=== PATIENT | female | born 1970 | race Two or more races ===

== ENCOUNTER 2017-01-25 21:49 | Inpatient (IN) | payer MEDICAID ==
[~2017-01-25] VITALS: Ht 170.2 cm; Wt 63.5 kg
[~2017-01-25 21:49] MED LIST: DIFLUCAN150 MG PO; KEFLEX500 MG ORAL; METRONIDAZOLE500 MG ORAL; NKM
[2017-01-25 22:12] VITALS: BP 166/96
[2017-01-25] MEDS ORDERED: Acetaminophen 500mg (ES) tab ORAL ONE (22:30)
[2017-01-25] MEDS ORDERED: Ertapenem 1 GM in NS 55 ML IV ONE (22:30)
[2017-01-25] MEDS ORDERED: NS 1000ml 1,900 ML IVLG ONE (22:30)
--- NOTE | 2017-01-25 22:38 | Emergency Room Report ---
History of Present Illness General Chief Complaint: Female Urogenital Problems Source: Patient Present Illness HPI Is a 46-year-old female with a history of recurrent urinary tract infection. She just finished a course of Macrobid. She had a urine culture done 7 days ago which grew out ESBL Escherichia coli. It is sensitive to Macrobid. Is intermediate to Augmentin. Unfortunately, it is resistant to all of the oral antibiotics. It is sensitive to Invanz, imipenem, and cefoxitin. It is resistant to ceftriaxone, Zosyn, Levaquin, Cipro, and Bactrim. I reviewed his urine culture from her e-mail. She presents with chief complaint of left flank pain and fever. Onset couple days. Also with oral infection that got better after amoxicillin. Body pain is 7/10. No fever or chills but no nausea no vomiting. Allergies: Coded Allergies: No Known Allergies (Unverified , 03/16/16) Patient History Past Medical History: see triage record, old chart reviewed Past Surgical History: other Pertinent Family History: none Social History: Denies: smoking Last Menstrual Period: 01/09/17 Now: No Immunizations: other Reviewed Nursing Documentation: PMH: Agreed, PSxH: Agreed Review of Systems Constitutional: Reports: fever, malaise Eye: Denies: blurred vision, eye pain ENT: Denies: ear pain, nose congestion, throat swelling Respiratory: Denies: cough, shortness of breath Cardiovascular: Denies: chest pain, palpitations Gastrointestinal: Denies: abdominal pain, diarrhea, nausea, vomiting Genitourinary: Reports: dysuria, frequency Musculoskeletal: Denies: back pain, joint pain Skin: Denies: rash Neurological: Denies: headache, numbness Endocrine: Denies: increased thirst, increased urine Hematologic/Lymphatic: Denies: easy bruising All Other Systems: negative except mentioned in HPI Physical Exam Vital Signs Date Time Temp Pulse Resp B/P Pulse Ox O2 Delivery O2 Flow Rate FiO2 01/25/17 21:57 98.4 119 16 166/96 100 Room Air vitals with tachycardia and hypertension Sp02 EP Interpretation: reviewed, normal General Appearance: well appearing, no apparent distress, alert Head: normocephalic, atraumatic Eyes: bilateral eye EOMI, bilateral eye PERRL ENT: hearing grossly normal, normal pharynx Neck: full range of motion, supple, no meningismus Respiratory: chest non-tender, lungs clear, normal breath sounds Cardiovascular #1: regular rate, rhythm, no murmur Gastrointestinal: normal bowel sounds, non tender, no mass, no organomegaly, no bruit, non-distended Genitourinary: CVA tenderness (L) Musculoskeletal: back normal, gait/station normal, normal range of motion Psychiatric: mood/affect normal Skin: warm/dry Medical Decision Making Diagnostic Impression: Primary Impression: Sepsis Qualified Codes: A41.9 - Sepsis, unspecified organism Additional Impressions: Infection due to ESBL-producing Escherichia coli UTI (urinary tract infection) Qualified Codes: N30.00 - Acute cystitis without hematuria ER Course Patient presents with left flank pain and evidence of UTI. She just finished Macrobid. It is sensitive to the Escherichia coli that cultured out a week ago. Unfortunately she also has severe resistant to multiple drugs from his Escherichia coli. I gave her Invanz. Because of the fever worrisome for sepsis. Will admit for IV antibiotics. There is a small kidney stone. She may have had an obstructing stone before that can cause frequent infection. There is no evidence of that now. Lab Results Impression labs with leukocytosis CT/MRI/US Diagnostic Results CT/MRI/US Diagnostic Results : Imaging Test Ordered: CT abdomen and pelvis Impression read by radiologist. left kidney stone. No obstruction. Last Vital Signs Date Time Temp Pulse Resp B/P Pulse Ox O2 Delivery O2 Flow Rate FiO2 01/25/17 21:57 98.4 119 16 166/96 100 Room Air Status: improved Disposition: ADMITTED INPATIENT Condition: Serious Referrals: NOT CHOSEN LÓPEZ/,REFERRING (PCP) LARRY SEGOVIA M.D. Jan 25, 2017 22:38
[2017-01-25 22:46] LABS: APPEARANCE,URINE CLEAR; KETONES,URINE NEGATIVE (NEGATIVE); LEUKOCYTE ESTERASE ,URINE 2+ (NEGATIVE); NITRITE,URINE NEGATIVE (NEGATIVE); PH,URINE 6.5 (4.5-8.0); PROTEIN,URINE 1+ (NEGATIVE); UROBILINOGEN,URINE NORMAL MG/DL (0.0-1.0)
[2017-01-25 23:11] LABS: BACTERIA,URINE FEW /HPF; RBC,URINE 0-2 /HPF (0 - 2); SQUAMOUS EPITHELIAL CELL,UR FEW /LPF (NONE/OCC)
[2017-01-25] MEDS ORDERED: Ertapenem (INVanz) Inj ONE (23:16)
[2017-01-25 23:18] LABS: MEAN CORPUSCULAR HEMOGLOBIN 31.1 PG (27.0-31.0); MEAN CORPUSCULAR HGB CONC 34.1 G/DL (32.0-36.0); MEAN CORPUSCULAR VOLUME 91 FL (80-99); MEAN PLATELET VOLUME 5.6 FL (6.5-10.1); PLATELET COUNT 289 K/UL (150-450); RED BLOOD COUNT 4.42 M/UL (4.20-5.40); RED CELL DISTRIBUTION WIDTH 12.2 % (11.6-14.8); TROPONIN I < 0.30 ng/mL (<=0.30); WHITE BLOOD COUNT 15.8 K/UL (4.8-10.8)
[2017-01-25 23:23] LABS: REFLEX LACTIC ACID YES OR NO YES
[2017-01-25 23:24] LABS: PROTHROMBIN TIME 10.3 SEC (9.30-11.50)
[2017-01-25] MEDS ORDERED: Miralax 17gm pkt ORAL PRN (23:30)
[2017-01-25] MEDS ORDERED: Nitroglycerin Subl 0.4mg tab (Bottle Of 25) SL PRN (23:30)
[2017-01-25 23:35] LABS: ALANINE AMINOTRANSFERASE 14 U/L (3-33); ALBUMIN/GLOBULIN RATIO 1.4 (1.0-2.7); ANION GAP 18 (5-15); ASPARTATE AMINO TRANSFERASE 17 U/L (5-40); CARBON DIOXIDE 22 mEQ/L (20-30); CHLORIDE 96 mEQ/L (98-107); CREATININE 0.8 mg/dL (0.5-0.9); GLOMERULAR FILTRATION RATE > 60 mL/min (>60); HEMOLYSIS 5; POTASSIUM 3.7 mEQ/L (3.4-4.9); SODIUM 136 mEQ/L (135-145); TOTAL PROTEIN 6.5 g/dL (6.6-8.7)
[2017-01-26 00:21] VITALS: BP 152/83
[2017-01-26 00:36] LABS: BAND NEUTROPHILS % (MANUAL) 2 % (0-8); LYMPHOCYTES % (MANUAL) 3 % (20-45); NEUTROPHILS % (MANUAL) 93 % (45-75); TOTAL CELLS COUNTED 100
[2017-01-26 00:37] LABS: BASOPHILS % (MANUAL) 0 % (0-2); EOSINOPHILS % (MANUAL) 0 % (0-3); PLATELET ESTIMATE ADEQUATE; PLATELET MORPHOLOGY NORMAL
[2017-01-26] MEDS ORDERED: Vancomycin 1 GM in D5W 275 ML IVPB SCH (02:00)
[2017-01-26] MEDS ORDERED: Vancomycin 1gm inj IVPB ONE (02:52)
[2017-01-26 04:00] VITALS: BP 130/66
[2017-01-26] MEDS ORDERED: Ertapenem (INVanz) Inj ONE (06:51)
[2017-01-26 06:54] LABS: BASOPHILS % (AUTO) 0.8 % (0.0-2.0); EOSINOPHILS % (AUTO) 0.4 % (0.0-3.0); LYMPHOCYTES % (AUTO) 7.4 % (20.0-45.0); MEAN CORPUSCULAR HEMOGLOBIN 29.8 PG (27.0-31.0); MEAN CORPUSCULAR HGB CONC 33.2 G/DL (32.0-36.0); MEAN CORPUSCULAR VOLUME 90 FL (80-99); MONOCYTES % (AUTO) 6.6 % (1.0-10.0); NEUTROPHILS % (AUTO) 84.7 % (45.0-75.0); PLATELET COUNT 315 K/UL (150-450); RED CELL DISTRIBUTION WIDTH 12.5 % (11.6-14.8); WHITE BLOOD COUNT 13.7 K/UL (4.8-10.8)
[2017-01-26 07:08] LABS: ALANINE AMINOTRANSFERASE 16 U/L (3-33); ALBUMIN/GLOBULIN RATIO 1.3 (1.0-2.7); ANION GAP 13 (5-15); ASPARTATE AMINO TRANSFERASE 22 U/L (5-40); CALCIUM 8.2 mg/dL (8.6-10.2); CARBON DIOXIDE 22 mEQ/L (20-30); CHLORIDE 101 mEQ/L (98-107); CREATININE 0.7 mg/dL (0.5-0.9); GLOMERULAR FILTRATION RATE > 60 mL/min (>60); HEMOLYSIS 4; SODIUM 136 mEQ/L (135-145); TOTAL PROTEIN 5.8 g/dL (6.6-8.7)
[2017-01-26 08:00] VITALS: BP_SYST 120; BP_SYST 20; BP_DIAS 79; BP_DIAS 97
[2017-01-26] MEDS ORDERED: Morphine Sulfate 4mg/ml Inj IVP PRN (08:00)
[2017-01-26] MEDS: DuoNeb 0.5-3(2.5)mg/3ml neb HHN PRN ×2 (08:41→20:32)
[2017-01-26] MEDS: Morphine Sulfate 2mg/ml Inj IVP PRN ×2 (08:53→21:14)
[2017-01-26] MEDS: Heparin 5000 units/ml inj SUBQ SCH ×2 (08:54→21:03)
[2017-01-26] MEDS ORDERED: Cefepime HCl 2 GM in D5W 110 ML IV SCH (09:00)
--- NOTE | 2017-01-26 09:11 | Diagnostic Imaging Report ---
Indication: Abdominal pain, recurrent urinary tract infection, painful urination Technique: Spiral acquisitions obtained through the abdomen and pelvis. No oral contrast utilized, per emergency room physician request No IV contrast utilized, per referring physician request.. Multiplanar reconstructions were generated. Total dose length product 525 mGycm. CTDIvol(s) 11 mGy. Dose reduction achieved using automated exposure control Comparison: None Findings: There is a 3 mm calculus within the left lower pole collecting system. No right renal calculi. No ureteral calculi, hydronephrosis, or hydroureter demonstrated. Note, however, that the distal ureters are not well demonstrated, due to a paucity of body fat. There are numerous calcifications within the left pelvis which probably represent phleboliths but ureteral calculus as etiology of any of these is not completely excludable. The bladder is unremarkable The appendix is normal. There is no evidence of diverticulosis or diverticulitis. No small bowel distention. No free or loculated intraperitoneal air or fluid. Distal esophagus, stomach, duodenum are unremarkable. Likely contrast limits assessment of the other solid organs. The gallbladder is nondistended. The bile ducts are normal in caliber. The liver, pancreas, spleen, adrenals are unremarkable. No retroperitoneal or mesenteric mass or adenopathy. No pelvic mass or adenopathy. The included lung bases demonstrate centrilobular interstitial septal thickening diffusely, as well as peripheral vague nodular opacities on the right and scattered groundglass opacities bilaterally.. The heart size is normal. Impression: Nonobstructing left lower pole 3 mm renal calculus. No evidence of ureteral calculi or obstructive uropathy Bilateral basilar pulmonary parenchymal interstitial disease, as well as nodular and groundglass opacities. This is nonspecific. Consider further evaluation with high resolution CT as clinically indicated graft no other acute or significant findings This agrees with the preliminary interpretation provided overnight by [facility]. The CT scanner at [facility] is accredited by the [employer] and the scans are performed using protocols designed to limit radiation exposure to as low as reasonably achievable to attain images of sufficient resolution adequate for diagnostic evaluation.
[2017-01-26 12:00] VITALS: BP 114/76
--- NOTE | 2017-01-26 12:07 | Consultation ---
Consult Note Consult Note Id Dic # [id number] SEJAL RUEDA M.D. Jan 26, 2017 12:07
--- NOTE | 2017-01-26 13:52 | Diagnostic Imaging Report ---
Indication: DYSPNEA Technique: One view of the chest Comparison: none Findings: There is diffuse bilateral interstitial disease. No effusions, or focal airspace consolidation. Heart size is normal. Impression: Bilateral diffuse interstitial disease, acuity indeterminate in the absence of prior studies. Differential considerations are vast, including pulmonary edema, infectious or noninfectious inflammatory process, chronic interstitial fibrotic change. Right clinical findings
[2017-01-26] MEDS: Meropenem 1 GM in NS 110 ML IVPB SCH ×2 (14:27→21:03)
--- NOTE | 2017-01-26 15:00 | History and Physical ---
History of Present Illness General Date patient seen: Jan 26, 2017 Reason for Hospitalization: Female Urogenital Problems Present Illness HPI 46-year-old female with a history of recurrent urinary tract infection with ESBL Escherichia coli. She presents with chief complaint of left flank pain and fever. Onset couple days. Also with oral infection that got better after amoxicillin. Body pain is 7/10. No fever or chills but no nausea no vomiting. She also c/o fo shortness of breath and some pleuritic chest pain for the last few days. She has been smoking since age 14, use to smoke up to two packs. Allergies: Coded Allergies: No Known Allergies (Unverified , 03/16/16) Medication History Discontinued Medications Cephalexin* (Keflex*), 500 MG ORAL Q6H Discontinued Reason: Therapy completed Fluconazole (Diflucan), 150 MG PO DAILY Discontinued Reason: Therapy completed Metronidazole* (Flagyl*), 500 MG ORAL THREE TIMES A DAY Discontinued Reason: Therapy completed No Known Medications* (NKM - No Known Medications*), 0 ., (Reported) Discontinued Reason: Therapy completed Patient History Healthcare decision maker Resuscitation status Full Code Advanced Directive on File Past Medical/Surgical History Past Medical/Surgical History: (1) Pulmonary fibrosis Review of Systems All Other Systems: negative except mentioned in HPI Physical Exam General Appearance: WD/WN Lines, tubes and drains: peripheral, central line HEENT: normocephalic Respiratory/Chest: chest wall non-tender, lungs clear Breasts: no masses Cardiovascular/Chest: normal peripheral pulses, normal rate Genitourinary/Rectal: normal genital exam Extremities: normal range of motion Last 24 Hour Vital Signs Date Time Temp Pulse Resp B/P Pulse Ox O2 Delivery O2 Flow Rate FiO2 01/26/17 12:00 99.1 93 19 114/76 97 Nasal Cannula 2.0 01/26/17 08:40 100 20 Nasal Cannula 2.0 98 01/26/17 08:40 21 01/26/17 08:40 100 20 97 Nasal Cannula 2.0 01/26/17 08:00 98.8 100 20 120/79 97 Nasal Cannula 2.0 01/26/17 04:00 98.4 96 18 130/66 99 Nasal Cannula 2.0 01/26/17 00:29 98.4 80 16 152/83 100 Room Air 01/26/17 00:21 98.4 80 16 152/83 100 Room Air 01/25/17 22:12 98.4 89 16 166/96 100 Room Air 01/25/17 21:57 98.4 119 16 166/96 100 Room Air Laboratory Tests Test 01/25/17 22:25 01/25/17 22:50 01/26/17 00:15 01/26/17 06:10 Urine Color Brown Urine Appearance Clear Urine pH 6.5 (4.5-8.0) Urine Specific [place] 1.015 (1.005-1.035) Urine Protein 1+ (NEGATIVE) H Urine Glucose (UA) Negative (NEGATIVE) Urine Ketones Negative (NEGATIVE) Urine Occult Blood 1+ (NEGATIVE) H Urine Nitrite Negative (NEGATIVE) Urine Bilirubin Negative (NEGATIVE) Urine Urobilinogen Normal MG/DL (0.0-1.0) Urine Leukocyte Esterase 2+ (NEGATIVE) H Urine RBC 0-2 /HPF (0 - 2) Urine WBC 2-4 /HPF (0 - 2) Urine Squamous Epithelial Cells Few /LPF (NONE/OCC) Urine Bacteria Few /HPF (NONE) Urine HCG, Qualitative Negative White Blood Count 15.8 K/UL (4.8-10.8) H 13.7 K/UL (4.8-10.8) H Red Blood Count 4.42 M/UL (4.20-5.40) 4.50 M/UL (4.20-5.40) Hemoglobin 13.8 G/DL (12.0-16.0) 13.4 G/DL (12.0-16.0) Hematocrit 40.3 % (37.0-47.0) 40.5 % (37.0-47.0) Mean Corpuscular Volume 91 FL (80-99) 90 FL (80-99) Mean Corpuscular Hemoglobin 31.1 PG (27.0-31.0) H 29.8 PG (27.0-31.0) Mean Corpuscular Hemoglobin Concent 34.1 G/DL (32.0-36.0) 33.2 G/DL (32.0-36.0) Red Cell Distribution Width 12.2 % (11.6-14.8) 12.5 % (11.6-14.8) Platelet Count 289 K/UL (150-450) 315 K/UL (150-450) Mean Platelet Volume 5.6 FL (6.5-10.1) L 6.0 FL (6.5-10.1) L Neutrophils (%) (Auto) % (45.0-75.0) 84.7 % (45.0-75.0) H Lymphocytes (%) (Auto) % (20.0-45.0) 7.4 % (20.0-45.0) L Monocytes (%) (Auto) % (1.0-10.0) 6.6 % (1.0-10.0) Eosinophils (%) (Auto) % (0.0-3.0) 0.4 % (0.0-3.0) Basophils (%) (Auto) % (0.0-2.0) 0.8 % (0.0-2.0) Differential Total Cells Counted 100 Neutrophils % (Manual) 93 % (45-75) H Lymphocytes % (Manual) 3 % (20-45) L Monocytes % (Manual) 2 % (1-10) Eosinophils % (Manual) 0 % (0-3) Basophils % (Manual) 0 % (0-2) Band Neutrophils 2 % (0-8) Platelet Estimate Adequate Platelet Morphology Normal Red Blood Cell Morphology Normal Prothrombin Time 10.3 SEC (9.30-11.50) Prothromb Time International Ratio 1.0 (0.9-1.1) Activated Partial Thromboplast Time 27 SEC (23-33) Sodium Level 136 mEQ/L (135-145) 136 mEQ/L (135-145) Potassium Level 3.7 mEQ/L (3.4-4.9) 4.0 mEQ/L (3.4-4.9) Chloride Level 96 mEQ/L (98-107) L 101 mEQ/L (98-107) Carbon Dioxide Level 22 mEQ/L (20-30) 22 mEQ/L (20-30) Anion Gap 18 (5-15) H 13 (5-15) Blood Urea Nitrogen 8 mg/dL (7-23) 6 mg/dL (7-23) L Creatinine 0.8 mg/dL (0.5-0.9) 0.7 mg/dL (0.5-0.9) Estimat Glomerular Filtration Rate > 60 mL/min (>60) > 60 mL/min (>60) Glucose Level 162 mg/dL (74-106) H 104 mg/dL (74-106) Lactic Acid Level 3.10 mmol/L (0.66-2.22) H 0.80 mmol/L (0.66-2.22) Calcium Level 9.0 mg/dL (8.6-10.2) 8.2 mg/dL (8.6-10.2) L Total Bilirubin 0.4 mg/dL (0.0-1.2) 0.6 mg/dL (0.0-1.2) Aspartate Amino Transf (AST/SGOT) 17 U/L (5-40) 22 U/L (5-40) Alanine Aminotransferase (ALT/SGPT) 14 U/L (3-33) 16 U/L (3-33) Alkaline Phosphatase 68 U/L (35-104) 64 U/L (35-104) Creatine Kinase MB 2.0 ng/mL (< 3.8) Troponin I < 0.30 ng/mL (<=0.30) Total Protein 6.5 g/dL (6.6-8.7) L 5.8 g/dL (6.6-8.7) L Albumin 3.8 g/dL (3.5-5.2) 3.3 g/dL (3.5-5.2) L Globulin 2.7 g/dL 2.5 g/dL Albumin/Globulin Ratio 1.4 (1.0-2.7) 1.3 (1.0-2.7) Height (Feet): 5 Height (Inches): 7.00 Weight (Pounds): 140 Medications Current Medications Medications (Trade) Dose Ordered Sig/Adriana Route PRN Reason Start Time Stop Time Status Last Admin Dose Admin Acetaminophen (Tylenol) 650 mg Q4H PRN ORAL fever 01/25/17 23:30 02/24/17 23:29 Albuterol/ Ipratropium (DuoNeb 0.5-3(2.5)mg/3ml) 3 ml Q4H PRN HHN Shortness of Breath 01/25/17 23:30 01/30/17 23:29 01/26/17 08:41 Heparin Sodium (Porcine) (Heparin 5000 units/ml) 5,000 units EVERY 12 HOURS SUBQ 01/26/17 09:00 02/25/17 08:59 01/26/17 08:54 Meropenem/Sodium Chloride (Merrem/Sodium Chloride) 110 ml @ 220 mls/hr Q8HR IVPB 01/26/17 14:00 01/31/17 13:59 01/26/17 14:27 Morphine Sulfate (Morphine Sulfate) 2 mg Q4H PRN IVP Moderate Pain (Pain Scale 4-6) 01/25/17 23:30 02/01/17 23:29 01/26/17 08:53 Morphine Sulfate 4 mg 4 mg Q4H PRN IVP Severe Pain (Pain Scale 7-10) 01/26/17 08:00 02/02/17 07:59 Nitroglycerin (Ntg) 0.4 mg Every 5 Minutes PRN SL Prn Chest Pain 01/25/17 23:30 02/24/17 23:29 Ondansetron HCl (Zofran) 4 mg Q6H PRN IVP Nausea & Vomiting 01/25/17 23:30 02/24/17 23:29 Polyethylene Glycol (Miralax) 17 gm DAILYPRN PRN ORAL Constipation 01/25/17 23:30 02/24/17 23:29 Temazepam (Restoril) 15 mg HSPRN PRN ORAL Insomnia 01/25/17 23:30 02/01/17 23:29 Assessment/Plan Problem List: (1) Sepsis ICD Codes: A41.9 - Sepsis, unspecified organism SNOMED: 81551280 Qualifiers: Qualified Codes: A41.9 - Sepsis, unspecified organism (2) Pulmonary fibrosis ICD Codes: J84.10 - Pulmonary fibrosis, unspecified SNOMED: 40825267 (3) Infection due to ESBL-producing Escherichia coli ICD Codes: A49.8 - Other bacterial infections of unspecified site; Z16.12 - Extended spectrum beta lactamase (ESBL) resistance SNOMED: 350309567 (4) UTI (urinary tract infection) ICD Codes: N39.0 - Urinary tract infection, site not specified SNOMED: 10481991 Qualifiers: Qualified Codes: N30.00 - Acute cystitis without hematuria Status Narrative IV abx per ID Ct chest respiratory treatment chest pt RAE FONTENOT Jan 26, 2017 15:00
[2017-01-26 16:00] VITALS: BP 111/70
[2017-01-26 19:00] VITALS: BP 116/72
--- NOTE | 2017-01-26 20:58 | Consultation ---
DATE OF CONSULTATION: 01/26/2017 CONSULTING PHYSICIAN: Prem Nguyen M.D REFERRING PHYSICIAN: Balbir Nguyen M.D. REASON FOR CONSULTATION: Evaluation of the patient due to ESBL E. coli. HISTORY OF PRESENT ILLNESS: The patient is a 46-year-old female, who has a history of urinary tract infection. The urine culture grew ESBL E. coli. The patient was placed on Macrobid. The patient's dysuria improved, however, now the patient comes to the hospital with general weakness, left flank tenderness, and overall feeling weak. Infectious Disease consultation has been requested for further evaluation of the patient and antibiotic management. PAST MEDICAL HISTORY: None. ALLERGIES: No known drug allergies. SOCIAL HISTORY: Significant for smoking. No history of alcohol or drug abuse. FAMILY HISTORY: Noncontributory. REVIEW OF SYSTEMS: HEENT: No recent change in vision or hearing. Pulmonary: Occasional cough. Cardiovascular: No chest pain or palpitation. Gastrointestinal: No nausea or vomiting. Genitourinary: No dysuria currently, however, the patient has left flank tenderness. Neurologic: No seizure. MEDICATIONS: Vancomycin and cefepime. PHYSICAL EXAMINATION: VITAL SIGNS: Temperature 98 degrees, blood pressure 120/79, pulse 86, and respiratory rate 18. HEENT: Mild pale conjunctivae. No icterus. NECK: No lymphadenopathy. CHEST: Coarse breathing sounds. HEART: S1 and S2. ABDOMEN: Soft. The patient has left flank tenderness. NEUROLOGIC: Awake and alert. SKIN: No rash. LABORATORY DATA: White blood cells 13, hemoglobin 13, and platelets 315,000. UA is unremarkable. BUN 6, creatinine 0.7. ALT, AST, and alkaline phosphatase are unremarkable. Ultrasound of the abdomen showed nonobstructing left lower lobe pole renal calculi. No evidence of ureteral calculi or obstructive uropathy. ASSESSMENT: The patient is a 46-year-old female, who has been admitted to this medical center with left flank pain. The patient overall is feeling weak. The patient's symptoms appeared to be due to left pyelonephritis. The patient brought to rule out possibility of bacteremia. PLAN: 1. We change antibiotic to meropenem. 2. Monitor CBC. 3. Monitor BMP. 4. Monitor cultures (blood and urine). 5. Based on the patient's clinical course and laboratories, we will do further recommendations. Thank you, Dr. Nguyen, for allowing me to participate in the care of this patient. I will follow the patient with you during this hospitalization. Prem Nguyen M.D. DR: BROCK JOB#: [id number] CC:
[2017-01-27] VITALS: BP 129/62
[2017-01-27 04:00] VITALS: BP 103/68
[2017-01-27] MEDS: Meropenem 1 GM in NS 110 ML IVPB SCH ×3 (05:01→22:00)
[2017-01-27 08:15] VITALS: BP 93/52
[2017-01-27] MEDS: Heparin 5000 units/ml inj SUBQ SCH (10:11)
[2017-01-27 12:15] VITALS: BP 109/72
--- NOTE | 2017-01-27 15:26 | Infectious Diseases Prog Note ---
Assessment/Plan Assessment/Plan A: The patient is a 46-year-old female UTI ESBL E.coli ( outside [facility] ) Pyelonephritis Lt Left flank tenderness US : nonobstructing left lower lobe pole renal calcul PLAN: cont meropenem d# 2 / , upon DC will change to Invanz to complete the course Monitor CBC Monitor BMP. Monitor cultures (blood and urine) Subjective Constitutional: Denies: anorexia, chills, drenching sweats, fatigue, fever, no symptoms, other Allergies: Coded Allergies: No Known Allergies (Unverified , 03/16/16) Objective Vital Signs Last 24 Hour Vital Signs Date Time Temp Pulse Resp B/P Pulse Ox O2 Delivery O2 Flow Rate FiO2 01/27/17 12:15 97.9 91 21 109/72 100 Room Air 01/27/17 08:15 99.1 84 24 93/52 95 Room Air 01/27/17 04:00 98.2 90 18 103/68 97 Room Air 01/27/17 01:12 98.1 01/27/17 00:00 100.6 94 18 129/62 Room Air 01/26/17 20:35 90 20 Room Air 21 01/26/17 20:34 92 20 100 Room Air 21 01/26/17 20:32 90 20 97 Room Air 21 01/26/17 19:00 98.1 100 18 116/72 Room Air 01/26/17 16:00 96.8 96 20 111/70 96 Nasal Cannula 2.0 Height (Feet): 5 Height (Inches): 7.00 Weight (Pounds): 140 HEENT: anicteric Respiratory/Chest: normal breath sounds Cardiovascular: regular rhythm Abdomen: no organomegaly Microbiology Date/Time Source Procedure Growth Status 01/25/17 22:50 Blood Blood Culture - Preliminary NO GROWTH AFTER 24 HOURS Resulted 01/25/17 22:35 Blood Blood Culture - Preliminary NO GROWTH AFTER 24 HOURS Resulted 01/26/17 02:30 Urine,Clean Catch Urine Culture - Preliminary NO GROWTH Resulted Current Medications Medications (Trade) Dose Ordered Sig/Adriana Route PRN Reason Start Time Stop Time Status Last Admin Dose Admin Acetaminophen (Tylenol) 650 mg Q4H PRN ORAL Mild Pain/Temp > 100.5 01/27/17 14:45 02/26/17 14:44 Albuterol/ Ipratropium (DuoNeb 0.5-3(2.5)mg/3ml) 3 ml Q4H PRN HHN Shortness of Breath 01/25/17 23:30 01/30/17 23:29 01/26/17 20:32 Meropenem/Sodium Chloride (Merrem/Sodium Chloride) 110 ml @ 220 mls/hr Q8HR IVPB 01/26/17 14:00 01/31/17 13:59 01/27/17 14:24 Morphine Sulfate (Morphine Sulfate) 2 mg Q4H PRN IVP Moderate Pain (Pain Scale 4-6) 01/25/17 23:30 02/01/17 23:29 01/26/17 21:14 Morphine Sulfate 4 mg 4 mg Q4H PRN IVP Severe Pain (Pain Scale 7-10) 01/26/17 08:00 02/02/17 07:59 Nitroglycerin (Ntg) 0.4 mg Every 5 Minutes PRN SL Prn Chest Pain 01/25/17 23:30 02/24/17 23:29 Ondansetron HCl (Zofran) 4 mg Q6H PRN IVP Nausea & Vomiting 01/25/17 23:30 02/24/17 23:29 Polyethylene Glycol (Miralax) 17 gm DAILYPRN PRN ORAL Constipation 01/25/17 23:30 02/24/17 23:29 Temazepam (Restoril) 15 mg HSPRN PRN ORAL Insomnia 01/25/17 23:30 02/01/17 23:29 SEJAL RUEDA M.D. Jan 27, 2017 15:26
--- NOTE | 2017-01-27 15:31 | Pulmonology Progress Note ---
Assessment/Plan Problems: (1) Sepsis (2) Pulmonary fibrosis (3) Infection due to ESBL-producing Escherichia coli (4) UTI (urinary tract infection) Assessment/Plan IV abx check CT of chest pain control hematuria, dc Heparin sq Subjective ROS Limited/Unobtainable: No Constitutional: Reports: no symptoms Respiratory: Reports: no symptoms Allergies: Coded Allergies: No Known Allergies (Unverified , 03/16/16) Objective Last 24 Hour Vital Signs Date Time Temp Pulse Resp B/P Pulse Ox O2 Delivery O2 Flow Rate FiO2 01/27/17 12:15 97.9 91 21 109/72 100 Room Air 01/27/17 08:15 99.1 84 24 93/52 95 Room Air 01/27/17 04:00 98.2 90 18 103/68 97 Room Air 01/27/17 01:12 98.1 01/27/17 00:00 100.6 94 18 129/62 Room Air 01/26/17 20:35 90 20 Room Air 21 01/26/17 20:34 92 20 100 Room Air 21 01/26/17 20:32 90 20 97 Room Air 21 01/26/17 19:00 98.1 100 18 116/72 Room Air 01/26/17 16:00 96.8 96 20 111/70 96 Nasal Cannula 2.0 Intake and Output 01/26/17 01/27/17 19:00 07:00 Intake Total 460 ml Balance 460 ml Intake Oral 240 ml IV Total 220 ml # Voids 3 General Appearance: WD/WN HEENT: normocephalic Respiratory/Chest: chest wall non-tender, lungs clear Cardiovascular: normal peripheral pulses, normal rate Abdomen: normal bowel sounds, soft, non tender Genitourinary: normal external genitalia Skin: no rash Microbiology Date/Time Source Procedure Growth Status 01/25/17 22:50 Blood Blood Culture - Preliminary NO GROWTH AFTER 24 HOURS Resulted 01/25/17 22:35 Blood Blood Culture - Preliminary NO GROWTH AFTER 24 HOURS Resulted 01/26/17 02:30 Urine,Clean Catch Urine Culture - Preliminary NO GROWTH Resulted Current Medications Medications (Trade) Dose Ordered Sig/Adriana Route PRN Reason Start Time Stop Time Status Last Admin Dose Admin Acetaminophen (Tylenol) 650 mg Q4H PRN ORAL Mild Pain/Temp > 100.5 01/27/17 14:45 02/26/17 14:44 Albuterol/ Ipratropium (DuoNeb 0.5-3(2.5)mg/3ml) 3 ml Q4H PRN HHN Shortness of Breath 01/25/17 23:30 01/30/17 23:29 01/26/17 20:32 Meropenem/Sodium Chloride (Merrem/Sodium Chloride) 110 ml @ 220 mls/hr Q8HR IVPB 01/26/17 14:00 01/31/17 13:59 01/27/17 14:24 Morphine Sulfate (Morphine Sulfate) 2 mg Q4H PRN IVP Moderate Pain (Pain Scale 4-6) 01/25/17 23:30 02/01/17 23:29 01/26/17 21:14 Morphine Sulfate 4 mg 4 mg Q4H PRN IVP Severe Pain (Pain Scale 7-10) 01/26/17 08:00 02/02/17 07:59 Nitroglycerin (Ntg) 0.4 mg Every 5 Minutes PRN SL Prn Chest Pain 01/25/17 23:30 02/24/17 23:29 Ondansetron HCl (Zofran) 4 mg Q6H PRN IVP Nausea & Vomiting 01/25/17 23:30 02/24/17 23:29 Polyethylene Glycol (Miralax) 17 gm DAILYPRN PRN ORAL Constipation 01/25/17 23:30 02/24/17 23:29 Temazepam (Restoril) 15 mg HSPRN PRN ORAL Insomnia 01/25/17 23:30 02/01/17 23:29 RAE FONTENOT Jan 27, 2017 15:31
--- NOTE | 2017-01-27 17:04 | Diagnostic Imaging Report ---
Clinical Indication: DYSPNEA Technique: Spiral acquisition obtained through the chest. No IV contrast utilized, per high resolution protocol. Axial 5 x 5 mm slices were reconstructed. Axial 1 mm thick slices were reconstructed using high resolution algorithm at 10 mm intervals. Multiplanar reconstructions generated. Total dose length product 605 mGycm. CTDIvol(s) 16 mGy. Dose reduction achieved using automated exposure control Comparison: None Findings: There are bilateral moderate to large pleural effusions. There is resultant bilateral basilar compressive parenchymal atelectasis in the lower lobes. High-resolution images demonstrate subtle centrilobular smooth interstitial septal thickening diffusely, most striking in the inferior lingula and left lower lobe. This is less striking on CT images than on recent chest radiograph, however. No evidence of bronchiectasis, generalized nodularity, or groundglass opacity. There is a 5 mm nodular opacity seen in the posteromedial left lower lobe, image 29 series 5 and image 11 of series 9, much better appreciated on the high-resolution images. There is a 3 mm pleural-based opacity in the superior segment right lower lobe, image 20 of series 5. No evidence of consolidation. No large masses are demonstrated. There is some scarring at the left lung apex. There is a small anterior wall pericardial effusion. The heart size is normal. There are prominent but not frankly enlarged precarinal and left hilar nodes, measuring up to 12 mm long axis dimension. The included portions of the thyroid are unremarkable. No axillary or chest wall mass or adenopathy demonstrated. The esophagus is unremarkable. The bones are unremarkable. Impression: Bilateral moderate to large pleural effusions. Resultant basilar compressive atelectatic changes Smooth interstitial septal thickening diffusely, particularly of the left lower lobe and inferior lingula. Appearance is nonspecific, although most suggestive of interstitial edema. Findings are somewhat less striking than on plain radiograph of the previous day, may indicate some improvement. Small pericardial effusion Minimal left apical parenchymal scarring The CT scanner at [facility] is accredited by the [employer] and the scans are performed using protocols designed to limit radiation exposure to as low as reasonably achievable to attain images of sufficient resolution adequate for diagnostic evaluation.
[2017-01-27 20:00] VITALS: BP 115/74
[2017-01-28] VITALS: BP 112/75
[2017-01-28 04:00] VITALS: BP 117/76
[2017-01-28] MEDS: Meropenem 1 GM in NS 110 ML IVPB SCH ×3 (06:14→22:19)
[2017-01-28 07:23] LABS: BASOPHILS % (AUTO) 0.4 % (0.0-2.0); EOSINOPHILS % (AUTO) 3.9 % (0.0-3.0); LYMPHOCYTES % (AUTO) 25.2 % (20.0-45.0); MEAN CORPUSCULAR HEMOGLOBIN 30.2 PG (27.0-31.0); MEAN CORPUSCULAR HGB CONC 33.2 G/DL (32.0-36.0); MEAN CORPUSCULAR VOLUME 91 FL (80-99); MEAN PLATELET VOLUME 5.7 FL (6.5-10.1); MONOCYTES % (AUTO) 6.1 % (1.0-10.0); NEUTROPHILS % (AUTO) 64.4 % (45.0-75.0); PLATELET COUNT 320 K/UL (150-450); RED BLOOD COUNT 4.26 M/UL (4.20-5.40); RED CELL DISTRIBUTION WIDTH 12.8 % (11.6-14.8); WHITE BLOOD COUNT 8.6 K/UL (4.8-10.8)
[2017-01-28 07:33] LABS: ALANINE AMINOTRANSFERASE 20 U/L (3-33); ALBUMIN/GLOBULIN RATIO 1.1 (1.0-2.7); ANION GAP 14 (5-15); ASPARTATE AMINO TRANSFERASE 18 U/L (5-40); CALCIUM 8.9 mg/dL (8.6-10.2); CARBON DIOXIDE 23 mEQ/L (20-30); CHLORIDE 100 mEQ/L (98-107); CREATININE 0.7 mg/dL (0.5-0.9); CRP QUANT 8.3 mg/dL (< 0.5); GLOMERULAR FILTRATION RATE > 60 mL/min (>60); HEMOLYSIS 2; MAGNESIUM 1.9 mg/dL (1.7-2.5); POTASSIUM 4.1 mEQ/L (3.4-4.9); SODIUM 137 mEQ/L (135-145); TOTAL PROTEIN 6.3 g/dL (6.6-8.7)
[2017-01-28 08:09] VITALS: BP 125/73
[2017-01-28 09:24] LABS: ERYTHROCYTE SEDIMENTATION RATE 60 MM/HR (0-20)
--- NOTE | 2017-01-28 10:09 | Infectious Diseases Prog Note ---
Assessment/Plan Assessment/Plan A: The patient is a 46-year-old female UTI ESBL E.coli ( outside [facility] ) Pyelonephritis Lt Left flank tenderness , SP US : nonobstructing left lower lobe pole renal calcul Dental pain x 1 d ? infection no obvious abscess Pleural effusions CT: Bilateral moderate to large pleural effusions PLAN: cont meropenem d# 3 / , upon DC will change to Invanz to complete the course Monitor CBC Monitor BMP. Monitor cultures (blood and urine) Subjective Constitutional: Denies: anorexia, chills, drenching sweats, fatigue, fever, no symptoms, other Allergies: Coded Allergies: No Known Allergies (Unverified , 03/16/16) Objective Vital Signs Last 24 Hour Vital Signs Date Time Temp Pulse Resp B/P Pulse Ox O2 Delivery O2 Flow Rate FiO2 01/28/17 08:09 98.1 97 19 125/73 97 Room Air 01/28/17 04:00 97.7 84 18 117/76 97 Room Air 01/28/17 00:00 97.3 89 18 112/75 99 Room Air 01/27/17 20:00 98.2 95 18 115/74 100 Room Air 01/27/17 19:30 94 20 Room Air 21 01/27/17 12:15 97.9 91 21 109/72 100 Room Air Height (Feet): 5 Height (Inches): 7.00 Weight (Pounds): 140 HEENT: anicteric Respiratory/Chest: normal breath sounds Cardiovascular: regular rhythm Abdomen: no organomegaly Microbiology Date/Time Source Procedure Growth Status 01/25/17 22:50 Blood Blood Culture - Preliminary NO GROWTH AFTER 48 HOURS Resulted 01/25/17 22:35 Blood Blood Culture - Preliminary NO GROWTH AFTER 48 HOURS Resulted 01/26/17 02:30 Urine,Clean Catch Urine Culture - Preliminary NO GROWTH AFTER 24 HOURS Resulted Laboratory Tests Test 01/28/17 06:23 White Blood Count 8.6 K/UL (4.8-10.8) Red Blood Count 4.26 M/UL (4.20-5.40) Hemoglobin 12.8 G/DL (12.0-16.0) Hematocrit 38.7 % (37.0-47.0) Mean Corpuscular Volume 91 FL (80-99) Mean Corpuscular Hemoglobin 30.2 PG (27.0-31.0) Mean Corpuscular Hemoglobin Concent 33.2 G/DL (32.0-36.0) Red Cell Distribution Width 12.8 % (11.6-14.8) Platelet Count 320 K/UL (150-450) Mean Platelet Volume 5.7 FL (6.5-10.1) L Neutrophils (%) (Auto) 64.4 % (45.0-75.0) Lymphocytes (%) (Auto) 25.2 % (20.0-45.0) Monocytes (%) (Auto) 6.1 % (1.0-10.0) Eosinophils (%) (Auto) 3.9 % (0.0-3.0) H Basophils (%) (Auto) 0.4 % (0.0-2.0) Erythrocyte Sedimentation Rate 60 MM/HR (0-20) H Sodium Level 137 mEQ/L (135-145) Potassium Level 4.1 mEQ/L (3.4-4.9) Chloride Level 100 mEQ/L (98-107) Carbon Dioxide Level 23 mEQ/L (20-30) Anion Gap 14 (5-15) Blood Urea Nitrogen 5 mg/dL (7-23) L Creatinine 0.7 mg/dL (0.5-0.9) Estimat Glomerular Filtration Rate > 60 mL/min (>60) Glucose Level 99 mg/dL (74-106) Calcium Level 8.9 mg/dL (8.6-10.2) Phosphorus Level 3.0 mg/dL (2.5-4.8) Magnesium Level 1.9 mg/dL (1.7-2.5) Total Bilirubin 0.3 mg/dL (0.0-1.2) Aspartate Amino Transf (AST/SGOT) 18 U/L (5-40) Alanine Aminotransferase (ALT/SGPT) 20 U/L (3-33) Alkaline Phosphatase 74 U/L (35-104) C-Reactive Protein, Quantitative 8.3 mg/dL (< 0.5) H Total Protein 6.3 g/dL (6.6-8.7) L Albumin 3.4 g/dL (3.5-5.2) L Globulin 2.9 g/dL Albumin/Globulin Ratio 1.1 (1.0-2.7) HIV (1&2) Antibody Rapid Negative (NEGATIVE) Current Medications Medications (Trade) Dose Ordered Sig/Adriana Route PRN Reason Start Time Stop Time Status Last Admin Dose Admin Acetaminophen (Tylenol) 650 mg Q4H PRN ORAL Mild Pain/Temp > 100.5 01/27/17 14:45 02/26/17 14:44 01/27/17 15:47 Albuterol/ Ipratropium (DuoNeb 0.5-3(2.5)mg/3ml) 3 ml Q4H PRN HHN Shortness of Breath 01/25/17 23:30 01/30/17 23:29 01/26/17 20:32 Meropenem/Sodium Chloride (Merrem/Sodium Chloride) 110 ml @ 220 mls/hr Q8HR IVPB 01/26/17 14:00 01/31/17 13:59 01/28/17 06:14 Nitroglycerin 0.4 mg 0.4 mg Every 5 Minutes PRN SL Prn Chest Pain 01/25/17 23:30 02/24/17 23:29 Ondansetron HCl (Zofran) 4 mg Q6H PRN IVP Nausea & Vomiting 01/25/17 23:30 02/24/17 23:29 Polyethylene Glycol (Miralax) 17 gm DAILYPRN PRN ORAL Constipation 01/25/17 23:30 02/24/17 23:29 Temazepam (Restoril) 15 mg HSPRN PRN ORAL Insomnia 01/25/17 23:30 02/01/17 23:29 SEJAL RUEDA M.D. Jan 28, 2017 10:09
[2017-01-28 11:53] VITALS: BP 126/80
[2017-01-28 16:07] VITALS: BP 109/68
[2017-01-28] MEDS: Norco 5mg/325mg tab ORAL PRN (16:47)
--- NOTE | 2017-01-28 18:20 | Pulmonology Progress Note ---
Assessment/Plan Problems: (1) Sepsis (2) Pulmonary fibrosis (3) Infection due to ESBL-producing Escherichia coli (4) UTI (urinary tract infection) Assessment/Plan IV abx CT of chest reviewee pain control dc planning with home health to give IV antibiotics in am Subjective Interval Events: wants to smoke Allergies: Coded Allergies: No Known Allergies (Unverified , 03/16/16) Objective Last 24 Hour Vital Signs Date Time Temp Pulse Resp B/P Pulse Ox O2 Delivery O2 Flow Rate FiO2 01/28/17 16:07 97.9 83 20 109/68 99 Room Air 01/28/17 11:53 98.6 91 22 126/80 95 Room Air 01/28/17 08:09 98.1 97 19 125/73 97 Room Air 01/28/17 06:48 89 18 Room Air 01/28/17 04:00 97.7 84 18 117/76 97 Room Air 01/28/17 00:00 97.3 89 18 112/75 99 Room Air 01/27/17 20:00 98.2 95 18 115/74 100 Room Air 01/27/17 19:30 94 20 Room Air 21 Intake and Output 01/27/17 01/28/17 19:00 07:00 Intake Total 1070 ml Balance 1070 ml Intake Oral 960 ml IV Total 110 ml # Voids 2 Objective General Appearance: WD/WN HEENT: normocephalic Respiratory/Chest: chest wall non-tender, lungs clear, normal breath sounds, no respiratory distress Cardiovascular: normal peripheral pulses, normal rate, regular rhythm Abdomen: normal bowel sounds, soft, non tender, no organomegaly, non distended Skin: no rash 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 Lymphatic: no neck adenopathy Microbiology Date/Time Source Procedure Growth Status 01/25/17 22:50 Blood Blood Culture - Preliminary NO GROWTH AFTER 48 HOURS Resulted 01/25/17 22:35 Blood Blood Culture - Preliminary NO GROWTH AFTER 48 HOURS Resulted 01/26/17 02:30 Urine,Clean Catch Urine Culture - Preliminary NO GROWTH AFTER 24 HOURS Resulted Laboratory Tests 01/28/17 06:23: White Blood Count 8.6, Red Blood Count 4.26, Hemoglobin 12.8, Hematocrit 38.7, Mean Corpuscular Volume 91, Mean Corpuscular Hemoglobin 30.2, Mean Corpuscular Hemoglobin Concent 33.2, Red Cell Distribution Width 12.8, Platelet Count 320, Mean Platelet Volume 5.7L, Neutrophils (%) (Auto) 64.4, Lymphocytes (%) (Auto) 25.2, Monocytes (%) (Auto) 6.1, Eosinophils (%) (Auto) 3.9H, Basophils (%) (Auto ) 0.4, Erythrocyte Sedimentation Rate 60H, Sodium Level 137, Potassium Level 4.1 , Chloride Level 100, Carbon Dioxide Level 23, Anion Gap 14, Blood Urea Nitrogen 5L, Creatinine 0.7, Estimat Glomerular Filtration Rate > 60, Glucose Level 99, Calcium Level 8.9, Phosphorus Level 3.0, Magnesium Level 1.9, Total Bilirubin 0.3, Aspartate Amino Transf (AST/SGOT) 18, Alanine Aminotransferase ( ALT/SGPT) 20, Alkaline Phosphatase 74, C-Reactive Protein, Quantitative 8.3H, Total Protein 6.3L, Albumin 3.4L, Globulin 2.9, Albumin/Globulin Ratio 1.1, HIV (1&2) Antibody Rapid Negative Current Medications Medications (Trade) Dose Ordered Sig/Adriana Route PRN Reason Start Time Stop Time Status Last Admin Dose Admin Acetaminophen (Tylenol) 650 mg Q4H PRN ORAL Mild Pain/Temp > 100.5 01/27/17 14:45 02/26/17 14:44 01/28/17 15:56 Acetaminophen/ Hydrocodone Bitart ([place] 5/325) 1 tab Q6H PRN ORAL For Pain 4-10 01/28/17 16:30 02/04/17 16:29 01/28/17 16:47 Albuterol/ Ipratropium (DuoNeb 0.5-3(2.5)mg/3ml) 3 ml Q4H PRN HHN Shortness of Breath 01/25/17 23:30 01/30/17 23:29 01/26/17 20:32 Meropenem/Sodium Chloride (Merrem/Sodium Chloride) 110 ml @ 220 mls/hr Q8HR IVPB 01/26/17 14:00 01/31/17 13:59 01/28/17 14:18 Nitroglycerin 0.4 mg 0.4 mg Every 5 Minutes PRN SL Prn Chest Pain 01/25/17 23:30 02/24/17 23:29 Ondansetron HCl (Zofran) 4 mg Q6H PRN IVP Nausea & Vomiting 01/25/17 23:30 02/24/17 23:29 Polyethylene Glycol (Miralax) 17 gm DAILYPRN PRN ORAL Constipation 01/25/17 23:30 02/24/17 23:29 Temazepam (Restoril) 15 mg HSPRN PRN ORAL Insomnia 01/25/17 23:30 02/01/17 23:29 RAE FONTENOT Jan 28, 2017 18:20
[2017-01-28 20:00] VITALS: BP_SYST 106; BP_SYST 109; BP_DIAS 67; BP_DIAS 68
[2017-01-29] VITALS: BP 109/86
[2017-01-29 04:00] VITALS: BP 122/76
[2017-01-29] MEDS: Meropenem 1 GM in NS 110 ML IVPB SCH ×3 (05:06→22:11)
[2017-01-29 07:42] VITALS: BP 106/67
[2017-01-29 11:56] VITALS: BP 132/89
[2017-01-29] MEDS: Norco 5mg/325mg tab ORAL PRN ×2 (14:28→23:54)
[2017-01-29 16:00] VITALS: BP 128/83
--- NOTE | 2017-01-29 17:17 | Infectious Diseases Prog Note ---
Assessment/Plan Assessment/Plan A: The patient is a 46-year-old female UTI ESBL E.coli ( outside [facility] ) Pyelonephritis Lt Left flank tenderness , SP US : nonobstructing left lower lobe pole renal calcul Dental pain x 1 d ? infection no obvious abscess Pleural effusions CT: Bilateral moderate to large pleural effusions PLAN: cont meropenem d# / , upon DC will change to Invanz to complete the course Monitor CBC Monitor BMP. Monitor cultures (blood ) possible DC in AM Subjective Constitutional: Denies: anorexia, chills, drenching sweats, fatigue, fever, no symptoms, other Allergies: Coded Allergies: No Known Allergies (Unverified , 03/16/16) Objective Vital Signs Last 24 Hour Vital Signs Date Time Temp Pulse Resp B/P Pulse Ox O2 Delivery O2 Flow Rate FiO2 01/29/17 16:00 98.2 102 16 128/83 99 Room Air 01/29/17 15:25 97.0 01/29/17 11:56 97.0 95 15 132/89 100 Room Air 01/29/17 07:42 97.5 85 15 106/67 98 Room Air 01/29/17 07:10 86 18 Room Air 21 01/29/17 04:00 98.2 71 20 122/76 100 Room Air 01/29/17 00:00 97.8 78 20 109/86 97 Room Air 2.0 21 01/28/17 20:00 98.1 82 20 106/67 96 Room Air 01/28/17 20:00 97.9 83 20 109/68 99 Room Air 2.0 21 01/28/17 19:05 91 20 Room Air 21 Height (Feet): 5 Height (Inches): 7.00 Weight (Pounds): 140 HEENT: atraumatic Respiratory/Chest: no respiratory distress Cardiovascular: regularly irregular Abdomen: no organomegaly Current Medications Medications (Trade) Dose Ordered Sig/Adriana Route PRN Reason Start Time Stop Time Status Last Admin Dose Admin Acetaminophen (Tylenol) 650 mg Q4H PRN ORAL Mild Pain/Temp > 100.5 01/27/17 14:45 02/26/17 14:44 01/28/17 23:25 Acetaminophen/ Hydrocodone Bitart ([place] 5/325) 1 tab Q6H PRN ORAL For Pain 4-10 01/28/17 16:30 02/04/17 16:29 01/29/17 14:28 Albuterol/ Ipratropium (DuoNeb 0.5-3(2.5)mg/3ml) 3 ml Q4H PRN HHN Shortness of Breath 01/25/17 23:30 01/30/17 23:29 01/26/17 20:32 Meropenem/Sodium Chloride (Merrem/Sodium Chloride) 110 ml @ 220 mls/hr Q8HR IVPB 01/26/17 14:00 01/31/17 13:59 01/29/17 14:21 Nitroglycerin 0.4 mg 0.4 mg Every 5 Minutes PRN SL Prn Chest Pain 01/25/17 23:30 02/24/17 23:29 Ondansetron HCl (Zofran) 4 mg Q6H PRN IVP Nausea & Vomiting 01/25/17 23:30 02/24/17 23:29 Polyethylene Glycol (Miralax) 17 gm DAILYPRN PRN ORAL Constipation 01/25/17 23:30 02/24/17 23:29 Temazepam (Restoril) 15 mg HSPRN PRN ORAL Insomnia 01/25/17 23:30 02/01/17 23:29 SEJAL RUEDA M.D. Jan 29, 2017 17:17
[2017-01-29 20:00] VITALS: BP 134/91
--- NOTE | 2017-01-29 22:04 | Pulmonology Progress Note ---
Assessment/Plan Problems: (1) Sepsis (2) Pulmonary fibrosis (3) Infection due to ESBL-producing Escherichia coli (4) UTI (urinary tract infection) Assessment/Plan IV abx CT of chest reviewee pain control dc planning with home health to give IV antibiotics in am Subjective Allergies: Coded Allergies: No Known Allergies (Unverified , 03/16/16) Objective Last 24 Hour Vital Signs Date Time Temp Pulse Resp B/P Pulse Ox O2 Delivery O2 Flow Rate FiO2 01/29/17 20:00 98.1 104 17 134/91 99 Room Air 01/29/17 19:25 84 21 Room Air 21 01/29/17 16:00 98.2 102 16 128/83 99 Room Air 01/29/17 15:25 97.0 01/29/17 11:56 97.0 95 15 132/89 100 Room Air 01/29/17 07:42 97.5 85 15 106/67 98 Room Air 01/29/17 07:10 86 18 Room Air 21 01/29/17 04:00 98.2 71 20 122/76 100 Room Air 01/29/17 00:00 97.8 78 20 109/86 97 Room Air 2.0 21 Intake and Output 01/28/17 01/29/17 19:00 07:00 Intake Total 480 ml 110 ml Balance 480 ml 110 ml Intake Oral 480 ml IV Total 110 ml # Voids 1 Objective General Appearance: WD/WN HEENT: normocephalic Respiratory/Chest: chest wall non-tender, lungs clear, normal breath sounds, no respiratory distress Cardiovascular: normal peripheral pulses, normal rate, regular rhythm Abdomen: normal bowel sounds, soft, non tender, no organomegaly, non distended Skin: no rash 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 Lymphatic: no neck adenopathy Current Medications Medications (Trade) Dose Ordered Sig/Adriana Route PRN Reason Start Time Stop Time Status Last Admin Dose Admin Acetaminophen (Tylenol) 650 mg Q4H PRN ORAL Mild Pain/Temp > 100.5 01/27/17 14:45 02/26/17 14:44 01/28/17 23:25 Acetaminophen/ Hydrocodone Bitart ([place] 5/325) 1 tab Q6H PRN ORAL For Pain 4-10 01/28/17 16:30 02/04/17 16:29 01/29/17 14:28 Albuterol/ Ipratropium (DuoNeb 0.5-3(2.5)mg/3ml) 3 ml Q4H PRN HHN Shortness of Breath 01/25/17 23:30 01/30/17 23:29 01/26/17 20:32 Meropenem/Sodium Chloride (Merrem/Sodium Chloride) 110 ml @ 220 mls/hr Q8HR IVPB 01/26/17 14:00 01/31/17 13:59 01/29/17 14:21 Nitroglycerin 0.4 mg 0.4 mg Every 5 Minutes PRN SL Prn Chest Pain 01/25/17 23:30 02/24/17 23:29 Ondansetron HCl (Zofran) 4 mg Q6H PRN IVP Nausea & Vomiting 01/25/17 23:30 02/24/17 23:29 Polyethylene Glycol (Miralax) 17 gm DAILYPRN PRN ORAL Constipation 01/25/17 23:30 02/24/17 23:29 Temazepam (Restoril) 15 mg HSPRN PRN ORAL Insomnia 01/25/17 23:30 02/01/17 23:29 RAE FONTENOT Jan 29, 2017 22:04
[2017-01-29] MEDS ORDERED: D5W 275ml ONE (22:43)
[2017-01-29] MEDS ORDERED: Tubing IV Secondary IV ONE (22:43)
[2017-01-29] MEDS ORDERED: NS 550ML IV ONE (22:43)
[2017-01-30] VITALS: BP 117/77
[2017-01-30 02:08] LABS: APPEARANCE,URINE SLIGHTLY CLOUDY; KETONES,URINE 1+ (NEGATIVE); LEUKOCYTE ESTERASE ,URINE 3+ (NEGATIVE); NITRITE,URINE NEGATIVE (NEGATIVE); PH,URINE 7 (4.5-8.0); PROTEIN,URINE NEGATIVE (NEGATIVE); UROBILINOGEN,URINE NORMAL MG/DL (0.0-1.0)
[2017-01-30 02:30] LABS: AMORPHOUS SEDIMENT,UR MANY /LPF; BACTERIA,URINE MODERATE /HPF; SQUAMOUS EPITHELIAL CELL,UR FEW /LPF (NONE/OCC); WBC,URINE 15-20 /HPF (0 - 2)
--- NOTE | 2017-01-30 03:28 | Consultation ---
DATE OF CONSULTATION: 01/29/2017 NEHISTORY OF PRESENT ILLNESS: This is a 46-year-old female with a history of recurrent urinary tract infection, and infection due to Escherichia coli, pulmonary fibrosis, and substance abuse who has been admitted to the hospital for treatment. She is currently receiving intravenous antibiotics. Psychiatrist was consulted, as the patient presented with depression. During the evaluation, the patient endorsed depressed mood, anhedonia, worthlessness, and hopelessness. She elaborated in regards to her medical condition being homeless, stated that the infection is still coming back in different parts of her body. She believes that her treatment is not effective. She also requested to be allowed to smoke outside of the hospital during her current hospitalization; however, it was explained to her that it is against the hospital policy. The patient stated that if she is not able to smoke, she would rather leave against medical advice. During the evaluation, she was able to understand, process, communicate, and appreciate the informations given to her in regards to her current medical conditions, pros and cons of staying in the hospital versus leaving the hospital. She was also very hopeless about getting better and the infection getting resolved. PAST PSYCHIATRIC HISTORY: Denies any history of psychiatric illness. Denied any psychiatric hospitalization. Denies any suicide attempts. PAST MEDICAL HISTORY: Includes recurrent urinary tract infection and medication resistant infection. ALLERGIES: No known drug allergies. SUBSTANCE ABUSE HISTORY: No history of illicit drug use or alcohol. She is a smoker. There is no toxicology to verify this information. 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 She is distant from her parents. She recently lost her job. MENTAL STATUS EXAMINATION: Alert and oriented x4. Cooperative with exam. Mood is depressed. Affect is flat and congruent with mood. Thought process is linear. Thought content, no suicidal or homicidal ideation. ASSESSMENT: AXIS I: Major depressive disorder. AXIS II: Deferred. AXIS III: Sepsis. AXIS IV: High. AXIS V: 30. PLAN: 1. I do recommend that antidepressant preferably selective serotonin reuptake inhibitors in this patient. However, she was reluctant to take any psychotropic medication at this time. 2. She does not believe that she has any depression or anxiety or any sort of mental illness. 3. The patient has capacity to leave against medical advice. If she decides to the hospital, she may leave. 4. Discussed the case with the charge nurse, as well as with the staff. Tyler Ibarra M.D. DR: SEGUNDO JOB#: [id number] CC:
[2017-01-30 04:00] VITALS: BP 121/78
[2017-01-30] MEDS: Meropenem 1 GM in NS 110 ML IVPB SCH (05:18)
[2017-01-30 08:08] VITALS: BP 131/86
--- NOTE | 2017-02-02 10:31 | Discharge Summary ---
Discharge Summary Hospital Course Date of Admission Jan 25, 2017 at 23:13 Date of Discharge Jan 30, 2017 at 08:58 Admitting Diagnosis Sepsis, pyelo HPI Chela Joyner is a 46 year old female who was admitted on Jan 25, 2017 at 23:13 for Sepsis,Pyelo Hospital Course dc summary #[id number] Discharge Discharge Disposition Patient signed AMA Discharge Diagnoses: Discharge Instructions Discharge Instructions Special Instructions I have been assigned to complete a D/C Summary on this account. I was not involved in the patient management Rivera Lozano)Tabitha NP Feb 02, 2017 10:31
--- NOTE | 2017-02-03 01:58 | Discharge Summary 2 SIG ---
DATE OF ADMISSION: 01/25/2017 DATE OF SIGNING AGAINST MEDICAL ADVISE : 01/30/2017 REASON FOR ADMISSION: 46-year-old female with a history of recurrent urinary tract infection presented with fever and left flank pain for few days. The patient also had a dental infection, which improved after amoxicillin treatment. No fevers. No chills. No nausea. No vomiting. Workup in the emergency room revealed leukocytosis and elevated lactic acid. The patient was tachycardic and febrile. Urinalysis revealed few bacteria, no pyuria and negative for nitrate. Imaging revealed nonobstructive left renal calculi. The patient was admitted for further management. ADMITTING DIAGNOSES: 1. Sepsis. 2. Recurrent urinary tract infection with Escherichia coli, Extended-spectrum beta-lactamase. 3. Pyelonephritis. 4. Nonobstructive left renal calculi. HOSPITAL COURSE: The patient was admitted. The patient was started on empiric antibiotics. Blood culture were negative. Urine culture was negative. Repeated urinalysis on 01/30/2017 revealed moderate bacteria and pyuria. The patient was on antibiotic as per ID. Chest x-ray revealed bilateral diffuse interstitial disease, acuity undetermined. Subsequently, CT of the chest was ordered, which revealed basilar compressive atelectatic changes and bilateral pleural effusion. Findings, seen on the previous day on CXR, indicate some improvement. Supplemental oxygen and pulmonary toilet provided as needed. Respiratory status was stable;pulse oximetry was stable on the room air. The patient wanted to leave against medical advice. Psychiatric evaluation was requested. Psychiatrist diagnosed the patient with major depressive disorder and advised the patient to start her on selective serotonin reuptake inhibitor. However, the patient was reluctant to start any antidepressant medication. She did not believe that she has any depression or anxiety. According to psychiatrist, the patient had a mental capacity to make informed decision and can leave against medical advice. The risks and consequences for leaving against medical advice were discussed with the patient by the nursing staff. The patient insisted on leaving and signed the form. FINAL DIAGNOSES: 1. Sepsis. 2. Recurrent urinary tract infection with Extended-spectrum beta-lactamase Escherichia coli. 3. Pyelonephritis. 4. Nonobstructive left renal calculi. 5. Bilateral pleural effusion. 6. Major depression. Balbir Nguyen M.D. I have been assigned to dictate discharge summary on this account and I was not involved in the patient's management. Tabitha Stafford (Vanchtein) NJustinePJustine DR: DEBRA JOB#: [id number] CC: FELIX
== END 2017-01-30 08:58 | disposition left against medical advice (07) | DRG 720 ==
LOC: ENRESERVDT → ENRESERVTM → EMR 22:00 → 4E 23:13 → EDBEDREQ 23:51
DX: A41.9 Sepsis, unspecified organism (principal); J84.10 Pulmonary fibrosis, unspecified; N39.0 Urinary tract infection, site not specified; B96.20 Unspecified Escherichia coli [E. coli] as the cause of diseases classified elsewhere; Z16.12 Extended spectrum beta lactamase (ESBL) resistance; N12 Tubulo-interstitial nephritis, not specified as acute or chronic; N20.0 Calculus of kidney; F32.9 Major depressive disorder, single episode, unspecified; Z59.0 Homelessness; F17.200 Nicotine dependence, unspecified, uncomplicated
CPT/HCPCS: 36415; 71010; 71250; 74176; 80053; 81001; 81003; 81025; 82553; 83605; 83735; 84100; 84484; 85007; 85025; 85610; 85651; 85730; 86140; 86703; 87040; 87086; 93005; 94640; 94664; J7620

== ENCOUNTER 2018-04-11 17:32 | Emergency (ER) | payer SELFPAY ==
[~2018-04-11] VITALS: Ht 170.2 cm; Wt 61.7 kg
[2018-04-11 18:02] VITALS: BP 156/96
--- NOTE | 2018-04-11 18:26 | Emergency Room Report ---
History of Present Illness General Chief Complaint: General Complaint Source: Patient, Medical Record Present Illness HPI 47-year-old female presents with multiple complaints, she reports she was at her urgent care doctor's office in he sent her here because he didn't know to do with her. She reports she's been having dysuria for many months, has been diagnosed with Escherichia coli multiple times, is not currently on antibiotics. She also has a rash that is itchy with small patches all over, but mainly the back of her head and arms, she reports she feels like she has some white stuff in her tongue. She denies palmar or sole involvement of her rash. Does not have involvement of this red rash or sloughing in her genital anal or oral area. She is not currently on antibiotics or any new medications. She reports she's also been diagnosed with thrush. she says she's been admitted to our hospital as well as [facility] in the past for similar complaints. She reports she's not ever been able to follow-up with a cistern room working supervisor, infectious disease specialist, or bpo specialist. Allergies: Coded Allergies: No Known Allergies (Unverified , 03/16/16) Patient History Past Medical History: see triage record Last Menstrual Period: 04/06/18 Reviewed Nursing Documentation: PMH: Agreed; PSxH: Agreed Nursing Documentation-PMH Past Medical History: No History, Except For Hx Cancer: No Hx Gastrointestinal Problems: Yes Hx Neurological Problems: Yes Hx Vertigo: Yes Review of Systems All Other Systems: negative except mentioned in HPI Physical Exam Vital Signs Date Time Temp Pulse Resp B/P (MAP) Pulse Ox O2 Delivery O2 Flow Rate FiO2 04/11/18 17:39 97.9 105 18 156/96 100 Room Air 97.9 Sp02 EP Interpretation: reviewed, normal General Appearance: no apparent distress, alert, non-toxic Head: normocephalic Eyes: bilateral eye normal inspection, bilateral eye PERRL, bilateral eye EOMI ENT: normal ENT inspection, hearing grossly normal, normal pharynx, no angioedema, normal voice, moist mucus membranes, other - no thrush, no oral rashes, sloughing edema, gingival irritation or any other abnormalities but tongue slightly pale; +torus palatini Neck: normal inspection, full range of motion, supple, supple/symm/no masses Respiratory: chest non-tender, lungs clear, normal breath sounds, chest symmetrical, palpation of chest normal Cardiovascular #1: normal peripheral pulses, regular rate, rhythm Cardiovascular #2: 2+ radial (R), 2+ radial (L) Gastrointestinal: normal inspection, non tender, soft, no mass, no guarding, no rebound Rectal: deferred Genitourinary: normal inspection, no CVA tenderness, adnexa normal, bladder normal, cervix normal, ext genitalia/vag normal, urethra normal, other - no genital candidiasis, sloughing, erythema, cmt, discharge, or any abnormalities, with RANDY Vizcaino at bedside Musculoskeletal: back normal, gait/station normal, normal range of motion, non- tender, no calf tenderness Neurologic: alert, responsive, retail account representative III-XII nml as tested, motor strength/tone normal, sensory intact, speech normal Psychiatric: judgement/insight normal, mood/affect normal Skin: normal color, warm/dry, normal turgor, rash - Few small patches Of erythema and tiny papules over posterior scalp, antecubital fossa, no plaques, no raised areas, no masses, no wheals Lymphatic: no adenopathy Medical Decision Making Diagnostic Impression: Primary Impression: Encounter for generalized patient complaints Additional Impression: Rash and nonspecific skin eruption ER Course patient with multiple chronic complaints, nonspecific rash, uti symptoms, abdominal cramps. Has been to [facility] and other hospitals for the same, sent by an urgent care today for our evaluation. exam shows a mild rash, possibly some type of atopic dermatitis, will treat with steroids, recommended patient get f/u with a cistern room working supervisor and obtain allergy testing as well. these are all long-standing complaints. no obvious allergens identified by my history- taking. wet prep showed clue cells, ua with uti vs. chronic colonization based on history. Will give rx for both, dc home with derm f/u recs. Last Vital Signs Date Time Temp Pulse Resp B/P (MAP) Pulse Ox O2 Delivery O2 Flow Rate FiO2 04/11/18 18:02 97.9 84 18 156/96 100 Room Air 97.9 Disposition: HOME, SELF-CARE Condition: Stable RAJENDRA DELEON M.D Apr 11, 2018 18:26
[2018-04-11 19:11] LABS: APPEARANCE,URINE CLEAR; BILIRUBIN, URINE NEGATIVE (NEGATIVE); COLOR,URINE PALE YELLOW; GLUCOSE, URINE (UA) NEGATIVE (NEGATIVE); KETONES,URINE NEGATIVE (NEGATIVE); LEUKOCYTE ESTERASE ,URINE NEGATIVE (NEGATIVE); NITRITE,URINE POSITIVE (NEGATIVE); PH,URINE 7 (4.5-8.0); PROTEIN,URINE NEGATIVE (NEGATIVE); UROBILINOGEN,URINE NORMAL MG/DL (0.0-1.0)
[2018-04-11 19:20] LABS: BASOPHILS % (AUTO) 1.6 % (0.0-2.0); EOSINOPHILS % (AUTO) 1.5 % (0.0-3.0); HEMATOCRIT 39.2 % (37.0-47.0); HEMOGLOBIN 13.7 G/DL (12.0-16.0); LYMPHOCYTES % (AUTO) 41.4 % (20.0-45.0); MEAN CORPUSCULAR VOLUME 88 FL (80-99); MONOCYTES % (AUTO) 9.1 % (1.0-10.0); NEUTROPHILS % (AUTO) 46.4 % (45.0-75.0); PLATELET COUNT 293 K/UL (150-450); RED BLOOD COUNT 4.47 M/UL (4.20-5.40); RED CELL DISTRIBUTION WIDTH 11.5 % (11.6-14.8); WHITE BLOOD COUNT 6.7 K/UL (4.8-10.8)
[2018-04-11 19:31] LABS: ANION GAP 6 mmol/L (5-15); BLOOD UREA NITROGEN 11 mg/dL (7-18); CALCIUM 9.3 MG/DL (8.5-10.1); CARBON DIOXIDE 31 MMOL/L (21-32); CHLORIDE 103 MMOL/L (98-107); CREATININE 0.9 MG/DL (0.55-1.30); POTASSIUM 4.3 MMOL/L (3.5-5.1); SODIUM 140 MMOL/L (136-145)
[2018-04-11 19:35] LABS: ALANINE AMINOTRANSFERASE 24 U/L (12-78); ALBUMIN 3.9 G/DL (3.4-5.0); ALBUMIN/GLOBULIN RATIO 1.1 (1.0-2.7); ALKALINE PHOSPHATASE 62 U/L (46-116); ASPARTATE AMINO TRANSFERASE 17 U/L (15-37); BILIRUBIN,TOTAL 0.3 MG/DL (0.2-1.0)
[2018-04-11 20:02] VITALS: BP 145/90
[2018-04-11] MEDS ORDERED: PREDNISONE20 MG ORAL (21:07)
[2018-04-11] MEDS ORDERED: METRONIDAZOLE500 MG ORAL (21:07)
[2018-04-11] MEDS ORDERED: CIPROFLOXACIN500 M2 ORAL (21:07)
[2018-04-11 21:29] VITALS: BP 145/90
== END 2018-04-11 21:24 | disposition home or self-care (01) ==
LOC: EMR 20:01
DX: R21 Rash and other nonspecific skin eruption (principal); R30.0 Dysuria
CPT/HCPCS: 36415; 80053; 81003; 81025; 83690; 85025; 87086; 87210; 87491; 87590; 99283; J7512

== ENCOUNTER 2019-05-09 02:21 | Emergency (ER) | payer SELFPAY ==
[~2019-05-09] VITALS: Ht 170.2 cm; Wt 61.2 kg
[~2019-05-09 02:21] MED LIST changes: +CIPROFLOXACIN500 M2 ORAL; +PREDNISONE20 MG ORAL
[2019-05-09 02:31] VITALS: BP 138/92
--- NOTE | 2019-05-09 02:31 | NUR ---
ED Nurse Note: PT AMBULATED TO ED C/O BUG BITES ON HER NECK AND LEGS X 1 DAY
--- NOTE | 2019-05-09 02:42 | Emergency Room Report ---
History of Present Illness General Chief Complaint: Skin Rash/Abscess Source: Patient Present Illness [facility] This a 48-year-old female with history of multidrug-resistant UTI. She presents with increased urination and her odor to her urine. Onset for last couple days. No fever chills but no nausea no vomiting. Slight discharge. Second complaint is rash and itching. Onset today. 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 Last month she did the same thing and the same thing happened. She noticed that this person has no she is tender in bed. All of her closer aches. Patient said that she has some issues with the health department. This is itching. Allergies: Coded Allergies: No Known Allergies (Unverified , 03/16/16) Patient History Past Medical History: see triage record, old chart reviewed Past Surgical History: none Pertinent Family History: none Social History: Denies: smoking Last Menstrual Period: 04/21/19 Now: No Immunizations: other Reviewed Nursing Documentation: PMH: Agreed; PSxH: Agreed Nursing Documentation-PMH Past Medical History: No Stated History Hx Cancer: No Hx Gastrointestinal Problems: Yes Hx Neurological Problems: Yes Hx Vertigo: Yes Review of Systems Eye: Denies: eye pain, blurred vision ENT: Denies: ear pain, nose congestion, throat swelling Respiratory: Denies: cough, shortness of breath Cardiovascular: Denies: chest pain, palpitations Gastrointestinal: Denies: abdominal pain, diarrhea, nausea, vomiting Genitourinary: Reports: frequency Musculoskeletal: Denies: back pain, joint pain Skin: Reports: rash Neurological: Denies: headache, numbness Endocrine: Denies: increased thirst, increased urine Hematologic/Lymphatic: Denies: easy bruising All Other Systems: negative except mentioned in HPI Physical Exam Vital Signs Date Time Temp Pulse Resp B/P (MAP) Pulse Ox O2 Delivery O2 Flow Rate FiO2 05/09/19 02:31 98.8 98 18 138/92 (107) 100 Room Air Vitals normal Sp02 EP Interpretation: reviewed, normal General Appearance: well appearing, no apparent distress, alert Head: normocephalic, atraumatic Eyes: bilateral eye PERRL, bilateral eye EOMI ENT: hearing grossly normal, normal pharynx Neck: full range of motion, supple, no meningismus Respiratory: chest non-tender, lungs clear, normal breath sounds Cardiovascular #1: regular rate, rhythm, no murmur Gastrointestinal: normal bowel sounds, non tender, no mass, no organomegaly, no bruit, non-distended Musculoskeletal: back normal, gait/station normal, normal range of motion Psychiatric: mood/affect normal Medical Decision Making Diagnostic Impression: Primary Impression: UTI (urinary tract infection) Qualified Codes: N30.00 - Acute cystitis without hematuria Additional Impression: Rash and other nonspecific skin eruption ER Course She presents with UTI. 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 Sensitive to Macrobid. Her rash may be contact dermatitis versus delusional parasitosis. Will cover for possible cellulitis. Does not look like scabies. Will discharge home. Last Vital Signs Date Time Temp Pulse Resp B/P (MAP) Pulse Ox O2 Delivery O2 Flow Rate FiO2 05/09/19 02:31 98.8 98 18 138/92 (107) 100 Room Air Status: improved Disposition: HOME, SELF-CARE Condition: Stable Scripts Nitrofurantoin Monohyd/M-Cryst (Nitrofurantoin [place]-Mcr 100 mg) 100 Mg Capsule 100 MG ORAL Q12H, #14 CAP Prov: Maurizio Victoria MD 05/09/19 Doxycycline Monohydrate* (DOXYCYCLINE MONOHYDRATE*) 100 Mg Capsule 100 MG ORAL Q12H, #14 CAP 0 Refills Prov: Maurizio Victoria MD 05/09/19 Additional Instructions: Follow up with your doctor in 7 days. Return if worse. Maurizio Victoria MD May 09, 2019 02:42
--- NOTE | 2019-05-09 02:50 | NUR ---
ED Nurse Note: URINE SPECIMEN SENT TO LAB
[2019-05-09 03:03] LABS: BILIRUBIN, URINE NEGATIVE (NEGATIVE); GLUCOSE, URINE (UA) NEGATIVE (NEGATIVE); KETONES,URINE NEGATIVE (NEGATIVE); LEUKOCYTE ESTERASE ,URINE 2+ (NEGATIVE); NITRITE,URINE POSITIVE (NEGATIVE); PH,URINE 7 (4.5-8.0); PROTEIN,URINE 1+ (NEGATIVE); UROBILINOGEN,URINE NORMAL MG/DL (0.0-1.0)
[2019-05-09 03:08] LABS: APPEARANCE,URINE CLOUDY; COLOR,URINE YELLOW
[2019-05-09] MEDS ORDERED: MACROBID100 MG ORAL (03:15)
[2019-05-09] MEDS ORDERED: DOXYCYCLINE MO100 MG ORAL (03:15)
[2019-05-09 03:20] VITALS: BP 121/89
--- NOTE | 2019-05-09 03:20 | NUR ---
ER DISCHARGE NOTE: Patient is cleared to be discharged per ERMD, pt is aox4, on room air, with stable vital signs. pt was given dc and prescription instructions, pt was able to verbalize understanding, pt id band removed. pt is able to ambulate with steady gait. pt took all belongings.
== END 2019-05-09 03:20 | disposition home or self-care (01) ==
LOC: EMR 02:54
DX: N30.00 Acute cystitis without hematuria (principal); R21 Rash and other nonspecific skin eruption
CPT/HCPCS: 81003; 87086; 87181; 99283

== ENCOUNTER 2019-05-31 21:37 | Inpatient (IN) | payer MEDICAID ==
[~2019-05-31] VITALS: Ht 170.2 cm; Wt 56.7 kg
[~2019-05-31 21:37] MED LIST changes: +DOXYCYCLINE MO100 MG ORAL; +MACROBID100 MG ORAL
--- NOTE | 2019-05-31 21:55 | NUR ---
ED Nurse Note: pt walked into ED C/O generalized weakness and nausea for the last 2 days since she started taking ABx of macrobid and doxycycline for her UTI. Pt is alertx4.
[2019-05-31 21:56] VITALS: BP 132/86
--- NOTE | 2019-05-31 22:08 | Emergency Room Report ---
History of Present Illness General Chief Complaint: Generalized Weakness Source: Patient Present Illness HPI Patient presents with complaints of general weakness reports that she was recently on antibiotics for a bladder infection And soon after starting the medicine she started to feel more weak Diffuse body aches as well patient feels that the acne on her face is worsening Denies any vomiting or diarrhea denies any recent travel denies any neck pain or photophobia Allergies: Coded Allergies: No Known Allergies (Unverified , 03/16/16) Patient History Past Medical History: see triage record Last Menstrual Period: n/a Now: No Reviewed Nursing Documentation: PMH: Agreed; PSxH: Agreed Nursing Documentation-PMH Past Medical History: No History, Except For Hx Cancer: No Hx Gastrointestinal Problems: Yes Hx Neurological Problems: Yes Hx Vertigo: Yes Review of Systems All Other Systems: negative except mentioned in HPI Physical Exam Vital Signs Date Time Temp Pulse Resp B/P (MAP) Pulse Ox O2 Delivery O2 Flow Rate FiO2 05/31/19 21:48 99.0 115 18 145/86 (105) 98 Room Air 05/31/19 21:56 98 Sp02 EP Interpretation: reviewed, normal General Appearance: well appearing, no apparent distress Head: normocephalic, atraumatic Eyes: bilateral eye PERRL, bilateral eye EOMI ENT: hearing grossly normal, normal pharynx Neck: supple Respiratory: lungs clear Cardiovascular #1: regular rate, rhythm Gastrointestinal: non tender, soft Genitourinary: no CVA tenderness Musculoskeletal: normal inspection Neurologic: alert, oriented x3, responsive Psychiatric: normal inspection Skin: other - Appearance of acne in the lower facial region, also brownish discoloration appears to be chronic on the upper maxilla and upper lip area Lymphatic: no adenopathy Medical Decision Making Diagnostic Impression: Primary Impression: Sepsis ER Course Multiple differentials including but not limited to pneumonia, appendicitis, viral pathology entertained Patient's white blood cell count is elevated With this further extensive search is made for infectious pathology lactic acid was normal CT abdomen pelvis does not show any acute disease CT of the chest revealed some pulmonary edema Urine sample is otherwise clear Patient initiated on broad-spectrum antibiotics given the abnormal lung findings and requires close follow-up Labs Test 05/31/19 22:18 05/31/19 23:26 06/01/19 01:23 White Blood Count 23.6 K/UL (4.8-10.8) 19.2 K/UL (4.8-10.8) Red Blood Count 4.45 M/UL (4.20-5.40) 4.06 M/UL (4.20-5.40) Hemoglobin 13.7 G/DL (12.0-16.0) 12.4 G/DL (12.0-16.0) Hematocrit 38.7 % (37.0-47.0) 36.8 % (37.0-47.0) Mean Corpuscular Volume 87 FL (80-99) 91 FL (80-99) Mean Corpuscular Hemoglobin 30.8 PG (27.0-31.0) 30.6 PG (27.0-31.0) Mean Corpuscular Hemoglobin Concent 35.5 G/DL (32.0-36.0) 33.7 G/DL (32.0-36.0) Red Cell Distribution Width 11.3 % (11.6-14.8) 12.3 % (11.6-14.8) Platelet Count 287 K/UL (150-450) 208 K/UL (150-450) Mean Platelet Volume 4.9 FL (6.5-10.1) 5.0 FL (6.5-10.1) Neutrophils (%) (Auto) % (45.0-75.0) % (45.0-75.0) Lymphocytes (%) (Auto) % (20.0-45.0) % (20.0-45.0) Monocytes (%) (Auto) % (1.0-10.0) % (1.0-10.0) Eosinophils (%) (Auto) % (0.0-3.0) % (0.0-3.0) Basophils (%) (Auto) % (0.0-2.0) % (0.0-2.0) Differential Total Cells Counted 100 100 Neutrophils % (Manual) 85 % (45-75) 87 % (45-75) Lymphocytes % (Manual) 9 % (20-45) 8 % (20-45) Monocytes % (Manual) 5 % (1-10) 5 % (1-10) Eosinophils % (Manual) 0 % (0-3) 0 % (0-3) Basophils % (Manual) 0 % (0-2) 0 % (0-2) Band Neutrophils 1 % (0-8) 0 % (0-8) Platelet Estimate Adequate Adequate Platelet Morphology Normal Normal Red Blood Cell Morphology Normal Urine Color Pale yellow Urine Appearance Cloudy Urine pH 9 (4.5-8.0) Urine Specific [place] 1.015 (1.005-1.035) Urine Protein Negative (NEGATIVE) Urine Glucose (UA) Negative (NEGATIVE) Urine Ketones Negative (NEGATIVE) Urine Blood Negative (NEGATIVE) Urine Nitrite Negative (NEGATIVE) Urine Bilirubin Negative (NEGATIVE) Urine Urobilinogen Normal MG/DL (0.0-1.0) Urine Leukocyte Esterase Negative (NEGATIVE) Urine HCG, Qualitative Negative (NEGATIVE) Sodium Level 137 MMOL/L (136-145) Potassium Level 4.3 MMOL/L (3.5-5.1) Chloride Level 104 MMOL/L (98-107) Carbon Dioxide Level 26 MMOL/L (21-32) Anion Gap 7 mmol/L (5-15) Blood Urea Nitrogen 9 mg/dL (7-18) Creatinine 1.0 MG/DL (0.55-1.30) Estimat Glomerular Filtration Rate 59.2 mL/min (>60) Glucose Level 98 MG/DL (74-106) Calcium Level 9.7 MG/DL (8.5-10.1) Total Bilirubin 0.7 MG/DL (0.2-1.0) Aspartate Amino Transf (AST/SGOT) 20 U/L (15-37) Alanine Aminotransferase (ALT/SGPT) 22 U/L (12-78) Alkaline Phosphatase 60 U/L (46-116) Total Protein 7.1 G/DL (6.4-8.2) Albumin 3.5 G/DL (3.4-5.0) Globulin 3.6 g/dL Albumin/Globulin Ratio 1.0 (1.0-2.7) Lipase 179 U/L (73-393) Urine Opiates Screen Negative (NEGATIVE) Urine Barbiturates Screen Negative (NEGATIVE) Phencyclidine (PCP) Screen Negative (NEGATIVE) Urine Amphetamines Screen Negative (NEGATIVE) Urine Benzodiazepines Screen Negative (NEGATIVE) Urine Cocaine Screen Negative (NEGATIVE) Urine Marijuana (THC) Screen Negative (NEGATIVE) Lactic Acid Level 1.00 mmol/L (0.4-2.0) Rhythm Strip Diag. Results EP Interpretation: yes Rate: 87 Rhythm: NSR, no PVC's, no ectopy Chest X-Ray Diagnostic Results Chest X-Ray Diagnostic Results : Chest X-Ray Ordered: Yes # of Views/Limited/Complete: 1 View Indication: Chest Pain EP Interpretation: Yes Interpretation: no consolidation, no effusion, no pneumothorax Impression: No acute disease Electronically Signed by: Calos Kim DO CT/MRI/US Diagnostic Results CT/MRI/US Diagnostic Results : Impression CT chest: Pulmonary edema no other finding CT abdomen pelvis appendix normal no obvious acute pathology Last Vital Signs Date Time Temp Pulse Resp B/P (MAP) Pulse Ox O2 Delivery O2 Flow Rate FiO2 05/31/19 21:56 111 15 Room Air 98 05/31/19 21:56 99.0 132/86 98 Status: improved Disposition: ADMITTED INPATIENT Condition: Serious Calos Kim DO May 31, 2019 22:08
[2019-05-31] MEDS ORDERED: Ketorolac 30mg Inj IV ONE (22:15)
[2019-05-31 22:34] LABS: APPEARANCE,URINE CLOUDY; BILIRUBIN, URINE NEGATIVE (NEGATIVE); COLOR,URINE PALE YELLOW; GLUCOSE, URINE (UA) NEGATIVE (NEGATIVE); KETONES,URINE NEGATIVE (NEGATIVE); LEUKOCYTE ESTERASE ,URINE NEGATIVE (NEGATIVE); NITRITE,URINE NEGATIVE (NEGATIVE); PH,URINE 9 (4.5-8.0); PROTEIN,URINE NEGATIVE (NEGATIVE); UROBILINOGEN,URINE NORMAL MG/DL (0.0-1.0)
[2019-05-31 22:35] LABS: HEMATOCRIT 38.7 % (37.0-47.0); HEMOGLOBIN 13.7 G/DL (12.0-16.0); MEAN CORPUSCULAR VOLUME 87 FL (80-99); PLATELET COUNT 287 K/UL (150-450); RED BLOOD COUNT 4.45 M/UL (4.20-5.40); RED CELL DISTRIBUTION WIDTH 11.3 % (11.6-14.8)
[2019-05-31 22:38] LABS: WHITE BLOOD COUNT 23.6 K/UL (4.8-10.8)
[2019-05-31 22:48] LABS: ANION GAP 7 mmol/L (5-15); BLOOD UREA NITROGEN 9 mg/dL (7-18); CALCIUM 9.7 MG/DL (8.5-10.1); CARBON DIOXIDE 26 MMOL/L (21-32); CHLORIDE 104 MMOL/L (98-107); POTASSIUM 4.3 MMOL/L (3.5-5.1); SODIUM 137 MMOL/L (136-145)
[2019-05-31 22:56] LABS: ALANINE AMINOTRANSFERASE 22 U/L (12-78); ALBUMIN 3.5 G/DL (3.4-5.0); ALKALINE PHOSPHATASE 60 U/L (46-116); ASPARTATE AMINO TRANSFERASE 20 U/L (15-37); BILIRUBIN,TOTAL 0.7 MG/DL (0.2-1.0)
--- NOTE | 2019-05-31 23:38 | NUR ---
ED Nurse Note: pt in bed resting with eyes closed. VSS.
[2019-06-01] VITALS (7 sets, daily range): BP systolic 108–135; BP diastolic 67–81
[2019-06-01] MEDS ORDERED: Isovue-300 100ml vial INJ PRN
--- NOTE | 2019-06-01 00:09 | NUR ---
ED Nurse Note: pt wants his father Toño claros to be called at [phone] for any updates in the AM.
--- NOTE | 2019-06-01 00:36 | NUR ---
ED Nurse Note: pt left for CT scan
--- NOTE | 2019-06-01 01:16 | NUR ---
ED Nurse Note: returned back from CT scan
[2019-06-01 01:31] LABS: HEMATOCRIT 36.8 % (37.0-47.0); HEMOGLOBIN 12.4 G/DL (12.0-16.0); MEAN CORPUSCULAR VOLUME 91 FL (80-99); PLATELET COUNT 208 K/UL (150-450); RED BLOOD COUNT 4.06 M/UL (4.20-5.40); RED CELL DISTRIBUTION WIDTH 12.3 % (11.6-14.8); WHITE BLOOD COUNT 19.2 K/UL (4.8-10.8)
--- NOTE | 2019-06-01 01:47 | NUR ---
ED Nurse Note: pt in bed resting with eyes closed VSS.
--- NOTE | 2019-06-01 01:48 | Diagnostic Imaging Report ---
Clinical Indication: Abdominal pain for one week Technique: No oral contrast utilized, per emergency room physician request IV administration nonionic contrast. Venous phase spiral acquisition obtained through the abdomen and pelvis. Multiplanar reconstructions were generated. Total dose length product 616.83 mGycm. CTDIvol(s) 12.1 mGy. Dose reduction achieved using automated exposure control Comparison: none Findings: The appendix is normal. There is no evidence of diverticulosis or diverticulitis. No small bowel distention. No free or loculated intraperitoneal gas is evident. There is trace free fluid in the pelvic cul-de-sac The distal esophagus, stomach, duodenum are unremarkable. The liver is unremarkable. The gallbladder is contracted, unremarkable. No biliary ductal dilatation. The pancreas, spleen, adrenals, right kidney are unremarkable. Left kidney demonstrates a 3 mm lower pole calyceal calculus. No or ureteral calculi, hydronephrosis, or hydroureter. There is a circumaortic left renal vein incidentally noted. No retroperitoneal or mesenteric mass or adenopathy. No pelvic mass or adenopathy. Normal uterus and ovaries. The included lung bases demonstrate interstitial septal thickening. There is a nodular opacity in the posterior medial left lower lobe that measures 6 mm in diameter, image 9 of series 5. There are posterior dependent atelectatic changes. The bones are unremarkable. Impression: Bilateral basilar pulmonary parenchymal interstitial septal thickening, nonspecific as regards etiology, could indicate interstitial edema No acute abdominal process Trace free pelvic fluid, most likely physiologic Nonobstructive 3 mm left lower pole calyceal calculus Other findings as noted, including posterior dependent pulmonary atelectatic changes, circumaortic left renal vein The above findings are in agreement with [facility] preliminary report 6 mm left lower lobe nodule. Recommend 12 month follow-up CT. This finding was phoned to patient's nurse at the time of interpretation The CT scanner at [facility] is accredited by the [employer] and the scans are performed using protocols designed to limit radiation exposure to as low as reasonably achievable to attain images of sufficient resolution adequate for diagnostic evaluation.
--- NOTE | 2019-06-01 02:25 | Diagnostic Imaging Report ---
Clinical Indication: Cough for one week Technique: Spiral acquisitions obtained through the chest. No IV contrast utilized, reason not stated. Multiplanar reconstructions generated. Total dose length product 469.09 mGycm. CTDIvol(s) 14.25 mGy. Dose reduction achieved using automated exposure control Comparison: 01/27/2017 Findings: There is diffuse bilateral centrilobular interstitial septal thickening, which is not evident previously. Previously demonstrated bilateral pleural effusions and resultant atelectatic changes are no longer evident. There is a 6 mm nodule at the left lung base, image 37 series 5 which is not evident previously, may have previously administered by atelectatic lung, however. No focal dense consolidation. There is some dependent atelectasis posteriorly at both lung bases. No mediastinal or hilar mass or adenopathy demonstrated. The heart size is normal. No pericardial effusion. The included portion of the thyroid is unremarkable. No axillary or chest wall mass or adenopathy. The bones are unremarkable. Please refer to separate abdomen pelvis CT report for details of the upper abdominal anatomy Impression: Bilateral diffuse interstitial septal thickening, most likely on the basis of interstitial edema No dense consolidation demonstrated The above findings are in agreement with the [facility] preliminary report 6 mm left basilar lung nodule. Recommend 6-12 month short interval follow-up CT scan. This was not described on the [facility] preliminary report. This finding was phoned to patient's nurse at the time of interpretation The CT scanner at [facility] is accredited by the [employer] and the scans are performed using protocols designed to limit radiation exposure to as low as reasonably achievable to attain images of sufficient resolution adequate for diagnostic evaluation.
--- NOTE | 2019-06-01 03:12 | NUR ---
NURSE NOTES: Received telephone report from RANDY Wynne (ED). Per RN, will do pt inventory then will send pt up.
--- NOTE | 2019-06-01 03:29 | NUR ---
ER DISCHARGE NOTE: Pt was brought up to 311-2 via [place] [place] in stable condition. Report given to RANDY Jason. Belonging list signed.
--- NOTE | 2019-06-01 03:30 | NUR ---
NURSE NOTES: Received pt from ED via [facility]. VSS. A&ox4, in room air. No s/s of acute distress & c/o 7/10 generalized pain. Med recon done. Skin intact. IV site intact & Levaquin still infusing from ER. Pt belongings list signed & accounted for. Oriented to hospital facility. Pt able to ambulate. Called & left msg to Dr. Christian's exchange number for admission orders. Bed in lowest position, call light within reach. Will continue to monitor.
--- NOTE | 2019-06-01 04:45 | NUR ---
NURSE NOTES: Dr. Alonzo (on-call for Dr. Christian) called back with admission orders. Carried out.
[2019-06-01] MEDS ORDERED: HYDROcodone/Acetamin 5/325 tab ORAL PRN (05:00)
[2019-06-01] MEDS ORDERED: Morphine Sulfate 2mg/ml Inj(IV/IM USE ONLY) IVP PRN (05:00)
[2019-06-01 07:08] LABS: BASOPHILS % (AUTO) 0.3 % (0.0-2.0); EOSINOPHILS % (AUTO) 1.6 % (0.0-3.0); HEMATOCRIT 35.5 % (37.0-47.0); HEMOGLOBIN 12.1 G/DL (12.0-16.0); MEAN CORPUSCULAR VOLUME 89 FL (80-99); NEUTROPHILS % (AUTO) 81.2 % (45.0-75.0); PLATELET COUNT 248 K/UL (150-450); RED BLOOD COUNT 3.97 M/UL (4.20-5.40); RED CELL DISTRIBUTION WIDTH 11.9 % (11.6-14.8); WHITE BLOOD COUNT 14.2 K/UL (4.8-10.8)
--- NOTE | 2019-06-01 07:26 | NUR ---
HAND-OFF: Report given to Charge nurseMila. Dugan in stable condition. SBAR copy given to charge nurse.
--- NOTE | 2019-06-01 07:30 | NUR ---
NURSE NOTES: Written report received from Casie PADILLA. Rounds made. Patient sleeping in supine position, in bed, awakes to name. No distress on RA, no cough, wheeze noted to bilateral lung sounds with auscultation. Right wrist heplock intact, site asymptomatic. Will apply SCDs. No edema noted. Skin intact. Call light in reach, bed in lowest position, will continue to monitor.
--- NOTE | 2019-06-01 10:06 | NUR ---
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 CT ABD PELVIS W/ CONT: Trace interstitial edema at the lung bases IS: NS 1000ML IV x 3 TORADOL 30MG IV LEVAQUIN 750MG IVPB Admitted to [facility] status DCP: Pending Hospital Stay
--- NOTE | 2019-06-01 11:00 | NUR ---
NURSE NOTES: Updated patient and mother on new orders for stool specimen collection, verbalized understanding, all supplies provided, signs posted at door and bathroom. Will continue to monitor.
--- NOTE | 2019-06-01 11:02 | History and Physical ---
History of Present Illness General Date patient seen: Jun 01, 2019 Reason for Hospitalization: Generalized Weakness Present Illness HPI HPI: 48-year-old female past medical history of UTI, PID, presents with generalized weakness, muscle aches. Patient had initial work-up in ED and was not found to have a source of sepsis with elevated white count. UA negative, chest x-ray negative. At interview patient denies any cough, sore throat, abdominal pain, nausea, vomiting, dysuria, vaginal discharge, ear pain. Upon further discussion patient admits to having been exposed to bug bites a month ago. Patient also complains of joint pains and rash. Patient admits to having prior episodes of feeling the same where she develops generalized malaise weakness and a flare of rash. Patient is noted to have malar rash was asked about prior history of lupus. Per patient, she has been tested for lupus, Lyme disease and other autoimmune diseases that have been found to be negative. Patient denies any family history of lupus or any other autoimmune diseases. Past medical history: As above Medications: None Allergies: None Family history: As above, denies family history of autoimmune diseases Past social history: Denies EtOH, drug abuse. Admits to smoking 1 pack/week. ROS: As stated above. Aside from HPI all other review of systems are negative including more than 12 systems. Allergies: Coded Allergies: No Known Allergies (Unverified , 03/16/16) Medication History Scheduled Doxycycline Monohydrate* (Doxycycline Monohydrate*), 100 MG ORAL Q12H Nitrofurantoin Monohyd/M-Cryst (Nitrofurantoin [place]-Mcr 100 mg), 100 MG ORAL Q12H Discontinued Medications Ciprofloxacin Hcl* (Ciprofloxacin Hcl*), 250 MG ORAL Q12H Discontinued Reason: Pt stopped taking med Metronidazole* (Flagyl*), 500 MG ORAL THREE TIMES A DAY Discontinued Reason: Pt stopped taking med Prednisone* (Prednisone*), 40 MG ORAL DAILY Discontinued Reason: Pt stopped taking med Patient History Healthcare decision maker Resuscitation status Full Code Advanced Directive on File No Physical Exam Last 24 Hour Vital Signs Date Time Temp Pulse Resp B/P (MAP) Pulse Ox O2 Delivery O2 Flow Rate FiO2 06/01/19 04:42 Room Air 06/01/19 03:30 98.3 85 18 119/79 (92) 99 06/01/19 03:28 99.0 93 16 132/74 99 Room Air 98 06/01/19 01:44 98.2 92 18 130/72 99 Room Air 06/01/19 00:01 98.9 91 18 128/80 98 Room Air 05/31/19 21:56 111 15 Room Air 98 05/31/19 21:56 99.0 110 18 132/86 98 Room Air 05/31/19 21:48 99.0 115 18 145/86 (105) 98 Room Air Intake and Output 05/31/19 06/01/19 18:59 06:59 Intake Total 2760 ml Balance 2760 ml Intake Oral 60 ml IV Total 2700 ml # Voids 2 Laboratory Tests Test 05/31/19 22:18 05/31/19 23:26 06/01/19 01:23 06/01/19 07:00 White Blood Count 23.6 K/UL (4.8-10.8) *H 19.2 K/UL (4.8-10.8) H 14.2 K/UL (4.8-10.8) H Red Blood Count 4.45 M/UL (4.20-5.40) 4.06 M/UL (4.20-5.40) L 3.97 M/UL (4.20-5.40) L Hemoglobin 13.7 G/DL (12.0-16.0) 12.4 G/DL (12.0-16.0) 12.1 G/DL (12.0-16.0) Hematocrit 38.7 % (37.0-47.0) 36.8 % (37.0-47.0) L 35.5 % (37.0-47.0) L Mean Corpuscular Volume 87 FL (80-99) 91 FL (80-99) 89 FL (80-99) Mean Corpuscular Hemoglobin 30.8 PG (27.0-31.0) 30.6 PG (27.0-31.0) 30.5 PG (27.0-31.0) Mean Corpuscular Hemoglobin Concent 35.5 G/DL (32.0-36.0) 33.7 G/DL (32.0-36.0) 34.2 G/DL (32.0-36.0) Red Cell Distribution Width 11.3 % (11.6-14.8) L 12.3 % (11.6-14.8) 11.9 % (11.6-14.8) Platelet Count 287 K/UL (150-450) 208 K/UL (150-450) 248 K/UL (150-450) Mean Platelet Volume 4.9 FL (6.5-10.1) L 5.0 FL (6.5-10.1) L 5.3 FL (6.5-10.1) L Neutrophils (%) (Auto) % (45.0-75.0) % (45.0-75.0) 81.2 % (45.0-75.0) H Lymphocytes (%) (Auto) % (20.0-45.0) % (20.0-45.0) 13.0 % (20.0-45.0) L Monocytes (%) (Auto) % (1.0-10.0) % (1.0-10.0) 4.0 % (1.0-10.0) Eosinophils (%) (Auto) % (0.0-3.0) % (0.0-3.0) 1.6 % (0.0-3.0) Basophils (%) (Auto) % (0.0-2.0) % (0.0-2.0) 0.3 % (0.0-2.0) Differential Total Cells Counted 100 100 Neutrophils % (Manual) 85 % (45-75) H 87 % (45-75) H Lymphocytes % (Manual) 9 % (20-45) L 8 % (20-45) L Monocytes % (Manual) 5 % (1-10) 5 % (1-10) Eosinophils % (Manual) 0 % (0-3) 0 % (0-3) Basophils % (Manual) 0 % (0-2) 0 % (0-2) Band Neutrophils 1 % (0-8) 0 % (0-8) Platelet Estimate Adequate Adequate Platelet Morphology Normal Normal Red Blood Cell Morphology Normal Urine Color Pale yellow Urine Appearance Cloudy Urine pH 9 (4.5-8.0) Urine Specific [place] 1.015 (1.005-1.035) Urine Protein Negative (NEGATIVE) Urine Glucose (UA) Negative (NEGATIVE) Urine Ketones Negative (NEGATIVE) Urine Blood Negative (NEGATIVE) Urine Nitrite Negative (NEGATIVE) Urine Bilirubin Negative (NEGATIVE) Urine Urobilinogen Normal MG/DL (0.0-1.0) Urine Leukocyte Esterase Negative (NEGATIVE) Urine HCG, Qualitative Negative (NEGATIVE) Sodium Level 137 MMOL/L (136-145) Potassium Level 4.3 MMOL/L (3.5-5.1) Chloride Level 104 MMOL/L (98-107) Carbon Dioxide Level 26 MMOL/L (21-32) Anion Gap 7 mmol/L (5-15) Blood Urea Nitrogen 9 mg/dL (7-18) Creatinine 1.0 MG/DL (0.55-1.30) Estimat Glomerular Filtration Rate 59.2 mL/min (>60) Glucose Level 98 MG/DL (74-106) Calcium Level 9.7 MG/DL (8.5-10.1) Total Bilirubin 0.7 MG/DL (0.2-1.0) Aspartate Amino Transf (AST/SGOT) 20 U/L (15-37) Alanine Aminotransferase (ALT/SGPT) 22 U/L (12-78) Alkaline Phosphatase 60 U/L (46-116) Total Protein 7.1 G/DL (6.4-8.2) Albumin 3.5 G/DL (3.4-5.0) Globulin 3.6 g/dL Albumin/Globulin Ratio 1.0 (1.0-2.7) Lipase 179 U/L (73-393) Urine Opiates Screen Negative (NEGATIVE) Urine Barbiturates Screen Negative (NEGATIVE) Phencyclidine (PCP) Screen Negative (NEGATIVE) Urine Amphetamines Screen Negative (NEGATIVE) Urine Benzodiazepines Screen Negative (NEGATIVE) Urine Cocaine Screen Negative (NEGATIVE) Urine Marijuana (THC) Screen Negative (NEGATIVE) Lactic Acid Level 1.00 mmol/L (0.4-2.0) Height (Feet): 5 Height (Inches): 7.00 Weight (Pounds): 125 Medications Current Medications Medications (Trade) Dose Ordered Sig/Adriana Route PRN Reason Start Time Stop Time Status Last Admin Dose Admin Acetaminophen (Tylenol) 650 mg Q4H PRN ORAL Mild Pain/Temp > 100.5 06/01/19 05:00 07/01/19 04:59 06/01/19 10:52 Acetaminophen/ Hydrocodone Bitart ([place] 5/325) 1 tab Q4H PRN ORAL Moderate Pain (Pain Scale 4-6) 06/01/19 05:00 06/08/19 04:59 Acetaminophen/ Hydrocodone Bitart ([place] 5/325) 2 tab Q4H PRN ORAL Severe Pain (Pain Scale 7-10) 06/01/19 05:00 06/08/19 04:59 Iopamidol (Isovue-300 100ml) 100 ml NOW PRN INJ Radiology Procedure 06/01/19 00:00 Levofloxacin 150 ml @ 100 mls/hr Q24H IVPB 06/02/19 03:00 06/09/19 02:59 Morphine Sulfate (Morphine Sulfate) 2 mg Q4H PRN IVP Severe breakthru pain 06/01/19 05:00 06/08/19 04:59 Ondansetron HCl (Zofran) 4 mg Q4H PRN IVP Nausea & Vomiting 06/01/19 05:00 07/01/19 04:59 Objective Narrative GENERAL: No acute distress, alert, appears unwell HEENT: NCAT, non-icteric eyes, pupils PERRLA, malar rash Neck: No cervical lymphadenopathy, trachea midline CV: Regular rate and rhythm, no murmurs rubs or gallops RESP: Clear to auscultation bilaterally, no wheezes/rhonchi/crackles EXT: Normal muscle tone, +5/5 muscle strength, no synovitis or pain/tenderness on palpation of muscles and joints NEURO: No obvious deficits, alert and oriented x3 Assessment/Plan Diagnosis [place] I: 48-year-old female past medical history of UTI, PID, presents with generalized weakness, muscle aches #Vague symptoms, generalized malaise, SIRS space DDX: Viral etiology versus PID, vs autoimmune versus infectious including rickettsial diseases -Pelvic exam -ID consult, appreciate recs -Chest x-ray: Negative -UA negative -No open wounds -Titers per ID such as Lyme disease -Rheumatology consult -ARNOL, lupus Sjogren's work-up -abx per ID -Supportive care - CT a/p: Bilateral diffuse interstitial septal thickening, most likely on the basis of interstitial edema #Acute leukocytosis -WBC 23.6-19 0.2-14.2 -Plan as per above #Lung nodule -Follow-up outpatient x-ray #Smoking history -Social work -Cessation education -Nicotine patch if amenable Advanced care planning discussion with patient. Time spent: 18 minutes. Patient would like to be code The time of my note may not reflect the time of my patient encounter. Seizures prior charts reviewed including labs, notes, imaging, and interpretation spending more than 38 minutes on review. Patient wet mount negative for trichomonas, was negative for gonorrhea chlamydia, CT abdomen pelvis negative, UA positive. Hilary Dawson DO Jun 01, 2019 11:02
--- NOTE | 2019-06-01 11:56 | Diagnostic Imaging Report ---
Indication: Chest pain for one day Technique: One view of the chest Comparison: 01/26/2017 Findings: Bilateral interstitial edema appears similar to the previous exam. No focal airspace consolidation. No effusions. The heart size is normal. Impression: Bilateral interstitial edema, similar to that seen on prior study of 01/26/2017
--- NOTE | 2019-06-01 12:07 | Infectious Diseases Prog Note ---
Assessment/Plan Assessment/Plan Full consult dictated: A) 1) possible sepsis, leukocytosis, weakness, aches 2) ? source 3) pmh o/w neg 4) allergies - nkda P) 1) levofloxacin and flagyl 2) check cultures 3) monitor labs 4) thank you Subjective Allergies: Coded Allergies: No Known Allergies (Unverified , 03/16/16) Objective Vital Signs Last 24 Hour Vital Signs Date Time Temp Pulse Resp B/P (MAP) Pulse Ox O2 Delivery O2 Flow Rate FiO2 06/01/19 08:00 97.7 72 20 127/78 (94) 96 06/01/19 04:42 Room Air 06/01/19 03:30 98.3 85 18 119/79 (92) 99 06/01/19 03:28 99.0 93 16 132/74 99 Room Air 98 06/01/19 01:44 98.2 92 18 130/72 99 Room Air 06/01/19 00:01 98.9 91 18 128/80 98 Room Air 05/31/19 21:56 111 15 Room Air 98 05/31/19 21:56 99.0 110 18 132/86 98 Room Air 05/31/19 21:48 99.0 115 18 145/86 (105) 98 Room Air Height (Feet): 5 Height (Inches): 7.00 Weight (Pounds): 125 Laboratory Tests Test 05/31/19 22:18 05/31/19 23:26 06/01/19 01:23 06/01/19 07:00 White Blood Count 23.6 K/UL (4.8-10.8) *H 19.2 K/UL (4.8-10.8) H 14.2 K/UL (4.8-10.8) H Red Blood Count 4.45 M/UL (4.20-5.40) 4.06 M/UL (4.20-5.40) L 3.97 M/UL (4.20-5.40) L Hemoglobin 13.7 G/DL (12.0-16.0) 12.4 G/DL (12.0-16.0) 12.1 G/DL (12.0-16.0) Hematocrit 38.7 % (37.0-47.0) 36.8 % (37.0-47.0) L 35.5 % (37.0-47.0) L Mean Corpuscular Volume 87 FL (80-99) 91 FL (80-99) 89 FL (80-99) Mean Corpuscular Hemoglobin 30.8 PG (27.0-31.0) 30.6 PG (27.0-31.0) 30.5 PG (27.0-31.0) Mean Corpuscular Hemoglobin Concent 35.5 G/DL (32.0-36.0) 33.7 G/DL (32.0-36.0) 34.2 G/DL (32.0-36.0) Red Cell Distribution Width 11.3 % (11.6-14.8) L 12.3 % (11.6-14.8) 11.9 % (11.6-14.8) Platelet Count 287 K/UL (150-450) 208 K/UL (150-450) 248 K/UL (150-450) Mean Platelet Volume 4.9 FL (6.5-10.1) L 5.0 FL (6.5-10.1) L 5.3 FL (6.5-10.1) L Neutrophils (%) (Auto) % (45.0-75.0) % (45.0-75.0) 81.2 % (45.0-75.0) H Lymphocytes (%) (Auto) % (20.0-45.0) % (20.0-45.0) 13.0 % (20.0-45.0) L Monocytes (%) (Auto) % (1.0-10.0) % (1.0-10.0) 4.0 % (1.0-10.0) Eosinophils (%) (Auto) % (0.0-3.0) % (0.0-3.0) 1.6 % (0.0-3.0) Basophils (%) (Auto) % (0.0-2.0) % (0.0-2.0) 0.3 % (0.0-2.0) Differential Total Cells Counted 100 100 Neutrophils % (Manual) 85 % (45-75) H 87 % (45-75) H Lymphocytes % (Manual) 9 % (20-45) L 8 % (20-45) L Monocytes % (Manual) 5 % (1-10) 5 % (1-10) Eosinophils % (Manual) 0 % (0-3) 0 % (0-3) Basophils % (Manual) 0 % (0-2) 0 % (0-2) Band Neutrophils 1 % (0-8) 0 % (0-8) Platelet Estimate Adequate Adequate Platelet Morphology Normal Normal Red Blood Cell Morphology Normal Urine Color Pale yellow Urine Appearance Cloudy Urine pH 9 (4.5-8.0) Urine Specific [place] 1.015 (1.005-1.035) Urine Protein Negative (NEGATIVE) Urine Glucose (UA) Negative (NEGATIVE) Urine Ketones Negative (NEGATIVE) Urine Blood Negative (NEGATIVE) Urine Nitrite Negative (NEGATIVE) Urine Bilirubin Negative (NEGATIVE) Urine Urobilinogen Normal MG/DL (0.0-1.0) Urine Leukocyte Esterase Negative (NEGATIVE) Urine HCG, Qualitative Negative (NEGATIVE) Sodium Level 137 MMOL/L (136-145) Potassium Level 4.3 MMOL/L (3.5-5.1) Chloride Level 104 MMOL/L (98-107) Carbon Dioxide Level 26 MMOL/L (21-32) Anion Gap 7 mmol/L (5-15) Blood Urea Nitrogen 9 mg/dL (7-18) Creatinine 1.0 MG/DL (0.55-1.30) Estimat Glomerular Filtration Rate 59.2 mL/min (>60) Glucose Level 98 MG/DL (74-106) Calcium Level 9.7 MG/DL (8.5-10.1) Total Bilirubin 0.7 MG/DL (0.2-1.0) Aspartate Amino Transf (AST/SGOT) 20 U/L (15-37) Alanine Aminotransferase (ALT/SGPT) 22 U/L (12-78) Alkaline Phosphatase 60 U/L (46-116) Total Protein 7.1 G/DL (6.4-8.2) Albumin 3.5 G/DL (3.4-5.0) Globulin 3.6 g/dL Albumin/Globulin Ratio 1.0 (1.0-2.7) Lipase 179 U/L (73-393) Urine Opiates Screen Negative (NEGATIVE) Urine Barbiturates Screen Negative (NEGATIVE) Phencyclidine (PCP) Screen Negative (NEGATIVE) Urine Amphetamines Screen Negative (NEGATIVE) Urine Benzodiazepines Screen Negative (NEGATIVE) Urine Cocaine Screen Negative (NEGATIVE) Urine Marijuana (THC) Screen Negative (NEGATIVE) Lactic Acid Level 1.00 mmol/L (0.4-2.0) Current Medications Medications (Trade) Dose Ordered Sig/Adriana Route PRN Reason Start Time Stop Time Status Last Admin Dose Admin Acetaminophen (Tylenol) 650 mg Q4H PRN ORAL Mild Pain/Temp > 100.5 06/01/19 05:00 07/01/19 04:59 06/01/19 10:52 Acetaminophen/ Hydrocodone Bitart ([place] 5/325) 1 tab Q4H PRN ORAL Moderate Pain (Pain Scale 4-6) 06/01/19 05:00 06/08/19 04:59 Acetaminophen/ Hydrocodone Bitart ([place] 5/325) 2 tab Q4H PRN ORAL Severe Pain (Pain Scale 7-10) 06/01/19 05:00 06/08/19 04:59 Iopamidol (Isovue-300 100ml) 100 ml NOW PRN INJ Radiology Procedure 06/01/19 00:00 Levofloxacin 150 ml @ 100 mls/hr Q24H IVPB 06/02/19 03:00 06/09/19 02:59 Morphine Sulfate (Morphine Sulfate) 2 mg Q4H PRN IVP Severe breakthru pain 06/01/19 05:00 06/08/19 04:59 Ondansetron HCl (Zofran) 4 mg Q4H PRN IVP Nausea & Vomiting 06/01/19 05:00 07/01/19 04:59 Milagros Escalona MD Jun 01, 2019 12:07
--- NOTE | 2019-06-01 17:39 | NUR ---
CASE MANAGEMENT:NOTE INTERQUAL MET
--- NOTE | 2019-06-01 17:40 | NUR ---
NURSE NOTES: Message with CT of Abdomen/Pelvis results left for Dr. Dawson at this time. Awaiting call back.
--- NOTE | 2019-06-01 19:15 | NUR ---
HAND-OFF: Report given to Pablo PADILLA. Endorsed stool for C-diff is needed.
--- NOTE | 2019-06-01 19:30 | NUR ---
NURSE NOTES: Receive a report from RANDY Wilson. Round is done. Pt is lying in bed awake and alert. General body ache persist but manageable after Tylenol po medication. No coughing, no N/V noted. Breathing is even and non labored. On SCDs L/E bilaterally. IV site is on right wrist without infiltration. Pt is aware of collecting stool but no BM yet. Call light within reach. Will continue to monitor.
--- NOTE | 2019-06-01 21:45 | NUR ---
NURSE NOTES: Pt gets out of bed with family member, and ambulates via wheel chair. No dizziness/CONH noted. But still general body ache 04/19. Provide prn pain medication. Explain S/E of medication. No chilling or febrile sensation noted. Will continue to monitor.
[2019-06-02] VITALS: BP 107/63
--- NOTE | 2019-06-02 02:30 | Progress Note ---
DATE: 06/02/2019 SUBJECTIVE: The patient is calm, in no acute distress. Eating, able to answer the questions. No behavior issues. Denied any depressive or manic symptoms. Compliant with her medication. Nurses stated the patient has been cooperative and has not reported any suicidal ideation. No behavior issues. The patient was bizarre. MENTAL STATUS EXAMINATION: The patient is alert, oriented times self, place, and situation. Mood is neutral. Affect is blunted, congruent with mood. Thought process is linear and goal oriented. Thought content, no suicidal or homicidal ideations. ASSESSMENT: [place] I Anxiety disorder. [place] II Deferred. [place] III As above. [place] IV Low. [place] V 50. PLAN: 1. The patient will not be started on any psychotropic medications. 2. The patient is not an imminent danger to self or others. 3. The patient was provided with reality orientation and supportive therapy. Tyler Ibarra M.D. DR: BENSON JOB#: [id number] CC: FELIX
[2019-06-02 04:00] VITALS: BP 100/60
[2019-06-02] MEDS: HYDROcodone/Acetamin 5/325 tab ORAL PRN ×2 (05:14→10:33)
[2019-06-02 06:31] LABS: BASOPHILS % (AUTO) 0.8 % (0.0-2.0); EOSINOPHILS % (AUTO) 4.5 % (0.0-3.0); HEMATOCRIT 36.5 % (37.0-47.0); HEMOGLOBIN 12.2 G/DL (12.0-16.0); LYMPHOCYTES % (AUTO) 26.1 % (20.0-45.0); MEAN CORPUSCULAR VOLUME 92 FL (80-99); MONOCYTES % (AUTO) 10.8 % (1.0-10.0); NEUTROPHILS % (AUTO) 57.8 % (45.0-75.0); PLATELET COUNT 249 K/UL (150-450); RED BLOOD COUNT 3.96 M/UL (4.20-5.40); RED CELL DISTRIBUTION WIDTH 12.5 % (11.6-14.8); WHITE BLOOD COUNT 6.6 K/UL (4.8-10.8)
[2019-06-02 06:56] LABS: ALANINE AMINOTRANSFERASE 33 U/L (12-78); ALBUMIN 2.7 G/DL (3.4-5.0); ALBUMIN/GLOBULIN RATIO 0.8 (1.0-2.7); ALKALINE PHOSPHATASE 50 U/L (46-116); ANION GAP 8 mmol/L (5-15); ASPARTATE AMINO TRANSFERASE 28 U/L (15-37); BILIRUBIN,TOTAL 0.2 MG/DL (0.2-1.0); BLOOD UREA NITROGEN 10 mg/dL (7-18); CALCIUM 8.4 MG/DL (8.5-10.1); CARBON DIOXIDE 24 MMOL/L (21-32); CHLORIDE 109 MMOL/L (98-107); CREATININE 0.8 MG/DL (0.55-1.30); POTASSIUM 3.7 MMOL/L (3.5-5.1); SODIUM 141 MMOL/L (136-145)
--- NOTE | 2019-06-02 07:20 | NUR ---
NURSE NOTES: Report received from o RN, rounds made. Patient sleeping in semi-fowlers position in bed, awakens to name. No distress on RA. Denies need for pain medication at this time. Right wrist heplock intact. Bilateral SCDs off. Call light in reach, bed in lowest position, will continue to monitor.
--- NOTE | 2019-06-02 07:30 | NUR ---
HAND-OFF: Report given to RANDY Wilson. Round is done. Pt did not have bowel movement over night. Still pending for C-diff stool exam.
[2019-06-02 08:00] VITALS: BP 104/65
[2019-06-02] MEDS: Doxycycline Hyclate 100 MG in D5W 110 ML IV SCH ×2 (10:33→21:48)
[2019-06-02] MEDS ORDERED: Lidocaine 1% MPF 10mg/ml 5ml INJ SCH (11:00)
--- NOTE | 2019-06-02 11:35 | NUR ---
NURSE NOTES: Notified Dr. Dawson of Mg 1.5, no further orders at this time.
[2019-06-02 12:00] VITALS: BP 144/89
--- NOTE | 2019-06-02 12:06 | General Progress Note ---
Assessment/Plan Assessment/Plan: 48-year-old female past medical history of UTI, PID, presents with generalized weakness, muscle aches #Vague symptoms, generalized malaise, SIRS space DDX: Viral etiology versus PID, vs autoimmune versus infectious including rickettsial diseases #Sepsis secondary to GPC bacteremia -discharge noted on pelvic exam - f/u wet mount, gc chalmydia,culture - gpc on bxs, f/u identification and sensitivities -Repeat blood cultures -Check 2D echo -abx per ID: Change antibiotics to Flagyl, Vanco, doxy; s/p one dose ceftriaxone 250 mg IM -ID consult, appreciate recs -Chest x-ray: Negative -UA negative -No open wounds -Titers per ID such as Lyme disease -Rheumatology consult, not available -ARNOL, lupus Sjogren's work-up, pending -Supportive care - CT a/p: Bilateral diffuse interstitial septal thickening, most likely on the basis of interstitial edema #Acute leukocytosis, resolved -WBC 23.6-19 0.2-14.2 -Plan as per above #Lung nodule -Follow-up outpatient x-ray #Smoking history -Social work -Cessation education -Nicotine patch if amenable # FULL CODE The time of my note may not reflect the time of my patient encounter. Subjective Date patient seen: Jun 02, 2019 Allergies: Coded Allergies: No Known Allergies (Unverified , 03/16/16) Subjective Patient states her muscle aches have improved she denies joint pain. Admits to dry cough and pain with deep inspiration. Admits to lower abdominal pain. Denies dysuria or vaginal discharge. Objective Last 24 Hour Vital Signs Date Time Temp Pulse Resp B/P (MAP) Pulse Ox O2 Delivery O2 Flow Rate FiO2 06/02/19 08:00 98.0 74 18 104/65 (78) 97 06/02/19 04:00 98.2 80 20 100/60 (73) 95 06/02/19 00:00 98.3 73 20 107/63 (78) 99 06/01/19 21:00 Room Air 06/01/19 20:00 98.6 88 20 108/67 (81) 96 06/01/19 16:00 98.9 77 16 135/81 (99) 100 06/01/19 12:00 97.0 79 19 118/70 (86) 97 Intake and Output 06/01/19 06/02/19 18:59 06:59 Intake Total 953 ml 150 ml Balance 953 ml 150 ml Intake Oral 953 ml 150 ml # Voids 2 3 Laboratory Tests 06/02/19 05:40: White Blood Count 6.6#, Red Blood Count 3.96L, Hemoglobin 12.2, Hematocrit 36.5L , Mean Corpuscular Volume 92, Mean Corpuscular Hemoglobin 30.8, Mean Corpuscular Hemoglobin Concent 33.4, Red Cell Distribution Width 12.5, Platelet Count 249, Mean Platelet Volume 5.2L, Neutrophils (%) (Auto) 57.8, Lymphocytes ( %) (Auto) 26.1, Monocytes (%) (Auto) 10.8H, Eosinophils (%) (Auto) 4.5H, Basophils (%) (Auto) 0.8, Sodium Level 141, Potassium Level 3.7, Chloride Level 109H, Carbon Dioxide Level 24, Anion Gap 8, Blood Urea Nitrogen 10, Creatinine 0.8, Estimat Glomerular Filtration Rate > 60, Glucose Level 117H, Calcium Level 8.4L, Phosphorus Level 3.5, Magnesium Level 1.5L, Total Bilirubin 0.2, Aspartate Amino Transf (AST/SGOT) 28, Alanine Aminotransferase (ALT/SGPT) 33, Alkaline Phosphatase 50, Total Protein 6.0L, Albumin 2.7L, Globulin 3.3, Albumin /Globulin Ratio 0.8L, Anti-Nuclear Antibody Screen [Pending], Anti-Double Strand DNA Antibody [Pending], Complement C3 [Pending], Complement C4 [Pending] Height (Feet): 5 Height (Inches): 7.00 Weight (Pounds): 125 Objective GENERAL: No acute distress, appears comfortable, alert HEENT: NCAT, non-icteric eyes, pupils PERRLA Neck: No cervical lymphadenopathy, trachea midline CV: Regular rate and rhythm, no murmurs rubs or gallops RESP: Clear to auscultation bilaterally, no wheezes/rhonchi/crackles ABD: soft, non-distended, no TTP Pelvic exam, thin white discharge at introitus, cervix not visualized, sample sent for gonorrhea chlamydia wet mount and culture. No cervical motion tenderness no ovarian masses noted EXT: Normal muscle tone, +5/5 muscle strength NEURO: No obvious deficits, alert and oriented x3 Hilary Dawson DO Jun 02, 2019 12:06
--- NOTE | 2019-06-02 13:46 | Cardiology Report ---
APPROVED REPORT EXAM: Two-dimensional and M-mode echocardiogram with Doppler and color Doppler. INDICATION [place] M-Mode DIMENSIONS IVSd1.3 (0.7-1.1cm)Left Atrium (MM)3.3 (1.6-4.0cm) LVDd3.3 (3.5-5.6cm)Aortic Root2.9 (2.0-3.7cm) PWd0.8 (0.7-1.1cm)Aortic Cusp Exc.1.7 (1.5-2.0cm) LVDs1.4 (2.5-4.0cm) PWs1.7 cm Normal left ventricular chamber size, systolic function and wall motion. Left ventricular ejection fraction estimated to be 55 %. Mild left ventricular hypertrophy. No evidence of pericardial effusion. All other cardiac chamber sizes are within normal limits. Normal appearing aortic, mitral, pulmonic and tricuspid valves. Mitral annulus and aortic root calcification. IVC dilated at 2.6 cm with slight physiological collapse. No discrete vegetations seen. A color flow and spectral Doppler study was performed and revealed: No aortic regurgitation. Trace mitral regurgitation. Normal left ventricular diastolic function. Trace tricuspid regurgitation. Tricuspid systolic velocities suggests peak right ventricular systolic pressure of 28 mmHg. No pulmonic regurgitation present.
[2019-06-02] MEDS ORDERED: Vancomycin 1.5gm Premix q24h IVPB SCH (15:00)
[2019-06-02 16:00] VITALS: BP 154/85
--- NOTE | 2019-06-02 16:08 | NUR ---
CASE MANAGEMENT:REVIEW 06/02/19 SI: SEPSIS D/T BACTEREMIA. LUNG NODULE 97.7 86 20 144/89 99% ON RA MAG-1.5 IS: IV VANCOMYCIN Q12 IV DOXYCYCLINE Q12 IV FLAGYL Q8HRS IV LEVAQUIN Q24 NORCO PO Q4HRS PRN : MED/SURG STATUS 3EAST
--- NOTE | 2019-06-02 16:10 | Infectious Diseases Prog Note ---
Assessment/Plan Assessment/Plan Full consult dictated: A) 1) possible sepsis, leukocytosis, gram + bc, ? gonorrhea, ? chlamydia 2) ? source of + blood cultures 3) pmh o/w neg 4) allergies - nkda P) 1) vancomycin started, doxy pending chlamydia testing, ceftriaxone x 1 for gonorrhea tx 2) check cultures 3) monitor labs 4) d/w Dr. Dawson Subjective Allergies: Coded Allergies: No Known Allergies (Unverified , 03/16/16) Objective Vital Signs Last 24 Hour Vital Signs Date Time Temp Pulse Resp B/P (MAP) Pulse Ox O2 Delivery O2 Flow Rate FiO2 06/02/19 12:00 97.7 86 20 144/89 (107) 99 06/02/19 08:00 98.0 74 18 104/65 (78) 97 06/02/19 04:00 98.2 80 20 100/60 (73) 95 06/02/19 00:00 98.3 73 20 107/63 (78) 99 06/01/19 21:00 Room Air 06/01/19 20:00 98.6 88 20 108/67 (81) 96 Height (Feet): 5 Height (Inches): 7.00 Weight (Pounds): 125 Microbiology Date/Time Source Procedure Growth Status 05/31/19 23:45 Blood Blood Culture - Preliminary Resulted 05/31/19 23:30 Blood Blood Culture - Preliminary Resulted 06/02/19 11:00 Vaginal Wet Prep - Final Complete Laboratory Tests Test 06/02/19 05:40 White Blood Count 6.6 K/UL (4.8-10.8) # Red Blood Count 3.96 M/UL (4.20-5.40) L Hemoglobin 12.2 G/DL (12.0-16.0) Hematocrit 36.5 % (37.0-47.0) L Mean Corpuscular Volume 92 FL (80-99) Mean Corpuscular Hemoglobin 30.8 PG (27.0-31.0) Mean Corpuscular Hemoglobin Concent 33.4 G/DL (32.0-36.0) Red Cell Distribution Width 12.5 % (11.6-14.8) Platelet Count 249 K/UL (150-450) Mean Platelet Volume 5.2 FL (6.5-10.1) L Neutrophils (%) (Auto) 57.8 % (45.0-75.0) Lymphocytes (%) (Auto) 26.1 % (20.0-45.0) Monocytes (%) (Auto) 10.8 % (1.0-10.0) H Eosinophils (%) (Auto) 4.5 % (0.0-3.0) H Basophils (%) (Auto) 0.8 % (0.0-2.0) Sodium Level 141 MMOL/L (136-145) Potassium Level 3.7 MMOL/L (3.5-5.1) Chloride Level 109 MMOL/L (98-107) H Carbon Dioxide Level 24 MMOL/L (21-32) Anion Gap 8 mmol/L (5-15) Blood Urea Nitrogen 10 mg/dL (7-18) Creatinine 0.8 MG/DL (0.55-1.30) Estimat Glomerular Filtration Rate > 60 mL/min (>60) Glucose Level 117 MG/DL (74-106) H Calcium Level 8.4 MG/DL (8.5-10.1) L Phosphorus Level 3.5 MG/DL (2.5-4.9) Magnesium Level 1.5 MG/DL (1.8-2.4) L Total Bilirubin 0.2 MG/DL (0.2-1.0) Aspartate Amino Transf (AST/SGOT) 28 U/L (15-37) Alanine Aminotransferase (ALT/SGPT) 33 U/L (12-78) Alkaline Phosphatase 50 U/L (46-116) Total Protein 6.0 G/DL (6.4-8.2) L Albumin 2.7 G/DL (3.4-5.0) L Globulin 3.3 g/dL Albumin/Globulin Ratio 0.8 (1.0-2.7) L Anti-Nuclear Antibody Screen Pending Anti-Double Strand DNA Antibody Pending Complement C3 Pending Complement C4 Pending Current Medications Medications (Trade) Dose Ordered Sig/Adriana Route PRN Reason Start Time Stop Time Status Last Admin Dose Admin Acetaminophen (Tylenol) 650 mg Q4H PRN ORAL Mild Pain/Temp > 100.5 06/01/19 05:00 07/01/19 04:59 06/01/19 10:52 Acetaminophen/ Hydrocodone Bitart ([place] 5/325) 1 tab Q4H PRN ORAL Moderate Pain (Pain Scale 4-6) 06/01/19 05:00 06/08/19 04:59 06/02/19 10:33 Acetaminophen/ Hydrocodone Bitart ([place] 5/325) 2 tab Q4H PRN ORAL Severe Pain (Pain Scale 7-10) 06/01/19 05:00 06/08/19 04:59 06/01/19 21:54 Doxycycline Hyclate 100 mg/ Dextrose 110 ml @ 110 mls/hr Q12HR IV 06/02/19 10:00 06/09/19 09:59 06/02/19 10:33 Iopamidol (Isovue-300 100ml) 100 ml NOW PRN INJ Radiology Procedure 06/01/19 00:00 06/03/19 00:00 Morphine Sulfate (Morphine Sulfate) 2 mg Q4H PRN IVP Severe breakthru pain 06/01/19 05:00 06/08/19 04:59 Ondansetron HCl (Zofran) 4 mg Q4H PRN IVP Nausea & Vomiting 06/01/19 05:00 07/01/19 04:59 06/02/19 12:43 Vancomycin HCl (Vanco rx to dose) 1 ea DAILY PRN MISC Per rx protocol 06/02/19 11:45 07/02/19 11:44 Vancomycin HCl 750 mg/Dextrose 275 ml @ 183.333 mls/hr Q12H IVPB 06/03/19 03:00 06/08/19 02:59 Milagros Escalona MD Jun 02, 2019 16:09
--- NOTE | 2019-06-02 16:57 | Hematology/Onc Progress Note ---
Assessment/Plan Assessment/Plan ASSESSMENT AND RECS # Lung nodule left lower lobe approx 0.5cm --> f/u outpatient x-ray --> can get ct scan chest in 12 months --> given age and risk factors, low liklihood mlaignancy # Leukocytosis/elevated white blood cell count, unspecified likely related to sepsis --> have reviewed peripheral smear and bandemia/neutrophilia noted --> continue antibiotics if they have been started by ID team --> monitor for resolution # Generalized malaise --> due to infection # Sepsis secondary to GPC bacteremia --> ID is following, appreciate recs --> abx per ID # Smoking history The timing of this note does not necessarily reflect the time of the patient was seen. GREATLY APPRECIATE CONSULTATION. Subjective HEENT: Denies: no symptoms, eye pain, blurred vision, tearing, double vision, ear pain, ear discharge, nose pain, nose congestion, throat pain, throat swelling, mouth pain, mouth swelling, other Cardiovascular: Denies: no symptoms, chest pain, edema, irregular heart rate, lightheadedness, palpitations, syncope, other Respiratory: Denies: no symptoms, cough, shortness of breath, SOB with excertion, SOB at rest, sputum, wheezing, other Gastrointestinal/Abdominal: Denies: no symptoms, abdomen distended, abdominal pain, black stools, tarry stools, blood in stool, constipated, diarrhea, difficulty swallowing, nausea, poor appetite, poor fluid intake, rectal bleeding , vomiting, other Genitourinary: Denies: no symptoms, burning, discharge, frequency, flank pain, hematuria, incontinence, pain, urgency, other Neurologic/Psychiatric: Denies: no symptoms, anxiety, depressed, emotional problems, headache, numbness, paresthesia, pre-existing deficit, seizure, tingling, tremors, weakness, other Allergies: Coded Allergies: No Known Allergies (Unverified , 03/16/16) Subjective 06/02: no overnight events, cdiff pending, labs reviewed Objective Objective Current Medications Medications (Trade) Dose Ordered Sig/Adriana Route PRN Reason Start Time Stop Time Status Last Admin Dose Admin Acetaminophen (Tylenol) 650 mg Q4H PRN ORAL Mild Pain/Temp > 100.5 06/01/19 05:00 07/01/19 04:59 06/01/19 10:52 Acetaminophen/ Hydrocodone Bitart ([place] 5/325) 1 tab Q4H PRN ORAL Moderate Pain (Pain Scale 4-6) 06/01/19 05:00 06/08/19 04:59 06/02/19 10:33 Acetaminophen/ Hydrocodone Bitart ([place] 5/325) 2 tab Q4H PRN ORAL Severe Pain (Pain Scale 7-10) 06/01/19 05:00 06/08/19 04:59 06/01/19 21:54 Doxycycline Hyclate 100 mg/ Dextrose 110 ml @ 110 mls/hr Q12HR IV 06/02/19 10:00 06/09/19 09:59 06/02/19 10:33 Iopamidol (Isovue-300 100ml) 100 ml NOW PRN INJ Radiology Procedure 06/01/19 00:00 06/03/19 00:00 Morphine Sulfate (Morphine Sulfate) 2 mg Q4H PRN IVP Severe breakthru pain 06/01/19 05:00 06/08/19 04:59 Ondansetron HCl (Zofran) 4 mg Q4H PRN IVP Nausea & Vomiting 06/01/19 05:00 07/01/19 04:59 06/02/19 12:43 Vancomycin HCl (Vanco rx to dose) 1 ea DAILY PRN MISC Per rx protocol 06/02/19 11:45 07/02/19 11:44 Vancomycin HCl 750 mg/Dextrose 275 ml @ 183.333 mls/hr Q12H IVPB 06/03/19 03:00 06/08/19 02:59 Last 24 Hour Vital Signs Date Time Temp Pulse Resp B/P (MAP) Pulse Ox O2 Delivery O2 Flow Rate FiO2 06/02/19 12:00 97.7 86 20 144/89 (107) 99 06/02/19 08:00 98.0 74 18 104/65 (78) 97 06/02/19 04:00 98.2 80 20 100/60 (73) 95 06/02/19 00:00 98.3 73 20 107/63 (78) 99 06/01/19 21:00 Room Air 06/01/19 20:00 98.6 88 20 108/67 (81) 96 06/01/19 16:00 98.9 77 16 135/81 (99) 100 06/01/19 12:00 97.0 79 19 118/70 (86) 97 06/01/19 09:00 Room Air 06/01/19 08:00 97.7 72 20 127/78 (94) 96 06/01/19 04:42 Room Air 06/01/19 03:30 98.3 85 18 119/79 (92) 99 06/01/19 03:28 99.0 93 16 132/74 99 Room Air 98 06/01/19 01:44 98.2 92 18 130/72 99 Room Air 06/01/19 00:01 98.9 91 18 128/80 98 Room Air 05/31/19 21:56 111 15 Room Air 98 05/31/19 21:56 99.0 110 18 132/86 98 Room Air 05/31/19 21:48 99.0 115 18 145/86 (105) 98 Room Air Intake and Output 06/01/19 06/02/19 19:00 07:00 Intake Total 953 ml 150 ml Balance 953 ml 150 ml Intake Oral 953 ml 150 ml # Voids 2 3 Labs Test 05/31/19 22:18 05/31/19 23:26 06/01/19 01:23 06/01/19 07:00 White Blood Count 23.6 K/UL (4.8-10.8) 19.2 K/UL (4.8-10.8) 14.2 K/UL (4.8-10.8) Red Blood Count 4.45 M/UL (4.20-5.40) 4.06 M/UL (4.20-5.40) 3.97 M/UL (4.20-5.40) Hemoglobin 13.7 G/DL (12.0-16.0) 12.4 G/DL (12.0-16.0) 12.1 G/DL (12.0-16.0) Hematocrit 38.7 % (37.0-47.0) 36.8 % (37.0-47.0) 35.5 % (37.0-47.0) Mean Corpuscular Volume 87 FL (80-99) 91 FL (80-99) 89 FL (80-99) Mean Corpuscular Hemoglobin 30.8 PG (27.0-31.0) 30.6 PG (27.0-31.0) 30.5 PG (27.0-31.0) Mean Corpuscular Hemoglobin Concent 35.5 G/DL (32.0-36.0) 33.7 G/DL (32.0-36.0) 34.2 G/DL (32.0-36.0) Red Cell Distribution Width 11.3 % (11.6-14.8) 12.3 % (11.6-14.8) 11.9 % (11.6-14.8) Platelet Count 287 K/UL (150-450) 208 K/UL (150-450) 248 K/UL (150-450) Mean Platelet Volume 4.9 FL (6.5-10.1) 5.0 FL (6.5-10.1) 5.3 FL (6.5-10.1) Neutrophils (%) (Auto) % (45.0-75.0) % (45.0-75.0) 81.2 % (45.0-75.0) Lymphocytes (%) (Auto) % (20.0-45.0) % (20.0-45.0) 13.0 % (20.0-45.0) Monocytes (%) (Auto) % (1.0-10.0) % (1.0-10.0) 4.0 % (1.0-10.0) Eosinophils (%) (Auto) % (0.0-3.0) % (0.0-3.0) 1.6 % (0.0-3.0) Basophils (%) (Auto) % (0.0-2.0) % (0.0-2.0) 0.3 % (0.0-2.0) Differential Total Cells Counted 100 100 Neutrophils % (Manual) 85 % (45-75) 87 % (45-75) Lymphocytes % (Manual) 9 % (20-45) 8 % (20-45) Monocytes % (Manual) 5 % (1-10) 5 % (1-10) Eosinophils % (Manual) 0 % (0-3) 0 % (0-3) Basophils % (Manual) 0 % (0-2) 0 % (0-2) Band Neutrophils 1 % (0-8) 0 % (0-8) Platelet Estimate Adequate Adequate Platelet Morphology Normal Normal Red Blood Cell Morphology Normal Urine Color Pale yellow Urine Appearance Cloudy Urine pH 9 (4.5-8.0) Urine Specific [place] 1.015 (1.005-1.035) Urine Protein Negative (NEGATIVE) Urine Glucose (UA) Negative (NEGATIVE) Urine Ketones Negative (NEGATIVE) Urine Blood Negative (NEGATIVE) Urine Nitrite Negative (NEGATIVE) Urine Bilirubin Negative (NEGATIVE) Urine Urobilinogen Normal MG/DL (0.0-1.0) Urine Leukocyte Esterase Negative (NEGATIVE) Urine HCG, Qualitative Negative (NEGATIVE) Sodium Level 137 MMOL/L (136-145) Potassium Level 4.3 MMOL/L (3.5-5.1) Chloride Level 104 MMOL/L (98-107) Carbon Dioxide Level 26 MMOL/L (21-32) Anion Gap 7 mmol/L (5-15) Blood Urea Nitrogen 9 mg/dL (7-18) Creatinine 1.0 MG/DL (0.55-1.30) Estimat Glomerular Filtration Rate 59.2 mL/min (>60) Glucose Level 98 MG/DL (74-106) Calcium Level 9.7 MG/DL (8.5-10.1) Total Bilirubin 0.7 MG/DL (0.2-1.0) Aspartate Amino Transf (AST/SGOT) 20 U/L (15-37) Alanine Aminotransferase (ALT/SGPT) 22 U/L (12-78) Alkaline Phosphatase 60 U/L (46-116) Total Protein 7.1 G/DL (6.4-8.2) Albumin 3.5 G/DL (3.4-5.0) Globulin 3.6 g/dL Albumin/Globulin Ratio 1.0 (1.0-2.7) Lipase 179 U/L (73-393) Urine Opiates Screen Negative (NEGATIVE) Urine Barbiturates Screen Negative (NEGATIVE) Phencyclidine (PCP) Screen Negative (NEGATIVE) Urine Amphetamines Screen Negative (NEGATIVE) Urine Benzodiazepines Screen Negative (NEGATIVE) Urine Cocaine Screen Negative (NEGATIVE) Urine Marijuana (THC) Screen Negative (NEGATIVE) Lactic Acid Level 1.00 mmol/L (0.4-2.0) Test 06/02/19 05:40 White Blood Count 6.6 K/UL (4.8-10.8) Red Blood Count 3.96 M/UL (4.20-5.40) Hemoglobin 12.2 G/DL (12.0-16.0) Hematocrit 36.5 % (37.0-47.0) Mean Corpuscular Volume 92 FL (80-99) Mean Corpuscular Hemoglobin 30.8 PG (27.0-31.0) Mean Corpuscular Hemoglobin Concent 33.4 G/DL (32.0-36.0) Red Cell Distribution Width 12.5 % (11.6-14.8) Platelet Count 249 K/UL (150-450) Mean Platelet Volume 5.2 FL (6.5-10.1) Neutrophils (%) (Auto) 57.8 % (45.0-75.0) Lymphocytes (%) (Auto) 26.1 % (20.0-45.0) Monocytes (%) (Auto) 10.8 % (1.0-10.0) Eosinophils (%) (Auto) 4.5 % (0.0-3.0) Basophils (%) (Auto) 0.8 % (0.0-2.0) Sodium Level 141 MMOL/L (136-145) Potassium Level 3.7 MMOL/L (3.5-5.1) Chloride Level 109 MMOL/L (98-107) Carbon Dioxide Level 24 MMOL/L (21-32) Anion Gap 8 mmol/L (5-15) Blood Urea Nitrogen 10 mg/dL (7-18) Creatinine 0.8 MG/DL (0.55-1.30) Estimat Glomerular Filtration Rate > 60 mL/min (>60) Glucose Level 117 MG/DL (74-106) Calcium Level 8.4 MG/DL (8.5-10.1) Phosphorus Level 3.5 MG/DL (2.5-4.9) Magnesium Level 1.5 MG/DL (1.8-2.4) Total Bilirubin 0.2 MG/DL (0.2-1.0) Aspartate Amino Transf (AST/SGOT) 28 U/L (15-37) Alanine Aminotransferase (ALT/SGPT) 33 U/L (12-78) Alkaline Phosphatase 50 U/L (46-116) Total Protein 6.0 G/DL (6.4-8.2) Albumin 2.7 G/DL (3.4-5.0) Globulin 3.3 g/dL Albumin/Globulin Ratio 0.8 (1.0-2.7) Micro Microbiology Date/Time Source Procedure Growth Status 06/02/19 11:00 Vaginal Wet Prep - Final Complete Height (Feet): 5 Height (Inches): 7.00 Weight (Pounds): 125 Objective GENERAL: No acute distress, appears comfortable, alert HEENT: NCAT, non-icteric eyes, pupils PERRLA Neck: No cervical lymphadenopathy, trachea midline CV: Regular rate and rhythm, no murmurs rubs or gallops RESP: Clear to auscultation bilaterally, no wheezes/rhonchi/crackles ABD: soft, non-distended, no TTP Pelvic exam, thin white discharge at introitus, cervix not visualized, sample sent for gonorrhea chlamydia wet mount and culture. No cervical motion tenderness no ovarian masses noted EXT: Normal muscle tone, +5/5 muscle strength NEURO: No obvious deficits, alert and oriented x3 Kenroy Argueta MD Jun 02, 2019 16:57
--- NOTE | 2019-06-02 19:15 | Consultation ---
DATE OF CONSULTATION: 06/02/2019 INFECTIOUS DISEASE CONSULT CONSULTING PHYSICIAN: Milagros Escalona M.D. ATTENDING PHYSICIAN: Brandy Christian M.D. REFERRING PHYSICIAN: Hilary Dawson D.O. REASON FOR CONSULTATION: Possible sepsis, leukocytosis, possible gram-positive bacteremia, rule out STD infection with gonorrhea and chlamydia. CHIEF COMPLAINT: The patient's chief complaint coming into the hospital is sepsis, elevated white count. HISTORY OF PRESENT ILLNESS: This is a very pleasant 48-year-old female who came to [facility] with aches and pains. The patient had no documented fevers in the hospital. However, her white count was quite elevated at 23.6 and she was also tachycardic on admission. There was concern that the patient was septic. Infectious Disease consult requested. The patient yesterday was started on Levaquin and Flagyl. Workup shows that 2 out of 4 bottles have gram-positive organisms. I have added Vanco. The patient had discharge on pelvic exam. The wet mount or wet prep did not show any trichomonads or clue cells, so I discontinued Flagyl. She is currently on doxycycline for treatment for presumptive Chlamydia and she has already gotten Rocephin for the presumptive gonorrhea. Testing for those organisms is pending still. Echo showed no vegetations. Identification of gram-positive blood cultures are pending. The patient will be continued right now on Vanco and doxy. The patient was getting rheumatologic workup. REVIEW OF SYSTEMS: CONSTITUTIONAL: Main issue she came in with aches and pains, general weakness. No fevers. HEAD AND NECK: No obvious headache or thrush or dysphagia. CARDIAC: No chest pain. GASTROINTESTINAL: No nausea, vomiting, or diarrhea. GENITOURINARY: No Charles. No dysuria or frequency. PULMONARY: No congestion or shortness of breath. PAST MEDICAL HISTORY: Includes the following. She has history of off and on aches and pains. She has a history of lung nodule, history of smoking. No other past medical history was noted such as diabetes or hypertension. ALLERGIES: No known drug allergies. SOCIAL HISTORY: Positive smoking. No alcohol or drug abuse. FAMILY HISTORY: Noncontributory. MEDICATIONS: Upon reviewing the MAR, she is on following medications. She is on doxy. She was given 1 dose of Rocephin. She was on Levaquin and Flagyl, which was discontinued. She is on Vanco. She is on Zofran as needed. She is on hydrocodone as needed, acetaminophen as needed. Outside medications noted and reconciliated. She was on Macrobid and doxycycline as an outpatient. PHYSICAL EXAMINATION: VITAL SIGNS: Temperature 98.0, pulse rate is 74, respiratory rate 18, blood pressure 104/65, saturation 97%. GENERAL: Alert, responsive, no distress. HEAD AND NECK: Oral exam, no thrush. Eye exam, no icterus. Neck is supple. No JVD. Normocephalic. HEART: Regular. No gallop or murmur. ABDOMEN: Soft. Positive bowel sounds. Nontender. No rebound. LUNGS: Clear bilaterally. No rhonchi or rales. SKIN: No rash. MUSCULOSKELETAL: No effusion. Legs are without cellulitis. PERIPHERAL VASCULAR: No cyanosis. GENITOURINARY: No Charles. No CVA tenderness. LINE SITES: Without phlebitis. NEUROLOGIC: Intact. LABORATORY AND DIAGNOSTIC DATA: Laboratory data as follows. White count 6.6, hemoglobin 12.2. White count on 05/31/2019 was 23.6. Creatinine 0.8. UA is negative. Cultures wet prep showed no trichomonads and no clue cells. No yeast. Did show bacteria. Blood cultures 2 out of 4 gram-positive cocci in clusters. Identification is pending. Gonorrhea and chlamydia testing are pending. IMAGING STUDIES: 2D echo showed no definitive vegetations. CT scan of the abdomen and pelvis shows the following. It showed no acute abdominal process. CT scan of the chest showed interstitial septal thickening, most likely interstitial edema. No dense consolidation demonstrated. ASSESSMENT AND PLAN: 1. The patient has possible sepsis, elevated white count, SIRS criteria. She did come with tachycardia, elevated white count. The patient has gram-positive blood cultures, questionable bacteremia. The patient is being treated for gonorrhea and Chlamydia presumptively. Wet testing is pending. There was some discharge on pelvic exam per discussion with Dr. Dawson. At this time, she has been already given Rocephin. She is on doxycycline and Vanco currently. Flagyl has been discontinued based on urinalysis and Levaquin has been discontinued. Continue with Vanco and doxycycline. Check followup blood cultures. Check identification of blood cultures. Monitor labs. Case discussed with Dr. Dawson, the patient, and the patient's mother. Echo again showed no vegetations at this time. Continue antibiotics for presumed sepsis pending final workup. 2. No other significant past medical history. 3. She had recent dental work 3 weeks ago. 4. The patient says she has this off and on arthritic and myalgic pain and weakness, unclear etiology. Rheumatologic workup is in progress. 5. We will follow up on Lyme disease and HIV testing. 6. No known allergies. 7. Social history, positive smoker. 8. Family history noncontributory. 9. MAR is noted. 10. Case was discussed with RN. 11. Continue treatment per primary consultants. Milagros Escalona M.D. DR: CLEVE JOB#: [id number] CC:
--- NOTE | 2019-06-02 19:40 | NUR ---
HAND-OFF: Report given to Hina PADILLA/Itzel PADILLA.
[2019-06-02 20:00] VITALS: BP 131/84
--- NOTE | 2019-06-02 20:09 | NUR ---
NURSE NOTES: Pt received in bed, no c/o pain or signs of distress, call light within reach, able to make needs known, bed in lowest position, will continue to monitor.
--- NOTE | 2019-06-02 23:50 | NUR ---
NURSE NOTES: Pt went on elevator in a wheelchair with the guest after stating she was going between floors for a change of scenery. Pt was actually outside the facility smoking with her guest. Pt education was provided and pt stated she was coming back inside, which she did.
[2019-06-03] VITALS: BP 134/80
[2019-06-03] MEDS: Vancomycin 750mg/D5W 275ml IVPB SCH ×4 (03:09→15:33)
[2019-06-03 04:00] VITALS: BP 136/82
[2019-06-03 07:30] LABS: BASOPHILS % (AUTO) 0.9 % (0.0-2.0); EOSINOPHILS % (AUTO) 4.1 % (0.0-3.0); HEMATOCRIT 38.9 % (37.0-47.0); HEMOGLOBIN 12.7 G/DL (12.0-16.0); LYMPHOCYTES % (AUTO) 24.1 % (20.0-45.0); MEAN CORPUSCULAR VOLUME 91 FL (80-99); MONOCYTES % (AUTO) 7.7 % (1.0-10.0); NEUTROPHILS % (AUTO) 63.2 % (45.0-75.0); PLATELET COUNT 279 K/UL (150-450); RED BLOOD COUNT 4.27 M/UL (4.20-5.40); RED CELL DISTRIBUTION WIDTH 12.3 % (11.6-14.8); WHITE BLOOD COUNT 7.9 K/UL (4.8-10.8)
--- NOTE | 2019-06-03 07:30 | NUR ---
NURSE NOTES: Report received from RANDY Robbins. Patient asleep comfortably. No signs or symptoms of distress noted. Bed on lowest position, side rails upx2, brakes engaged. White board updated.
--- NOTE | 2019-06-03 07:37 | NUR ---
HAND-OFF: Report given to RANDY Baig.
[2019-06-03 07:50] LABS: ANION GAP 9 mmol/L (5-15); BLOOD UREA NITROGEN 9 mg/dL (7-18); CALCIUM 8.7 MG/DL (8.5-10.1); CARBON DIOXIDE 24 MMOL/L (21-32); CHLORIDE 107 MMOL/L (98-107); CREATININE 0.7 MG/DL (0.55-1.30); POTASSIUM 3.6 MMOL/L (3.5-5.1); SODIUM 139 MMOL/L (136-145)
[2019-06-03 08:00] VITALS: BP 137/86
[2019-06-03] MEDS: Doxycycline Hyclate 100 MG in D5W 110 ML IV SCH ×2 (09:02→21:03)
--- NOTE | 2019-06-03 11:11 | NUR ---
NURSE NOTES: Pt. left floor against CN advise. Followed through the stairs and emergency exit, alarm was activated. Pt. on the street with hospital gown and own purse. Calmed Pt. reminded hospital rules. "I don't care I have to smoke!!, I need 1 smoke per day!! I'm laying down in bed like a fing person! I need air and smoke!!" suggestion given for nicotine patch, "I don't need a patch! Been smocking for 27 years I'm not about to stop in one click!!.... Pt. back on the floor and safely in bed." CN communicated with MD. Privileges given to go out for air accompanied by staff.
[2019-06-03 12:00] VITALS: BP 139/96
--- NOTE | 2019-06-03 13:17 | General Progress Note ---
Assessment/Plan Assessment/Plan: 48-year-old female past medical history of UTI, PID, presents with generalized weakness, muscle aches #Vague symptoms, generalized malaise, SIRS space DDX: Viral etiology versus PID, vs autoimmune versus infectious including rickettsial diseases #Sepsis secondary to GPC bacteremia -discharge noted on pelvic exam 06/02 - f/u wet mount: neg - gc chalmydia,culture - gpc on bxs, f/u identification and sensitivities -Repeat blood cultures: ngt -Check 2D echo: no veg -abx per ID: cont Vanco/ doxy s/p one dose ceftriaxone 250 mg IM s/p flagyl (wet mount neg) -ID consult, appreciate recs -Chest x-ray: Negative -UA negative -No open wounds -Titers per ID such as Lyme disease -Rheumatology consult, not available -ARNOL, lupus Sjogren's work-up, pending -Supportive care - CT a/p: Bilateral diffuse interstitial septal thickening, most likely on the basis of interstitial edema #Acute leukocytosis, resolved -WBC 23.6-19 0.2-14.2 -Plan as per above #Lung nodule -Follow-up outpatient x-ray -Evaluated by hematology, appreciate recs #Smoking history -Social work -Cessation education -Nicotine patch if amenable; offered to patient however she refused # FULL CODE The time of my note may not reflect the time of my patient encounter. Subjective Date patient seen: Jun 03, 2019 Allergies: Coded Allergies: No Known Allergies (Unverified , 03/16/16) All Systems: reviewed and negative except above Subjective Patient doing better, bcx +, patient attempted to leave the room to smoke, she was offered nicotine patch and refused. Objective Last 24 Hour Vital Signs Date Time Temp Pulse Resp B/P (MAP) Pulse Ox O2 Delivery O2 Flow Rate FiO2 06/03/19 12:00 98.1 85 18 139/96 (110) 99 06/03/19 09:00 Room Air 06/03/19 08:00 98.9 75 17 137/86 (103) 99 06/03/19 04:00 98.7 77 18 136/82 (100) 97 06/03/19 00:00 98.6 79 18 134/80 (98) 97 06/02/19 21:00 Room Air 06/02/19 20:00 98.8 78 16 131/84 (100) 93 06/02/19 16:00 97.7 78 18 154/85 (108) 99 Intake and Output 06/02/19 06/03/19 18:59 06:59 Intake Total 240 ml 773.333 ml Balance 240 ml 773.333 ml Intake Oral 240 ml 480 ml IV Total 293.333 ml # Voids 3 2 Laboratory Tests 06/03/19 07:10: White Blood Count 7.9, Red Blood Count 4.27, Hemoglobin 12.7, Hematocrit 38.9, Mean Corpuscular Volume 91, Mean Corpuscular Hemoglobin 29.8, Mean Corpuscular Hemoglobin Concent 32.7, Red Cell Distribution Width 12.3, Platelet Count 279, Mean Platelet Volume 5.4L, Neutrophils (%) (Auto) 63.2, Lymphocytes (%) (Auto) 24.1, Monocytes (%) (Auto) 7.7, Eosinophils (%) (Auto) 4.1H, Basophils (%) (Auto ) 0.9, Sodium Level 139, Potassium Level 3.6, Chloride Level 107, Carbon Dioxide Level 24, Anion Gap 9, Blood Urea Nitrogen 9, Creatinine 0.7, Estimat Glomerular Filtration Rate > 60, Glucose Level 90, Calcium Level 8.7 Height (Feet): 5 Height (Inches): 7.00 Weight (Pounds): 125 Objective GENERAL: No acute distress, appears comfortable, alert HEENT: NCAT, non-icteric eyes, pupils PERRLA Neck: No cervical lymphadenopathy, trachea midline CV: Regular rate and rhythm, no murmurs rubs or gallops RESP: Clear to auscultation bilaterally, no wheezes/rhonchi/crackles ABD: soft, non-distended, no TTP EXT: Normal muscle tone, +5/5 muscle strength NEURO: No obvious deficits, alert and oriented x3 Hilary Dawson DO Jun 03, 2019 13:16
[2019-06-03] MEDS ORDERED: Vancomycin 1.25gm Premix q24h IVPB SCH (15:00)
[2019-06-03 16:00] VITALS: BP 130/75
[2019-06-03] MEDS ORDERED: NS 275ml ONE (17:00)
[2019-06-03] MEDS ORDERED: Tubing IV Secondary IV ONE (17:00)
--- NOTE | 2019-06-03 19:40 | NUR ---
END OF SHIFT NOTE: Pt. AOx4. Zofran given at AM for N. Lunch and dinner tolerated well. Denies any pain, N/V at this time. 1BM, dry, formed. No stool collected.
--- NOTE | 2019-06-03 19:47 | NUR ---
HAND-OFF: Report given to RANDY Hurtado. Pateint in stable condition. Plan of care endorsed.
[2019-06-03 20:00] VITALS: BP 140/91
[2019-06-03] MEDS ORDERED: DiphenhydrAMINE 50mg/ml Inj IVP PRN (23:15)
[2019-06-04] VITALS (8 sets, daily range): BP systolic 120–143; BP diastolic 81–97
[2019-06-04] MEDS: Vancomycin 750mg/D5W 275ml IVPB SCH ×2 (03:11)
--- NOTE | 2019-06-04 03:37 | NUR ---
NURSE NOTE: Pt is A/Ox4 with stable VS. Orders reviewed and skin is intact. Pt left forearm IV was removed and replaced with a right 22g forearm to do complaints of irritation and some itching which she felt was caused by an earlier dose of Vancomycin. 25mg IV Benadryl order obtained to administer before Vancomycin administration. Pt had one male visitor. RN accompanied both outside for patio privileges at approx. 2230. Pt smoked a cigarette despite education and verbal instruction not do so against MD orders, pt verbalized understanding. SCD's were applied with night time meds but were found to be self removed during later rounding. Pt refused to reapply at that moment. Call correa remains within reach. Bed alarm is on. Will continue to follow plan of care.
--- NOTE | 2019-06-04 07:24 | NUR ---
HAND-OFF: Report given to Kishore. Pt is stable, endorsed plan of care.
--- NOTE | 2019-06-04 07:30 | NUR ---
NURSE NOTES: Patient lying in bed awake. Complain of mild pain and will continue to monitor. Skin intact and dry. IV dressing intact and dry. Bed lowest position. Call light within reach. Will continue to monitor.
[2019-06-04 07:53] LABS: BASOPHILS % (AUTO) 1.2 % (0.0-2.0); EOSINOPHILS % (AUTO) 5.4 % (0.0-3.0); HEMATOCRIT 41.3 % (37.0-47.0); HEMOGLOBIN 13.7 G/DL (12.0-16.0); LYMPHOCYTES % (AUTO) 31.8 % (20.0-45.0); MEAN CORPUSCULAR VOLUME 91 FL (80-99); MONOCYTES % (AUTO) 6.9 % (1.0-10.0); NEUTROPHILS % (AUTO) 54.7 % (45.0-75.0); PLATELET COUNT 277 K/UL (150-450); RED BLOOD COUNT 4.55 M/UL (4.20-5.40); WHITE BLOOD COUNT 7.4 K/UL (4.8-10.8)
[2019-06-04] MEDS: Doxycycline Hyclate 100 MG in D5W 110 ML IV SCH ×2 (08:37→09:00)
[2019-06-04 09:01] LABS: ANION GAP 10 mmol/L (5-15); BLOOD UREA NITROGEN 9 mg/dL (7-18); CALCIUM 9.1 MG/DL (8.5-10.1); CARBON DIOXIDE 23 MMOL/L (21-32); CHLORIDE 106 MMOL/L (98-107); CREATININE 0.7 MG/DL (0.55-1.30); PHOSPHORUS 4.2 MG/DL (2.5-4.9); POTASSIUM 4.1 MMOL/L (3.5-5.1); SODIUM 139 MMOL/L (136-145)
--- NOTE | 2019-06-04 09:50 | NUR ---
NURSE NOTES: Seen and evaluated by and new order received. Order read back and carried out.
--- NOTE | 2019-06-04 10:20 | NUR ---
NURSE NOTES: IV infiltrated during IV infusion. Tried to obtain new IV access but patient doesn't want new IV and asked to change PO. Spoke to regarding IV antibiotic and new order received. Order read back and carried out.
[2019-06-04] MEDS: Doxycycline Monohydrate 100mg ORAL SCH ×2 (10:37→20:22)
--- NOTE | 2019-06-04 11:37 | Hematology/Onc Progress Note ---
Assessment/Plan Assessment/Plan ASSESSMENT AND RECS # Leukocytosis/elevated white blood cell count, unspecified likely related to sepsis --> have reviewed peripheral smear and bandemia/neutrophilia noted --> continue antibiotics by ID team --> wbc trend 19-->14-->7 --> monitor for resolution # Lung nodule left lower lobe approx 0.5cm, noted on ct of the chest/abd/pelvis --> f/u outpatient x-ray --> can get ct scan chest in 12 months --> given age and risk factors, low liklihood mlaignancy # Generalized malaise --> due to infection # Sepsis secondary to bacteremia --> ID is following, appreciate recs --> rheum w/u --> abx per ID # Smoking history The timing of this note does not necessarily reflect the time of the patient was seen. GREATLY APPRECIATE CONSULTATION. Subjective Constitutional: Denies: no symptoms, chills, fever, malaise, weakness, other HEENT: Denies: no symptoms, eye pain, blurred vision, tearing, double vision, ear pain, ear discharge, nose pain, nose congestion, throat pain, throat swelling, mouth pain, mouth swelling, other Cardiovascular: Denies: no symptoms, chest pain, edema, irregular heart rate, lightheadedness, palpitations, syncope, other Gastrointestinal/Abdominal: Denies: no symptoms, abdomen distended, abdominal pain, black stools, tarry stools, blood in stool, constipated, diarrhea, difficulty swallowing, nausea, poor appetite, poor fluid intake, rectal bleeding , vomiting, other Neurologic/Psychiatric: Denies: no symptoms, anxiety, depressed, emotional problems, headache, numbness, paresthesia, pre-existing deficit, seizure, tingling, tremors, weakness, other Endocrine: Denies: no symptoms, excessive sweating, flushing, intolerance to cold, intolerance to heat, increased hunger, increased thirst, increased urine, unexplained weight gain, unexplained weight loss, other Allergies: Coded Allergies: No Known Allergies (Unverified , 03/16/16) Subjective 06/02: no overnight events, cdiff pending, labs reviewed 06/04: remains on doxy and vanc, labs reviewed, no bleeding Objective Objective Current Medications Medications (Trade) Dose Ordered Sig/Adriana Route PRN Reason Start Time Stop Time Status Last Admin Dose Admin Acetaminophen (Tylenol) 650 mg Q4H PRN ORAL Mild Pain/Temp > 100.5 06/01/19 05:00 07/01/19 04:59 06/03/19 21:12 Acetaminophen/ Hydrocodone Bitart ([place] 5/325) 1 tab Q4H PRN ORAL Moderate Pain (Pain Scale 4-6) 06/01/19 05:00 06/08/19 04:59 06/02/19 10:33 Acetaminophen/ Hydrocodone Bitart ([place] 5/325) 2 tab Q4H PRN ORAL Severe Pain (Pain Scale 7-10) 06/01/19 05:00 06/08/19 04:59 06/01/19 21:54 Diphenhydramine HCl (Benadryl) 25 mg Q6H PRN IVP Itching 06/03/19 23:15 07/03/19 23:14 06/04/19 03:10 Doxycycline Monohydrate (Doxycycline Monohydrate) 100 mg EVERY 12 HOURS ORAL 06/04/19 10:30 06/11/19 10:29 06/04/19 10:37 Magnesium Oxide (Mag-Ox 400mg) 400 mg THREE TIMES A DAY ORAL 06/04/19 13:00 07/04/19 12:59 Morphine Sulfate (Morphine Sulfate) 2 mg Q4H PRN IVP Severe breakthru pain 06/01/19 05:00 06/08/19 04:59 Ondansetron HCl (Zofran) 4 mg Q4H PRN IVP Nausea & Vomiting 06/01/19 05:00 07/01/19 04:59 06/03/19 09:01 Vancomycin HCl (Vanco rx to dose) 1 ea DAILY PRN MISC Per rx protocol 06/02/19 11:45 07/02/19 11:44 Vancomycin HCl 750 mg/Dextrose 275 ml @ 183.333 mls/hr Q12H IVPB 06/03/19 03:00 06/08/19 02:59 06/04/19 03:11 Last 24 Hour Vital Signs Date Time Temp Pulse Resp B/P (MAP) Pulse Ox O2 Delivery O2 Flow Rate FiO2 06/04/19 09:00 Room Air 06/04/19 08:00 98.3 83 17 136/81 (99) 100 06/04/19 04:27 99.2 68 19 143/96 (112) 100 06/04/19 00:00 99.2 82 18 142/97 (112) 99 06/03/19 21:00 Room Air 06/03/19 20:00 99.3 87 18 140/91 (107) 100 06/03/19 16:00 98.3 93 19 130/75 (93) 99 06/03/19 12:00 98.1 85 18 139/96 (110) 99 06/03/19 09:00 Room Air 06/03/19 08:00 98.9 75 17 137/86 (103) 99 06/03/19 04:00 98.7 77 18 136/82 (100) 97 06/03/19 00:00 98.6 79 18 134/80 (98) 97 06/02/19 21:00 Room Air 06/02/19 20:00 98.8 78 16 131/84 (100) 93 06/02/19 16:00 97.7 78 18 154/85 (108) 99 06/02/19 12:00 97.7 86 20 144/89 (107) 99 Intake and Output 06/03/19 06/04/19 19:00 07:00 Intake Total 220 ml 700 ml Balance 220 ml 700 ml Intake Oral 700 ml IV Total 220 ml # Voids 4 Labs Test 06/02/19 05:40 06/03/19 07:10 06/04/19 07:10 White Blood Count 6.6 K/UL (4.8-10.8) 7.9 K/UL (4.8-10.8) 7.4 K/UL (4.8-10.8) Red Blood Count 3.96 M/UL (4.20-5.40) 4.27 M/UL (4.20-5.40) 4.55 M/UL (4.20-5.40) Hemoglobin 12.2 G/DL (12.0-16.0) 12.7 G/DL (12.0-16.0) 13.7 G/DL (12.0-16.0) Hematocrit 36.5 % (37.0-47.0) 38.9 % (37.0-47.0) 41.3 % (37.0-47.0) Mean Corpuscular Volume 92 FL (80-99) 91 FL (80-99) 91 FL (80-99) Mean Corpuscular Hemoglobin 30.8 PG (27.0-31.0) 29.8 PG (27.0-31.0) 30.2 PG (27.0-31.0) Mean Corpuscular Hemoglobin Concent 33.4 G/DL (32.0-36.0) 32.7 G/DL (32.0-36.0) 33.2 G/DL (32.0-36.0) Red Cell Distribution Width 12.5 % (11.6-14.8) 12.3 % (11.6-14.8) 12.0 % (11.6-14.8) Platelet Count 249 K/UL (150-450) 279 K/UL (150-450) 277 K/UL (150-450) Mean Platelet Volume 5.2 FL (6.5-10.1) 5.4 FL (6.5-10.1) 5.2 FL (6.5-10.1) Neutrophils (%) (Auto) 57.8 % (45.0-75.0) 63.2 % (45.0-75.0) 54.7 % (45.0-75.0) Lymphocytes (%) (Auto) 26.1 % (20.0-45.0) 24.1 % (20.0-45.0) 31.8 % (20.0-45.0) Monocytes (%) (Auto) 10.8 % (1.0-10.0) 7.7 % (1.0-10.0) 6.9 % (1.0-10.0) Eosinophils (%) (Auto) 4.5 % (0.0-3.0) 4.1 % (0.0-3.0) 5.4 % (0.0-3.0) Basophils (%) (Auto) 0.8 % (0.0-2.0) 0.9 % (0.0-2.0) 1.2 % (0.0-2.0) Sodium Level 141 MMOL/L (136-145) 139 MMOL/L (136-145) 139 MMOL/L (136-145) Potassium Level 3.7 MMOL/L (3.5-5.1) 3.6 MMOL/L (3.5-5.1) 4.1 MMOL/L (3.5-5.1) Chloride Level 109 MMOL/L (98-107) 107 MMOL/L (98-107) 106 MMOL/L (98-107) Carbon Dioxide Level 24 MMOL/L (21-32) 24 MMOL/L (21-32) 23 MMOL/L (21-32) Anion Gap 8 mmol/L (5-15) 9 mmol/L (5-15) 10 mmol/L (5-15) Blood Urea Nitrogen 10 mg/dL (7-18) 9 mg/dL (7-18) 9 mg/dL (7-18) Creatinine 0.8 MG/DL (0.55-1.30) 0.7 MG/DL (0.55-1.30) 0.7 MG/DL (0.55-1.30) Estimat Glomerular Filtration Rate > 60 mL/min (>60) > 60 mL/min (>60) > 60 mL/min (>60) Glucose Level 117 MG/DL (74-106) 90 MG/DL (74-106) 98 MG/DL (74-106) Calcium Level 8.4 MG/DL (8.5-10.1) 8.7 MG/DL (8.5-10.1) 9.1 MG/DL (8.5-10.1) Phosphorus Level 3.5 MG/DL (2.5-4.9) 4.2 MG/DL (2.5-4.9) Magnesium Level 1.5 MG/DL (1.8-2.4) 1.7 MG/DL (1.8-2.4) Total Bilirubin 0.2 MG/DL (0.2-1.0) Aspartate Amino Transf (AST/SGOT) 28 U/L (15-37) Alanine Aminotransferase (ALT/SGPT) 33 U/L (12-78) Alkaline Phosphatase 50 U/L (46-116) Total Protein 6.0 G/DL (6.4-8.2) Albumin 2.7 G/DL (3.4-5.0) Globulin 3.3 g/dL Albumin/Globulin Ratio 0.8 (1.0-2.7) HIV (1&2) Antibody Rapid Negative (NEGATIVE) Height (Feet): 5 Height (Inches): 7.00 Weight (Pounds): 125 Objective GENERAL: No acute distress, appears comfortable, alert HEENT: NCAT, non-icteric eyes, pupils PERRLA Neck: No cervical lymphadenopathy, trachea midline CV: Regular rate and rhythm, no murmurs rubs or gallops RESP: Clear to auscultation bilaterally, no wheezes/rhonchi/crackles ABD: soft, non-distended, no TTP Pelvic exam, thin white discharge at introitus, cervix not visualized, sample sent for gonorrhea chlamydia wet mount and culture. No cervical motion tenderness no ovarian masses noted EXT: Normal muscle tone, +5/5 muscle strength NEURO: No obvious deficits, alert and oriented x3 Kenroy Argueta MD Jun 04, 2019 11:37
--- NOTE | 2019-06-04 12:36 | General Progress Note ---
Assessment/Plan Assessment/Plan: 48-year-old female past medical history of UTI, PID, presents with generalized weakness, muscle aches #Vague symptoms, generalized malaise, SIRS space DDX: Viral etiology versus PID, vs autoimmune versus infectious including rickettsial diseases #Sepsis secondary to GPC bacteremia -discharge noted on pelvic exam 06/02 - f/u wet mount: neg - f/u gc chalmydia,culture - gpc on bxs,staph hominims , contamination? dc vanco? -Check 2D echo: no veg -abx per ID: cont Vanco (06/02) / doxy (06/02-)-> doxy changed to po 2/ iv infiltration s/p one dose ceftriaxone 250 mg IM 06/02 s/p flagyl (wet mount neg) dcd 06/02 -ID consult, appreciate recs -Chest x-ray: Negative -UA negative , repeat -No open wounds -Titers per ID such as Lyme disease -Rheumatology consult, not available -ARNOL, lupus Sjogren's work-up, pending -Supportive care - CT a/p: Bilateral diffuse interstitial septal thickening, most likely on the basis of interstitial edema #Acute leukocytosis, resolved -WBC 23.6-19 0.2-14.2 -Plan as per above #Lung nodule -Follow-up outpatient x-ray -Evaluated by hematology, appreciate recs #Smoking history -Social work -Cessation education -Nicotine patch if amenable; offered to patient however she refused # FULL CODE The time of my note may not reflect the time of my patient encounter. Subjective Date patient seen: Jun 04, 2019 Allergies: Coded Allergies: No Known Allergies (Unverified , 03/16/16) Subjective Patient complains of more discharge. Denies pruritis, ordor, fevers or chills. Objective Last 24 Hour Vital Signs Date Time Temp Pulse Resp B/P (MAP) Pulse Ox O2 Delivery O2 Flow Rate FiO2 06/04/19 12:00 98.6 90 17 120/81 (94) 100 06/04/19 09:00 Room Air 06/04/19 08:00 98.3 83 17 136/81 (99) 100 06/04/19 04:27 99.2 68 19 143/96 (112) 100 06/04/19 00:00 99.2 82 18 142/97 (112) 99 06/03/19 21:00 Room Air 06/03/19 20:00 99.3 87 18 140/91 (107) 100 06/03/19 16:00 98.3 93 19 130/75 (93) 99 Intake and Output 06/03/19 06/04/19 19:00 07:00 Intake Total 220 ml 700 ml Balance 220 ml 700 ml Intake Oral 700 ml IV Total 220 ml # Voids 4 Laboratory Tests 06/04/19 07:10: White Blood Count 7.4, Red Blood Count 4.55, Hemoglobin 13.7, Hematocrit 41.3, Mean Corpuscular Volume 91, Mean Corpuscular Hemoglobin 30.2, Mean Corpuscular Hemoglobin Concent 33.2, Red Cell Distribution Width 12.0, Platelet Count 277, Mean Platelet Volume 5.2L, Neutrophils (%) (Auto) 54.7, Lymphocytes (%) (Auto) 31.8, Monocytes (%) (Auto) 6.9, Eosinophils (%) (Auto) 5.4H, Basophils (%) (Auto ) 1.2, Sodium Level 139, Potassium Level 4.1, Chloride Level 106, Carbon Dioxide Level 23, Anion Gap 10, Blood Urea Nitrogen 9, Creatinine 0.7, Estimat Glomerular Filtration Rate > 60, Glucose Level 98, Calcium Level 9.1, Phosphorus Level 4.2, Magnesium Level 1.7L Height (Feet): 5 Height (Inches): 7.00 Weight (Pounds): 125 Objective GENERAL: No acute distress, appears comfortable, alert HEENT: NCAT, non-icteric eyes, pupils PERRLA Neck: No cervical lymphadenopathy, trachea midline CV: Regular rate and rhythm, no murmurs rubs or gallops RESP: Clear to auscultation bilaterally, no wheezes/rhonchi/crackles ABD: soft, non-distended, no TTP EXT: Normal muscle tone, +5/5 muscle strength NEURO: No obvious deficits, alert and oriented x3 Hilary Dawson DO Jun 04, 2019 12:36
[2019-06-04] MEDS: Magnesium Oxide 400mg tab ORAL SCH ×2 (12:39→17:59)
[2019-06-04] MEDS ORDERED: Fluconazole 100mg tab ORAL SCH (14:15)
--- NOTE | 2019-06-04 14:17 | Infectious Diseases Prog Note ---
Assessment/Plan Assessment/Plan ASSESSMENT AND PLAN: 1. sepsis, ? billing assistant bacteremia, ? chlamydia/gonorrhea/vaginal yeast infection, doubt endocarditis - doxycycline x 10 days more (tx billing assistant blood cultures and possible chlamydia) - s/p ceftriaxone for possible gonorrhea - diflucan x 1 for possible vaginal yeast infection - leukocytosis resolved, echo with vegetation - monitor labs - check surveillance blood cultures - patient refusing iv abx, vancomycin discontinued - d/w Dr. Dawson 2. No other significant past medical history. 3. She had recent dental work 3 weeks ago. 4. The patient says she has this off and on arthritic and myalgic pain and weakness, unclear etiology. Rheumatologic workup is in progress. 5. We will follow up on Lyme disease and HIV testing. 6. No known allergies. 7. Social history, positive smoker. 8. Family history noncontributory. 9. MAR is noted. 10. Case was discussed with RN. 11. Continue treatment per primary consultants. Subjective Constitutional: Denies: fever HEENT: Denies: congestion Respiratory: Denies: shortness of breath Cardiovascular: Denies: chest pain Gastrointestinal/Abdominal: Denies: nausea, vomiting, diarrhea Genitourinary: Denies: dysuria, hematuria Neurologic: Denies: headache Skin: Denies: rash Hematologic: Denies: bleeding Musculoskeletal: Denies: pain Allergies: Coded Allergies: No Known Allergies (Unverified , 03/16/16) Objective Vital Signs Last 24 Hour Vital Signs Date Time Temp Pulse Resp B/P (MAP) Pulse Ox O2 Delivery O2 Flow Rate FiO2 06/04/19 12:00 98.6 90 17 120/81 (94) 100 06/04/19 09:00 Room Air 06/04/19 08:00 98.3 83 17 136/81 (99) 100 06/04/19 04:27 99.2 68 19 143/96 (112) 100 06/04/19 00:00 99.2 82 18 142/97 (112) 99 06/03/19 21:00 Room Air 06/03/19 20:00 99.3 87 18 140/91 (107) 100 06/03/19 16:00 98.3 93 19 130/75 (93) 99 Height (Feet): 5 Height (Inches): 7.00 Weight (Pounds): 125 General Appearance: no acute distress HEENT: normocephalic, atraumatic, anicteric, mucous membranes moist Respiratory/Chest: lungs clear, normal breath sounds, no respiratory distress Cardiovascular: normal rate, regular rhythm, no gallop/murmur, no JVD Abdomen: normal bowel sounds, soft, non tender, no organomegaly, non distended Genitourinary: other - no kovacs, no cva pain Extremities: no cyanosis Skin: no rash Neurologic/Psychiatric: peoplesoft hrms developer II-XII grossly normal, alert, oriented x 3, responsive Lymphatic: no neck adenopathy Musculoskeletal: no effusion Objective CT abdomen and pelvis: Impression: Bilateral basilar pulmonary parenchymal interstitial septal thickening, nonspecific as regards etiology, could indicate interstitial edema No acute abdominal process Trace free pelvic fluid, most likely physiologic Nonobstructive 3 mm left lower pole calyceal calculus Other findings as noted, including posterior dependent pulmonary atelectatic changes, circumaortic left renal vein The above findings are in agreement with [facility] preliminary report 6 mm left lower lobe nodule. Recommend 12 month follow-up CT. This finding was phoned to patient's nurse at the time of interpretation The CT scanner at [facility] is accredited by the [employer] and the scans are performed using protocols designed to limit radiation exposure to as low as reasonably achievable to attain images of sufficient resolution adequate for diagnostic evaluation. CT chest: Impression: Bilateral diffuse interstitial septal thickening, most likely on the basis of interstitial edema No dense consolidation demonstrated The above findings are in agreement with the [facility] preliminary report 6 mm left basilar lung nodule. Recommend 6-12 month short interval follow-up CT scan. This was not described on the [facility] preliminary report. This finding was phoned to patient's nurse at the time of interpretation Microbiology Date/Time Source Procedure Growth Status 05/31/19 23:45 Blood Blood Culture - Final Staph Hominis Ssp Hominis Complete 06/02/19 11:00 Vaginal Wet Prep - Final Complete Laboratory Tests Test 06/04/19 07:10 White Blood Count 7.4 K/UL (4.8-10.8) Red Blood Count 4.55 M/UL (4.20-5.40) Hemoglobin 13.7 G/DL (12.0-16.0) Hematocrit 41.3 % (37.0-47.0) Mean Corpuscular Volume 91 FL (80-99) Mean Corpuscular Hemoglobin 30.2 PG (27.0-31.0) Mean Corpuscular Hemoglobin Concent 33.2 G/DL (32.0-36.0) Red Cell Distribution Width 12.0 % (11.6-14.8) Platelet Count 277 K/UL (150-450) Mean Platelet Volume 5.2 FL (6.5-10.1) L Neutrophils (%) (Auto) 54.7 % (45.0-75.0) Lymphocytes (%) (Auto) 31.8 % (20.0-45.0) Monocytes (%) (Auto) 6.9 % (1.0-10.0) Eosinophils (%) (Auto) 5.4 % (0.0-3.0) H Basophils (%) (Auto) 1.2 % (0.0-2.0) Sodium Level 139 MMOL/L (136-145) Potassium Level 4.1 MMOL/L (3.5-5.1) Chloride Level 106 MMOL/L (98-107) Carbon Dioxide Level 23 MMOL/L (21-32) Anion Gap 10 mmol/L (5-15) Blood Urea Nitrogen 9 mg/dL (7-18) Creatinine 0.7 MG/DL (0.55-1.30) Estimat Glomerular Filtration Rate > 60 mL/min (>60) Glucose Level 98 MG/DL (74-106) Calcium Level 9.1 MG/DL (8.5-10.1) Phosphorus Level 4.2 MG/DL (2.5-4.9) Magnesium Level 1.7 MG/DL (1.8-2.4) L Current Medications Medications (Trade) Dose Ordered Sig/Adriana Route PRN Reason Start Time Stop Time Status Last Admin Dose Admin Acetaminophen (Tylenol) 650 mg Q4H PRN ORAL Mild Pain/Temp > 100.5 06/01/19 05:00 07/01/19 04:59 06/03/19 21:12 Acetaminophen/ Hydrocodone Bitart ([place] 5/325) 1 tab Q4H PRN ORAL Moderate Pain (Pain Scale 4-6) 06/01/19 05:00 06/08/19 04:59 06/02/19 10:33 Acetaminophen/ Hydrocodone Bitart ([place] 5/325) 2 tab Q4H PRN ORAL Severe Pain (Pain Scale 7-10) 06/01/19 05:00 06/08/19 04:59 06/01/19 21:54 Diphenhydramine HCl (Benadryl) 25 mg Q6H PRN IVP Itching 06/03/19 23:15 07/03/19 23:14 06/04/19 03:10 Doxycycline Monohydrate (Doxycycline Monohydrate) 100 mg EVERY 12 HOURS ORAL 06/04/19 10:30 06/11/19 10:29 06/04/19 10:37 Magnesium Oxide (Mag-Ox 400mg) 400 mg THREE TIMES A DAY ORAL 06/04/19 13:00 07/04/19 12:59 06/04/19 12:39 Morphine Sulfate (Morphine Sulfate) 2 mg Q4H PRN IVP Severe breakthru pain 06/01/19 05:00 06/08/19 04:59 Ondansetron HCl (Zofran) 4 mg Q4H PRN IVP Nausea & Vomiting 06/01/19 05:00 07/01/19 04:59 06/03/19 09:01 Vancomycin HCl (Vanco rx to dose) 1 ea DAILY PRN MISC Per rx protocol 06/02/19 11:45 07/02/19 11:44 Vancomycin HCl 750 mg/Dextrose 275 ml @ 183.333 mls/hr Q12H IVPB 06/03/19 03:00 06/08/19 02:59 06/04/19 03:11 Milagros Escalona MD Jun 04, 2019 14:17
--- NOTE | 2019-06-04 18:10 | NUR ---
NURSE NOTES: Collect urine specimen and sent to lab.
[2019-06-04 18:32] LABS: APPEARANCE,URINE CLEAR; BILIRUBIN, URINE NEGATIVE (NEGATIVE); COLOR,URINE PALE YELLOW; GLUCOSE, URINE (UA) NEGATIVE (NEGATIVE); KETONES,URINE NEGATIVE (NEGATIVE); LEUKOCYTE ESTERASE ,URINE NEGATIVE (NEGATIVE); NITRITE,URINE NEGATIVE (NEGATIVE); PH,URINE 7 (4.5-8.0); PROTEIN,URINE NEGATIVE (NEGATIVE); UROBILINOGEN,URINE NORMAL MG/DL (0.0-1.0)
--- NOTE | 2019-06-04 19:18 | NUR ---
HAND-OFF: Report given to Genesis PADILLA. Patient in stable condition.
[2019-06-05 04:00] VITALS: BP 122/74
--- NOTE | 2019-06-05 05:28 | NUR ---
NURSE NOTE: Pt is A/Ox4 with stable VS. Orders reviewed. Skin is intact. Pt does not complain of any pain. At approx. 0415 pt requested to go outside, so she was accompanied by RN. Pt smoked against education and known MD orders against smoking. Pt verbalized understanding of her actions. Charge nurse made aware. Pt showered this AM and bed linens were changed. Call correa remains within reach. Will continue to monitor.
[2019-06-05 05:47] LABS: BASOPHILS % (AUTO) 1.3 % (0.0-2.0); EOSINOPHILS % (AUTO) 4.5 % (0.0-3.0); HEMATOCRIT 41.5 % (37.0-47.0); HEMOGLOBIN 13.8 G/DL (12.0-16.0); LYMPHOCYTES % (AUTO) 37.5 % (20.0-45.0); MEAN CORPUSCULAR VOLUME 92 FL (80-99); MONOCYTES % (AUTO) 8.3 % (1.0-10.0); NEUTROPHILS % (AUTO) 48.4 % (45.0-75.0); PLATELET COUNT 318 K/UL (150-450); RED BLOOD COUNT 4.53 M/UL (4.20-5.40); RED CELL DISTRIBUTION WIDTH 12.2 % (11.6-14.8); WHITE BLOOD COUNT 8.2 K/UL (4.8-10.8)
[2019-06-05 06:06] LABS: ANION GAP 7 mmol/L (5-15); BLOOD UREA NITROGEN 9 mg/dL (7-18); CALCIUM 9.3 MG/DL (8.5-10.1); CARBON DIOXIDE 27 MMOL/L (21-32); CHLORIDE 106 MMOL/L (98-107); CREATININE 0.8 MG/DL (0.55-1.30); POTASSIUM 4.5 MMOL/L (3.5-5.1); SODIUM 140 MMOL/L (136-145)
--- NOTE | 2019-06-05 07:30 | NUR ---
NURSE NOTES: Patient is in bed awake and able to verbalize needs. Stable. Denies pain or SOB at this time. Patient encouraged to use call light for assistance, verbalized understanding. Patient is in bed in locked and lowest position with call light within reach. Will continue to monitor.
--- NOTE | 2019-06-05 07:35 | NUR ---
HAND-OFF: Report given to Gabriella. Pt is stable, endorsed that patient smoked a cigarette this AM.
[2019-06-05 08:00] VITALS: BP 139/82
[2019-06-05] MEDS: Doxycycline Monohydrate 100mg ORAL SCH (08:42)
[2019-06-05] MEDS: Magnesium Oxide 400mg tab ORAL SCH ×2 (08:42→12:52)
--- NOTE | 2019-06-05 09:00 | NUR ---
NURSE NOTES: Patient told RN that she needs to go outside for fresh air. Patient assisted outside via wheelchair without incident. While outside, patient pulled out cigarettes and smoked. Patient is aware of hospital's nonsmoking policy, patient stated that she is aware. Patient is aware of health risks associated with smoking cigarettes. Patient finished cigarette and was assisted back into bed by RN without incident.
[2019-06-05 12:00] VITALS: BP 128/89
--- NOTE | 2019-06-05 14:34 | Discharge Instructions ---
Discharge Instructions Discharge Instructions Follow up with: PCP Resume Normal Activity?: Yes Activity: resume normal activities Follow Up Orders PCP FOLLOW UP AND SET UP RHEUMATOLOGY CONSULT CXR IN 3 MONTHS FOR LUNG NODULE FOLLOW UP Return to Work/School on: Jun 05, 2019 For Congestive Heart Failure Reminder Report to your physician any weight gain of 5 pounds or more in one week. Simone Navarro MD Jun 05, 2019 14:34
--- NOTE | 2019-06-05 14:36 | Discharge Summary ---
Discharge Summary Hospital Course Date of Admission Jun 01, 2019 at 00:21 Date of Discharge JUN 05, 2019 Admitting Diagnosis SEPSIS Reason for Hospitalization: body aches HPI Chela Joyner is a 48 year old female who was admitted on Jun 01, 2019 at 00:21 for Sepsis Procedures pelvic exam Hospital Course 48-year-old female past medical history of UTI, PID, presents with generalized weakness, muscle aches #Vague symptoms, generalized malaise, SIRS space DDX: Viral etiology versus PID, vs autoimmune versus infectious including rickettsial diseases #Sepsis secondary to GPC bacteremia S. Homminis vs contaminant. Surveillance blood cultures were negative and NGT noted, -discharge noted on pelvic exam 06/02 - f/u wet mount: neg - f/u gc chalmydia,culture - gpc on bxs,staph hominims , contamination is possible -Check 2D echo: no veg -abx per ID: cont Vanco (06/02) / doxy (06/02-)-> doxy changed to po 2/2 iv infiltration and will [id number] more days of doxycycline. s/p one dose ceftriaxone 250 mg IM 06/02 s/p flagyl (wet mount neg) dcd 06/02 -ID consult, appreciate recs -Chest x-ray: Negative -UA negative -No open wounds -Titers per ID such as Lyme disease -Rheumatology consult, not available -ARNOL, lupus Sjogren's work-up pending and PRIOR testing has been negative -Supportive care - CT a/p: Bilateral diffuse interstitial septal thickening, most likely on the basis of interstitial edema #Acute leukocytosis, resolved -WBC 23.6-19 0.2-14.2 -Plan as per above #Lung nodule -Follow-up outpatient x-ray discussed with patient today -Evaluated by hematology, appreciate recs #Smoking history -Social work -Cessation education -Nicotine patch offered to patient however she refused # FULL CODE Discharge Medications Continued Medications: Doxycycline Monohydrate* (Doxycycline Monohydrate*) 100 Mg Capsule 100 MG ORAL Q12H, #14 CAP 0 Refills Discontinued Medications: Nitrofurantoin Monohyd/M-Cryst (Nitrofurantoin Nelson-Mcr 100 mg) 100 Mg Capsule 100 MG ORAL Q12H, #14 CAP Discharge Condition Upon Discharge: stable Discharge Disposition Patient was discharged to HOME Discharge Diagnoses: (1) Coagulase negative Staphylococcus bacteremia (2) Vaginitis Discharge Instructions Discharge Instructions Follow up with: PCP Activity: resume normal activities May Return to Work/School On: Jun 05, 2019 Simone Navarro MD Jun 05, 2019 14:36
--- NOTE | 2019-06-05 15:22 | NUR ---
NURSE NOTES: Patient discharged home as ordered. Stable. Denies pain or SOB. Patient and her mother Sherrie were given thorough discharge instructions by RN, patient and mother verbalized understanding. Patient has all belongings. Patient has prescription. Patient stated that she will get her prescription filled at her own pharmacy and did not want RN to fill it for her at [facility] pharmacy. Medication instructions given to patient and mother, patient and mother verbalized understanding. Patient has no IV access. Skin is clean, dry, and intact. patient assisted into private vehicle by mother without incident.
--- NOTE | 2019-06-05 15:38 | Hematology/Onc Progress Note ---
Assessment/Plan Assessment/Plan ASSESSMENT AND RECS # Leukocytosis/elevated white blood cell count, unspecified likely related to sepsis --> have reviewed peripheral smear and bandemia/neutrophilia noted --> continue antibiotics by ID team --> wbc trend 19-->14-->7 --> monitor for resolution # Lung nodule left lower lobe approx 0.5cm, noted on ct of the chest/abd/pelvis --> f/u outpatient x-ray --> can get ct scan chest in 12 months --> given age and risk factors, low liklihood mlaignancy # Generalized malaise --> due to infection # Sepsis secondary to bacteremia --> ID is following, appreciate recs --> rheum w/u prn --> abx per ID # Smoking history The timing of this note does not necessarily reflect the time of the patient was seen. GREATLY APPRECIATE CONSULTATION. Subjective Constitutional: Denies: no symptoms, chills, fever, malaise, weakness, other HEENT: Denies: no symptoms, eye pain, blurred vision, tearing, double vision, ear pain, ear discharge, nose pain, nose congestion, throat pain, throat swelling, mouth pain, mouth swelling, other Respiratory: Denies: no symptoms, cough, shortness of breath, SOB with excertion, SOB at rest, sputum, wheezing, other Gastrointestinal/Abdominal: Denies: no symptoms, abdomen distended, abdominal pain, black stools, tarry stools, blood in stool, constipated, diarrhea, difficulty swallowing, nausea, poor appetite, poor fluid intake, rectal bleeding , vomiting, other Genitourinary: Denies: no symptoms, burning, discharge, frequency, flank pain, hematuria, incontinence, pain, urgency, other Neurologic/Psychiatric: Denies: no symptoms, anxiety, depressed, emotional problems, headache, numbness, paresthesia, pre-existing deficit, seizure, tingling, tremors, weakness, other Endocrine: Denies: no symptoms, excessive sweating, flushing, intolerance to cold, intolerance to heat, increased hunger, increased thirst, increased urine, unexplained weight gain, unexplained weight loss, other Allergies: Coded Allergies: No Known Allergies (Unverified , 03/16/16) Subjective 06/02: no overnight events, cdiff pending, labs reviewed 06/04: remains on doxy and vanc, labs reviewed, no bleeding 06/05: for dc home today, no f/c, no bleeding noted, no major events Objective Objective Current Medications Medications (Trade) Dose Ordered Sig/Adriana Route PRN Reason Start Time Stop Time Status Last Admin Dose Admin Acetaminophen (Tylenol) 650 mg Q4H PRN ORAL Mild Pain/Temp > 100.5 06/01/19 05:00 07/01/19 04:59 06/03/19 21:12 Acetaminophen/ Hydrocodone Bitart (Modena 5/325) 1 tab Q4H PRN ORAL Moderate Pain (Pain Scale 4-6) 06/01/19 05:00 06/08/19 04:59 06/02/19 10:33 Acetaminophen/ Hydrocodone Bitart (Modena 5/325) 2 tab Q4H PRN ORAL Severe Pain (Pain Scale 7-10) 06/01/19 05:00 06/08/19 04:59 06/01/19 21:54 Diphenhydramine HCl (Benadryl) 25 mg Q6H PRN IVP Itching 06/03/19 23:15 07/03/19 23:14 06/04/19 03:10 Doxycycline Monohydrate (Doxycycline Monohydrate) 100 mg EVERY 12 HOURS ORAL 06/04/19 10:30 06/11/19 10:29 06/05/19 08:42 Magnesium Oxide (Mag-Ox 400mg) 400 mg THREE TIMES A DAY ORAL 06/04/19 13:00 07/04/19 12:59 06/05/19 12:52 Morphine Sulfate (Morphine Sulfate) 2 mg Q4H PRN IVP Severe breakthru pain 06/01/19 05:00 06/08/19 04:59 Ondansetron HCl (Zofran) 4 mg Q4H PRN IVP Nausea & Vomiting 06/01/19 05:00 07/01/19 04:59 06/03/19 09:01 Last 24 Hour Vital Signs Date Time Temp Pulse Resp B/P (MAP) Pulse Ox O2 Delivery O2 Flow Rate FiO2 06/05/19 12:00 98.9 86 20 128/89 (102) 96 06/05/19 09:00 Room Air 06/05/19 08:00 98.7 88 18 139/82 (101) 95 06/05/19 04:00 97.6 86 17 122/74 (90) 98 06/04/19 23:51 97.8 86 17 124/84 (97) 98 06/04/19 21:39 Room Air 06/04/19 20:00 97.5 84 17 130/87 (101) 98 06/04/19 16:00 98.7 82 17 129/84 (99) 98 06/04/19 12:00 98.6 90 17 120/81 (94) 100 06/04/19 09:00 Room Air 06/04/19 08:00 98.3 83 17 136/81 (99) 100 06/04/19 04:27 99.2 68 19 143/96 (112) 100 06/04/19 00:00 99.2 82 18 142/97 (112) 99 06/03/19 21:00 Room Air 06/03/19 20:00 99.3 87 18 140/91 (107) 100 06/03/19 16:00 98.3 93 19 130/75 (93) 99 Intake and Output 06/04/19 06/05/19 19:00 07:00 Intake Total 1400 ml 480 ml Balance 1400 ml 480 ml Intake Oral 1400 ml 480 ml # Voids 3 3 Labs Test 06/03/19 07:10 06/04/19 07:10 06/04/19 18:00 06/05/19 04:50 White Blood Count 7.9 K/UL (4.8-10.8) 7.4 K/UL (4.8-10.8) 8.2 K/UL (4.8-10.8) Red Blood Count 4.27 M/UL (4.20-5.40) 4.55 M/UL (4.20-5.40) 4.53 M/UL (4.20-5.40) Hemoglobin 12.7 G/DL (12.0-16.0) 13.7 G/DL (12.0-16.0) 13.8 G/DL (12.0-16.0) Hematocrit 38.9 % (37.0-47.0) 41.3 % (37.0-47.0) 41.5 % (37.0-47.0) Mean Corpuscular Volume 91 FL (80-99) 91 FL (80-99) 92 FL (80-99) Mean Corpuscular Hemoglobin 29.8 PG (27.0-31.0) 30.2 PG (27.0-31.0) 30.5 PG (27.0-31.0) Mean Corpuscular Hemoglobin Concent 32.7 G/DL (32.0-36.0) 33.2 G/DL (32.0-36.0) 33.3 G/DL (32.0-36.0) Red Cell Distribution Width 12.3 % (11.6-14.8) 12.0 % (11.6-14.8) 12.2 % (11.6-14.8) Platelet Count 279 K/UL (150-450) 277 K/UL (150-450) 318 K/UL (150-450) Mean Platelet Volume 5.4 FL (6.5-10.1) 5.2 FL (6.5-10.1) 5.1 FL (6.5-10.1) Neutrophils (%) (Auto) 63.2 % (45.0-75.0) 54.7 % (45.0-75.0) 48.4 % (45.0-75.0) Lymphocytes (%) (Auto) 24.1 % (20.0-45.0) 31.8 % (20.0-45.0) 37.5 % (20.0-45.0) Monocytes (%) (Auto) 7.7 % (1.0-10.0) 6.9 % (1.0-10.0) 8.3 % (1.0-10.0) Eosinophils (%) (Auto) 4.1 % (0.0-3.0) 5.4 % (0.0-3.0) 4.5 % (0.0-3.0) Basophils (%) (Auto) 0.9 % (0.0-2.0) 1.2 % (0.0-2.0) 1.3 % (0.0-2.0) Sodium Level 139 MMOL/L (136-145) 139 MMOL/L (136-145) 140 MMOL/L (136-145) Potassium Level 3.6 MMOL/L (3.5-5.1) 4.1 MMOL/L (3.5-5.1) 4.5 MMOL/L (3.5-5.1) Chloride Level 107 MMOL/L (98-107) 106 MMOL/L (98-107) 106 MMOL/L (98-107) Carbon Dioxide Level 24 MMOL/L (21-32) 23 MMOL/L (21-32) 27 MMOL/L (21-32) Anion Gap 9 mmol/L (5-15) 10 mmol/L (5-15) 7 mmol/L (5-15) Blood Urea Nitrogen 9 mg/dL (7-18) 9 mg/dL (7-18) 9 mg/dL (7-18) Creatinine 0.7 MG/DL (0.55-1.30) 0.7 MG/DL (0.55-1.30) 0.8 MG/DL (0.55-1.30) Estimat Glomerular Filtration Rate > 60 mL/min (>60) > 60 mL/min (>60) > 60 mL/min (>60) Glucose Level 90 MG/DL (74-106) 98 MG/DL (74-106) 82 MG/DL (74-106) Calcium Level 8.7 MG/DL (8.5-10.1) 9.1 MG/DL (8.5-10.1) 9.3 MG/DL (8.5-10.1) Phosphorus Level 4.2 MG/DL (2.5-4.9) Magnesium Level 1.7 MG/DL (1.8-2.4) Urine Color Pale yellow Urine Appearance Clear Urine pH 7 (4.5-8.0) Urine Specific [place] 1.010 (1.005-1.035) Urine Protein Negative (NEGATIVE) Urine Glucose (UA) Negative (NEGATIVE) Urine Ketones Negative (NEGATIVE) Urine Blood Negative (NEGATIVE) Urine Nitrite Negative (NEGATIVE) Urine Bilirubin Negative (NEGATIVE) Urine Urobilinogen Normal MG/DL (0.0-1.0) Urine Leukocyte Esterase Negative (NEGATIVE) Height (Feet): 5 Height (Inches): 7.00 Weight (Pounds): 125 Objective GENERAL: No acute distress, appears comfortable, alert HEENT: NCAT, non-icteric eyes, pupils PERRLA Neck: No cervical lymphadenopathy, trachea midline CV: Regular rate and rhythm, no murmurs rubs or gallops RESP: Clear to auscultation bilaterally, no wheezes/rhonchi/crackles ABD: soft, non-distended, no TTP Pelvic exam, thin white discharge at introitus, cervix not visualized, sample sent for gonorrhea chlamydia wet mount and culture. No cervical motion tenderness no ovarian masses noted EXT: Normal muscle tone, +5/5 muscle strength NEURO: No obvious deficits, alert and oriented x3 Kenroy Argueta MD Jun 05, 2019 15:38
== END 2019-06-05 16:45 | disposition home or self-care (01) | DRG 720 ==
LOC: EMR 22:05 → 3E 06-01 00:21 → EDBEDREQ 06-01 03:03
DX: A41.1 Sepsis due to other specified staphylococcus (principal); R91.1 Solitary pulmonary nodule; F17.200 Nicotine dependence, unspecified, uncomplicated; N76.0 Acute vaginitis; F41.9 Anxiety disorder, unspecified
CPT/HCPCS: 36415; 71045; 71250; 74177; 80048; 80053; 80307; 81003; 81025; 83605; 83690; 83735; 84100; 85007; 85025; 86039; 86160; 86225; 86635; 86703; 87040; 87181; 87210; 93306; 96361; 96365; 96375; 99285; J2405; J3490

== ENCOUNTER → 2020-05-04 | Emergency (ER) | payer MEDICAID ==
[~2020-05-04] VITALS: Ht 170.2 cm; Wt 61.2 kg
[~2020-05-04] MED LIST changes: +ACETAMINOPHEN-1 EAC1 ORAL; +CEPHALEXIN500 MG ORAL; +IBUPROFEN600 M1 ORAL; +PHENAZOPYRIDIN100 MG ORAL
[2020-05-04 20:26] VITALS: BP 184/106
--- NOTE | 2020-05-04 20:27 | NUR ---
ED Nurse Note: Patient walked in to ER c/o RT hand fourth digit pain since 3 weeks ago. Patient stated she got cut with unk object 3 weeks ago, and since then has growth on the finger. Patient presented calm, AAO x4, VSS at this time.
[2020-05-04 20:36] VITALS: BP 184/106
--- NOTE | 2020-05-04 20:37 | NUR ---
ED Nurse Note: Pt cleared by health care Provider for discharge. DC instructions/prescription was given and explained to pt and verbalized understanding of teachings. All medical deviecs such as ID band removed. Pt is AAO x4, ambulatory and left with all personal belongings.
--- NOTE | 2020-05-04 20:41 | Emergency Room Report ---
History of Present Illness General Chief Complaint: Upper Extremity Injury Present Illness HPI Disclaimer: Please note that this report is being documented using [employer] technology. This can lead to erroneous entry secondary to incorrect interpretation by the dictating instrument. HPI: 49-year-old female presents for pain of the right fourth finger. Apparently she sustained a small superficial injury 3 weeks ago and then since that time is had a growth on the finger. She complains of 10 out of 10 pain worse with movement and palpation. She states that she has been "banging it on stuff" which has made the pain worse. She also attempted to drain the lesion but only got blood. She has a history of chronic UTI. 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 Patient History Reviewed Nursing Documentation: PMH: Agreed; PSxH: Agreed Nursing Documentation-PMH Hx Cardiac Problems: Yes Hx Hypertension: Yes Hx Cancer: No Hx Gastrointestinal Problems: Yes Hx Neurological Problems: Yes Hx Vertigo: Yes Review of Systems All Other Systems: negative except mentioned in HPI Physical Exam Vital Signs Date Time Temp Pulse Resp B/P (MAP) Pulse Ox O2 Delivery O2 Flow Rate FiO2 25/20 20:15 98.4 100 16 184/106 (132) 98 Room Air Sp02 EP Interpretation: reviewed, normal General Appearance: well appearing, no apparent distress Head: normocephalic, atraumatic Eyes: bilateral eye PERRL, bilateral eye EOMI ENT: hearing grossly normal, moist mucus membranes Neck: full range of motion, supple Respiratory: lungs clear, normal breath sounds, no rhonchi, no respiratory distress, no retraction, no wheezing Cardiovascular #1: normal peripheral pulses, regular rate, rhythm, no murmur Gastrointestinal: non tender, soft, non-distended, no guarding Musculoskeletal: other - Right fourth finger with growth noted at the proximal interphalangeal joint, mildly tender no erythema irregular surface Neurologic: alert, oriented x3, no focal defects Skin: normal color, warm/dry Medical Decision Making Diagnostic Impression: Primary Impression: Viral wart on finger ER Course Patient presented with growth on right finger. It appeared to be a wart. Less likely abscess or deep space infection or flexor tenosynovitis. Patient was in no acute distress on exam. I recommended [id number] treatments. Also recommended ibuprofen as needed for pain. Patient was splinted to protect her finger from further trauma. Stable for discharge return precautions given Last Vital Signs Date Time Temp Pulse Resp B/P (MAP) Pulse Ox O2 Delivery O2 Flow Rate FiO2 05/04/20 20:36 98.4 16 184/106 98 Room Air 05/04/20 20:15 100 Disposition: HOME, SELF-CARE Condition: Stable Scripts Ibuprofen* (MOTRIN*) 600 Mg Tablet 600 MG ORAL Q6H PRN for For Pain, #30 TAB 0 Refills Prov: Kimani Caputo M.D. 05/04/20 Referrals: NON PHYSICIAN (PCP) Patient Instructions: Antonia, [id number] Additional Instructions: patient is instructed to follow-up with her primary care doctor, primary care clinic or [facility] in 1 to 2 days. Patient instructed to return for any worsening symptoms or concerns. Disclaimer: Please note that this report is being documented using [employer] technology. This can lead to erroneous entry secondary to incorrect interpretation by the dictating instrument. Kimani Caputo M.D. May 04, 2020 20:41
== END | disposition home or self-care (01) ==
LOC: EMR 20:30
DX: B07.9 Viral wart, unspecified (principal); I10 Essential (primary) hypertension; F17.210 Nicotine dependence, cigarettes, uncomplicated
CPT/HCPCS: 99282